=== PATIENT | female | born 1950 | race Caucasian/White ===

== ENCOUNTER 2023-10-24 14:40 | Emergency (ER) | payer MEDICARE, OTHER, SELFPAY ==
[2023-10-24] VITALS (22 sets, daily range): BP systolic 91–115; BP diastolic 32–85; PULSE 91–102; BMI 23.8
--- NOTE | 2023-10-24 15:11 | ED.GENMED ---
History of Present Illness
General
Chief Complaint: Fainting Sensation
Source: patient and ambulance crew
Time Seen by Provider: 10/24/23 15:06
History of Present Illness
History of Present Illness:
73-year-old female with past medical history of chronic kidney disease (dialysis normally on Friday but while at [facility] she is getting this Friday and Friday), hypertension, hyperlipidemia presenting to the
emergency department from dialysis where patient reports over the last 30 minutes of her dialysis session she started to feel lightheaded, generalized weakness and as if she were going to pass out. It was reported by EMS that the facility was
having a hard time getting a blood pressure on the patient and when they took patient's blood pressure it was 88/50. Patient was administered 200 mL of normal saline and 0.625 mg of droperidol. She reports feeling significantly better at time of
my examination and otherwise asymptomatic. It was noted that patient was diagnosed with COVID at the beginning of October and ultimately ended up being hospitalized at [facility] for an extended hospitalization and was then transferred to [facility] for rehab where she is currently residing. Patient is otherwise denying any chest pain, shortness of breath, palpitations, new fevers or infectious symptoms, abdominal pain, nausea, vomiting or any other concerns. Patient also notes that she
did not have any breakfast or anything to eat prior to her dialysis which is very 8 for her as well and she believes this is also been a reason why she felt lightheaded during dialysis.
Past History
Past History
ED Past Medical History: HTN, Hypercholesterolemia and Renal failure
ED Past Surgical History: Cholecystectomy and Gynecological
Social History
Tobacco: Former smoker
Alcohol: None
Drug: None
Personal: Single
Living: alone
Employment: Employed
Review of Systems
Review of Systems
All Other Systems: ROS reviewed and negative except as documented in HPI and ROS
Phy Exam
Physical Exam
Physical Exam:
GENERAL: Alert , in no apparent distress
EYE: Clear conjunctiva
NECK: Supple
ENT: o/p clr, mmm.
CARDIAC: Regular rate and rhythm, systolic murmur right second intercostal space.
LUNGS: Clear breath sounds bilaterally, no acute respiratory distress, no wheezes/rales/rhonchi, dialysis port right anterior chest wall
ABDOMEN: Soft, without focal tenderness, no r/g, no cvat
NEUROLOGICAL: Alert and oriented x 3, no focal neuro deficits, moves all extremities
SKIN: Warm and dry, skin intact.
MUSCULOSKELETAL: No edema, well perfused.
PSYCH: Normal and appropriate interaction.
Scores
Heart Failure Risk
Heart Failure Risk Score: Not Applicable
Heart Score for Chest Pain Patients
STEMI patient?: Not applicable
Withdrawal Assessment of Alcohol
Withdrawal Assessment Completed?: Not applicable
Course
Orders/Labs/Results
Orders:
Orders
10/24/23 15:00
Electrocardiogram (*1) Urgent
Reason for Study: Vertigo / Dizzy
10/24/23 15:01
EKG- Treatment ONCE
10/24/23 15:05
Complete Blood Count/With Diff Urgent
Comprehensive Metabolic Panel Urgent
10/24/23 15:11
Orthostatic VS- Treatment ONCE
Abnormal Lab Results
10/24/23
15:05
RBC 2.47 L 10^6/uL
(4.20-5.40)
Hgb 8.2 L g/dL
(12.0-16.0)
Hct 23.7 L %
(37.0-47.0)
MCH 33.2 H pg
(27.0-31.0)
RDW 16.7 H %
(11.5-14.5)
MPV 11.1 H fL
(7.4-10.4)
Absolute Neuts (auto) 8.6 H 10^3/uL
(1.4-6.5)
Absolute Lymphs (auto) 0.6 L 10^3/uL
(1.2-3.4)
Neutrophils % 86.5 H %
(42.2-75.2)
Lymphocytes % 6.2 L %
(20.5-51.1)
Sodium 133 L mmol/L
(135-145)
Carbon Dioxide 21 L mmol/L
(22-30)
Creatinine 1.6 H mg/dL
(0.6-1.0)
Glucose 206 H mg/dl
(70-99)
Total Protein 5.4 L g/dl
(6.3-8.2)
Albumin 3.1 L g/dl
(3.5-5.0)
10/24/23 15:05
10/24/23 15:05
Vital Signs
Initial and Last Documented VS:
Initial Vital Signs
Temp Pulse Resp BP Pulse Ox
98.7 F 99 18 115/85 92
10/24/23 14:48 10/24/23 14:48 10/24/23 14:48 10/24/23 14:48 10/24/23 14:48
Last Documented Vital Signs
Temp Pulse Resp BP Pulse Ox
98.7 F 95 17 95/60 92
10/24/23 14:48 10/24/23 21:00 10/24/23 21:00 10/24/23 21:00 10/24/23 14:48
MDM/Problems Addressed
Differential Diagnosis Includes:
Orthostasis, hypotension, electrolyte abnormality, less concern for acute infectious etiology
MDM/Problems Addressed:
73-year-old female presenting to the emergency department for evaluation of generalized weakness, lightheadedness and near syncope. Symptoms started with 30 minutes remaining in her dialysis session. Notes that while she had COVID she was still
getting regular dialysis. I do suspect a degree of orthostasis/hypotension likely from being dialyzed as well as not having anything to eat or drink this morning. Patient reports full symptomatic improvement and without any specific concerns while
in the ER. Will obtain labs, fluids by mouth as tolerated and will check orthostatic vital signs. I do anticipate discharge back to [facility] for continued rehab.
Chronic conditions affecting care: Kidney disease
*Pulse Oximetry
Patient hypoxic: no
*Sales Service Assistant Interpretation
Rate: normal
Rhythm: sinus and PVC's
*Critical Care Note
Total Time (30-74mins, 75-104mins- exclusive of procedures): Not Applicable
Patient Management
Escalation/DeEscalation of care consider admission/obs:
Patient continues to feel well and in no acute distress. No lab comparison however I suspect patient's anemia is likely from chronic kidney disease. No significant electrolyte derangement. Asymptomatic while checking orthostatics. Patient feels
comfortable being discharged back to her rehab facility. Stable for discharge and will arrange for transport.
ED Attending Note
-
Portions of this chart may have been created with voice recognition software.� Occasional wrong word or��sound alike� substitutions may have occurred due to the inherent limitations of voice recognition software.
Discharge Plan
Departure
Patient Disposition: Longterm/SNF
Date of Disposition: 10/24/23
Time of Disposition: 17:21
Patient with high blood pressure during this ER visit?: No
Discharge Problem:
Orthostasis, CKD (chronic kidney disease)
Prescriptions:
No Action
furosemide 40 mg Tablet
40 mg PO .BID ON MOWEFR
acetaminophen 325 mg Tablet
650 mg PO Q6HPRN PRN (Reason: mild pain)
Guaifenesin DM 10-200 mg/5 mL Liquid
10 ml PO Q6HPRN PRN (Reason: cough)
clopidogrel 75 mg Tablet
75 mg PO DAILY
insulin aspart U-100 100 unit/mL Solution
1 sliding scale dose SC AC
Patient Comments:
10/24/23: 150-200=1u,201-250=2u,251-300=3u,301-350=4u,351-400=5u,>400=6u
docusate sodium [Colace] 100 mg Capsule
100 mg PO DAILY
aspirin 81 mg Tablet,Chewable
81 mg PO DAILY
midodrine 2.5 mg Tablet
2.5 mg PO DAILYPRN PRN (Reason: <90 SBP)
metoprolol succinate [Toprol XL] 25 mg Tablet Extended Release 24 Hr
25 mg PO DAILY
rosuvastatin 40 mg Tablet
40 mg PO QPM
cholecalciferol (vitamin D3) [Vitamin D3] 25 mcg (1,000 unit) Tablet
25 mcg PO DAILY
ferrous gluconate 325 mg (36 mg iron) Tablet
324 mg PO DAILY
krill oil 500 mg Capsule
500 mg PO DAILY
sacubitril-valsartan 24-26 mg Tablet
1 tab PO BID
Referrals:
José Antonio Gage I., DO [Family Provider] -
Interventions
Interventions:
*Risk Screen - Suicide Last Done: 10/24/23 14:58
*General Assessment Last Done: 10/24/23 14:48
*Neglect/Abuse Screening Last Done: 10/24/23 14:48
*ED COVID-19 Vaccine History Last Done: 10/24/23 14:59
ED- Cardiac Assessment Last Done: 10/24/23 20:53
ED- Neurological Assessment Last Done: 10/24/23 15:00
Discharge Date and Time
Print Language: CYPRIOT
[2023-10-24 15:20] LABS: % Basophils 0.4 % (0-2); % Eosinophils 0.9 % (0-6); % Immature Granulocytes 0.3 % (0-0.5); % Lymphocytes 6.2 % (20.5-51.1); % Monocytes 5.7 % (1.7-9.3); % Neutrophils 86.5 % (42.2-75.2); Absolute Eosinophils 0.1 10^3/uL (0-0.7); Absolute Lymphocytes 0.6 10^3/uL (1.2-3.4); Absolute Monocytes 0.6 10^3/uL (0.1-0.6); Absolute Neutrophils 8.6 10^3/uL (1.4-6.5); Hematocrit 23.7 % (37.0-47.0); Hemoglobin 8.2 g/dL (12.0-16.0); Mean Corp Hgb Conc. 34.6 g/dL (33.0-37.0); Mean Corpuscular Hgb 33.2 pg (27.0-31.0); Mean Platelet Volume 11.1 fL (7.4-10.4); Nucleated Red Blood Cells % 0 %; Platelet Count 176 10^3/uL (130-400); Red Blood Cell Count 2.47 10^6/uL (4.20-5.40); Red Cell Dist. Width 16.7 % (11.5-14.5)
[2023-10-24 15:30] LABS: ALT (SGPT) 23 U/L (0-35); AST (SGOT) 19 U/L (14-36); Albumin 3.1 g/dl (3.5-5.0); Alkaline Phosphatase 85 U/L (38-126); Blood Urea Nitrogen 14 mg/dl (7-17); Calcium 8.6 mg/dl (8.4-10.2); Carbon Dioxide 21 mmol/L (22-30); Chloride 100 mmol/L (98-107); Estimated Creatinine Clearance 24 ml/min; Glucose 206 mg/dl (70-99); Potassium 3.7 mmol/L (3.5-5.1); Sodium 133 mmol/L (135-145); Total Bilirubin 0.5 mg/dl (0.2-1.3); Total Protein 5.4 g/dl (6.3-8.2); eGFR 33.42
== END 2023-10-24 21:49 ==
LOC: EMR 14:40
PROVIDERS: EMERGENCY PHYSICIAN Emergency Medicine; FAMILY PHYSICIAN Internal Medicine
DX: R55 Syncope and collapse (principal); I12.0 Hypertensive chronic kidney disease with stage 5 chronic kidney disease or end stage renal disease; N18.6 End stage renal disease; Z99.2 Dependence on renal dialysis; E78.00 Pure hypercholesterolemia, unspecified; Z79.82 Long term (current) use of aspirin; Z86.16 Personal history of COVID-19; Z87.891 Personal history of nicotine dependence; Z90.49 Acquired absence of other specified parts of digestive tract
CPT/HCPCS: 99284; 80053; 85025; 93005

== ENCOUNTER 2023-12-30 07:41 | Inpatient (IN) | payer MEDICARE, OTHER, SELFPAY ==
[2023-12-27 17:42] VITALS: BP 134/51
[2023-12-27 18:12] LABS: % Basophils 1.6 % (0-2); % Eosinophils 4.1 % (0-6); % Immature Granulocytes 0.2 % (0-0.5); % Lymphocytes 15.1 % (20.5-51.1); % Monocytes 10.6 % (1.7-9.3); % Neutrophils 68.4 % (42.2-75.2); Absolute Basophils 0.1 10^3/uL (0-0.2); Absolute Eosinophils 0.3 10^3/uL (0-0.7); Absolute Monocytes 0.7 10^3/uL (0.1-0.6); Absolute Neutrophils 4.4 10^3/uL (1.4-6.5); Hematocrit 39.4 % (37.0-47.0); Mean Corpuscular Hgb 32.3 pg (27.0-31.0); Mean Platelet Volume 10.2 fL (7.4-10.4); Nucleated Red Blood Cells % 0 %; Platelet Count 223 10^3/uL (130-400); Red Blood Cell Count 4.02 10^6/uL (4.20-5.40); Red Cell Dist. Width 15.1 % (11.5-14.5); White Blood Cell Count 6.4 10^3/uL (4.8-10.8)
[2023-12-27 18:16] LABS: Erythrocyte Sed Rate 28 mm/hour (0-20)
[2023-12-27 18:23] LABS: Lactic Acid 1.2 mmol/L (0.7-2.0)
[2023-12-27 18:27] LABS: ALT (SGPT) 13 U/L (0-35); AST (SGOT) 18 U/L (14-36); Albumin 4.1 g/dl (3.5-5.0); Alkaline Phosphatase 68 U/L (38-126); Blood Urea Nitrogen 39 mg/dl (7-17); Calcium 9.4 mg/dl (8.4-10.2); Carbon Dioxide 19 mmol/L (22-30); Chloride 98 mmol/L (98-107); Glucose 173 mg/dl (70-99); Potassium 3.9 mmol/L (3.5-5.1); Sodium 134 mmol/L (135-145); Total Bilirubin 0.3 mg/dl (0.2-1.3); Total Protein 6.4 g/dl (6.3-8.2); eGFR 15.11
[2023-12-27 19:42] VITALS: BMI 21.9
[2023-12-27 19:43] VITALS: BP 142/54
--- NOTE | 2023-12-27 19:53 | ED.MUSCINJ ---
HPI-Injury
General
Chief Complaint: Musculo-Skeletal Complaint
Source: patient and long-term
Exam Limitations: none
Time Seen by Provider: 12/27/23 18:37
Nursing documentation reviewed up to this point in time: agreed with
History of Present Illness-Injury
Is this injury a work related problem?: No
Is pt an associate of [facility]/[place]?: No
Initial Injury comments:
Patient to ED from [facility] for BLE arterial stenosis, nonhealing wound right 5th toe, bilateral foot pain. Patient states she has had pain and tingling in her feet for the past 2 weeks. SHe had an outpatient arterial doppler completed
today. Results reveal severe BLE arterial stenosis. PCP advised her to come to ED for admission. She is a dialysis pateint. Receives dialysis Fri. She reports completing dialysis yesterday. Brought to ED via EMS for eval.
Past History
Past History
ED Past Medical History: CAD, CHF, HTN, Hypercholesterolemia, NIDDM, [place] and Renal failure
ED Past Surgical History: Cholecystectomy and Gynecological
Social History
Tobacco: Former smoker
Alcohol: None
Drug: None
Personal: Single
Living: alone
Employment: Employed
Review of Systems
Review of Systems
Allergies reviewed?: Yes
All Other Systems: ROS reviewed and negative except as documented in HPI and ROS
Constitutional: Reports no symptoms
EENT: Reports no symptoms
Respiratory: Reports no symptoms
Cardiac: Reports no symptoms
ABD/GI: Reports no symptoms
: Reports no symptoms
Musculoskeletal: Reports joint pain (pain to bilateral feet)
Skin: Reports other (Nonhealing wound right 5th toe, necrotic tissue)
Neurological: Reports no symptoms
Psychiatric: Reports no symptoms
Phy Exam
General Physical Exam
General Presentation: mild distress
General age: appears stated age
General Skin: warm and dry
General Habitus: normal
General Mental: alert
Cardiovascular Exam
Cardiovascular Exam: regular rate/rhythm
Pulmonary Exam
Pulmonary Exam: lungs clear and no respiratory distress
Gastrointestinal Exam
Gastrointestinal Exam: normal bowel sounds and non tender
Musculoskeletal Exam
Musculoskeletal Exam: other (bilateral DP by doppler. Unable to obtain bilateral PT by doppler)
Skin Exam
Skin Exam: normal color, warm/dry, no rash and other (Nonhealing wound right 5th toe. surrounding cellulitis, necrotic tissue)
Psychiatric Exam
Psychiatric Exam: normal mood/affect
Injury Course
Orders/Labs/Results
Orders:
Orders
12/27/23 18:02
C-Reactive Protein Urgent
Complete Blood Count/With Diff Urgent
Comprehensive Metabolic Panel Urgent
Erythrocyte Sed Rate Urgent
Lactate Level [Lactic Acid] Urgent
12/27/23 19:38
CT Abd Aorta Angio W/ Run Off Urgent
Comment:
Reason For Exam: Severe BLE stenosis.
12/27/23 21:47
Vancomycin 1 Gram/200 ml [Vancocin] 1 gram in 200 ml IV NOW
12/27/23 23:14
Vascular Surgery Consult Urgent
Consulting Provider: Mirna Faustin
Was physician already notified: Yes
12/27/23 23:15
PODIATRY CONSULT Urgent
Consulting Provider: Salvador Lopez
Was physician already notified: Yes
Abnormal Lab Results
12/27/23
18:02
RBC 4.02 L 10^6/uL
(4.20-5.40)
MCH 32.3 H pg
(27.0-31.0)
RDW 15.1 H %
(11.5-14.5)
Absolute Lymphs (auto) 1.0 L 10^3/uL
(1.2-3.4)
Absolute Monos (auto) 0.7 H 10^3/uL
(0.1-0.6)
Lymphocytes % 15.1 L %
(20.5-51.1)
Monocytes % 10.6 H %
(1.7-9.3)
ESR 28 H mm/hour
(0-20)
Sodium 134 L mmol/L
(135-145)
Carbon Dioxide 19 L mmol/L
(22-30)
BUN 39 H mg/dl
(7-17)
Creatinine 3.1 H mg/dL
(0.6-1.0)
Glucose 173 H mg/dl
(70-99)
C-Reactive Protein 10.90 H mg/L
(0.0-10.00)
12/27/23 18:02
12/27/23 18:02
*Radiology
Radiology exam reviewed: radiology read reviewed
*Pulse Oximetry
Patient hypoxic: no
*Critical Care Note
Total Time (30-74mins, 75-104mins- exclusive of procedures): Not Applicable
Update Note
Update Note:
Dr. Faustin notified of patient status, outpatient US results. Copy of CT results sent to him via [employer] text. Will see patient in AM. Dr. Lopez also consulted and will follow upw tih patient in AM
ED Attending Note
-
Portions of this chart may have been created with voice recognition software.� Occasional wrong word or��sound alike� substitutions may have occurred due to the inherent limitations of voice recognition software.
Discharge Plan
Departure
Patient Disposition: Admit
Date of Disposition: 12/27/23
Time of Disposition: 21:49
Presentation/result/management discussed w/ accepting MD/DO: Hospitalist
Patient with high blood pressure during this ER visit?: No
Condition: Fair
Covid-19: Not Applicable
Discharge Problem:
Arterial stenosis, PAD (peripheral artery disease), Abscess or cellulitis of foot, Non-healing open wound of toe
Referrals:
Nati Don MD [Family Provider] -
Interventions
Interventions:
*Risk Screen - Suicide Last Done: 12/27/23 17:48
*General Assessment Last Done: 12/27/23 19:43
*Neglect/Abuse Screening Last Done: 12/27/23 17:48
ED- Fall Risk Assessment Last Done: 12/27/23 19:43
*ED COVID-19 Vaccine History Last Done: 12/27/23 17:46
ED-Musculoskeletal Assessment Last Done: 12/27/23 19:43
Discharge Date and Time
Print Language: UKRAINIAN
--- NOTE | 2023-12-27 22:16 | HPS.HSE ---
Addendum entered and electronically signed by Luis Navarrete DO 12/27/23 23:53:
Patient seen and examined independently. Agree with findings and plan as set forth by JAMES Carmichael.
Patient is a 73y F with PMH significant for ASCVD, ESRD on HD and DM-II who was sent to the ED this evening from local [facility] for evaluation of R foot discoloration. Patient states that she feels fairly well. She does not have significant discomfort
in the foot. She has ecchymosis / discoloration of the R 5th toe with some superficial skin peeling and surrounding bruising / petechiae. Patient cannot recall any specific injury, trauma, etc. Patient denies any complaints such as fevers,
chills, N/V/D, etc.
Patient was hospitalized about 2 months ago (has been at [facility] since). She believes this was at [facility] though she is not clear on the reason for her initial hospitalization.
Patient was started on oral cephalosporin at the [facility] with her first dose given after HD yesterday (12/25).
Ass:
R Foot Discoloration
ASCVD
ESRD on HD
Chronic HF - Unknown Type
Hypotension
DM-II
Anemia of CKD
Secondary Hyperparathyroidism
Ambulatory Dysfunction
RUE Weakness / Nerve Injury (associated with AVF placement / removal)
Plan:
Observe overnight for further evaluation and treatment.
CT angio was done in the ED this evening (scanned report) which shows significant and widespread vascular disease.
Vascular Surgery and Podiatry consulted for further evaluation.
Continue current ASCVD med regimen including DAPT, statin, etc.
Observe off of further abx for now.
Follow for any clinical changes.
Continue usual outpatient medications.
Follow glucose and cover with SSI as needed.
Nephrology evaluation for HD needs during acute stay.
Send to [facility] for records of most recent hospitalization.
Original Note:
Family Physician
-
Family Physician: Nati Don
Chief Complaint
-
Sent from [facility] rehab for outpatient arterial Doppler showing severe bilateral lower extremity arterial stenosis, right fifth toe reported wound not healing
History of Present Illness
73-year-old female from [facility] half-way with a nonhealing wound to the right fifth toe and bilateral foot pain. The patient states she is unsure how she got bruising to the dorsal part of her right foot with ecchymosis to right fifth toe
and a scab to her left heel. She was unsure if he hit it on anything. She does report a fixed income portfolio manager came to the half-way and fixed her ingrown toenail to her right foot approximately 2 weeks ago. She reports taking 1 dose of cefadroxil 500 mg
yesterday 12/26/2023 at dialysis. She had outpatient arterial Doppler today showing severe bilateral lower extremity arterial stenosis. The report is scanned into the computer. she was advised to come to the ER for admission by her PCP she has
end-stage renal disease and is on dialysis Friday. She states she has been at [facility] for the last 2 months initially had rehab delayed for several weeks due to having COVID in the beginning of October when she arrived
there. She reports she is currently walking with a cane and was able to walk up and down 8 steps over the last week. She believes her discharge is coming up shortly. She lives with her sister who is a chiropractor. They share a home to where the
patient lives on the second floor and has to go up approximately 12 steps. She reports to me she has poor memory recall. She denies headache, fever, chills, chest pain, palpitations, shortness breath, cough, abdominal pain, nausea, vomiting,
diarrhea, urinary symptoms. She states they replaced her dialysis catheter to her right upper chest wall on 3 days ago. She had prior attempt for a fistula placement in her right forearm and suffered nerve damage to her right hand.
Currently she is not able to fully open or fully close hand in a grasp.
Other past medical history ESRD dialysis Friday, COVID-30 October 2023, memory impairment per patient, chronic ambulatory dysfunction, PVD, carotid stenosis, anemia of chronic disease, CHF, HTN, HLD, DM2/diabetic retinopathy,
hyperparathyroidism, hearing impaired left from childhood, nonrheumatic aortic valve stenosis, vertigo, pleural effusion,? Skin CA removal to nose
Medical History
Past Medical History
Past Medical History: Reports Other
Additional Past Medical History:
ESRD dialysis Friday
anemia of chronic disease
Memory impairment per patient reported
COVID-30 October 2023
Chronic ambulatory dysfunction
PVD
Carotid stenosis
CHF unknown type
HTN
HLD
DM2/diabetic retinopathy,
Hyperparathyroidism
Hearing impaired left from childhood
Nnonrheumatic aortic valve stenosis
Vertigo
pleural effusion Per half-way chart
? Skin CA removal to nose
Past Surgical History: Reports Other
Additional Past Surgical History:
Left ear surgery
Social History
Tobacco: Non-smoker
Alcohol: None
Drug: None
Personal: Single
Living: With Family (Lives upstairs above her sister Mona)
Employment: Retired
Family History
Family History: Unable to Obtain
Allergies / Home Medications
Allergies reflects when Allergies were last updated in [email or web address].
Home Medications with original date entered in [email or web address]
Allergy/Medication List:
Allergies
Allergy/AdvReac Type Severity Reaction Status Date / Time
No Known Allergies Allergy Unverified 10/24/23 14:48
Home Medications
acetaminophen 325 mg tablet 650 mg PO Q6H PRN mild pain 12/27/23
aspirin 81 mg chewable tablet 81 mg PO DAILY 12/27/23
cefadroxil 500 mg capsule 500 mg PO MOWEFR 12/27/23
cholecalciferol (vitamin D3) 25 mcg (1,000 unit) tablet 25 mcg PO DAILY 12/27/23
clopidogrel 75 mg tablet 75 mg PO DAILY 12/27/23
docusate sodium 100 mg capsule (Colace) 100 mg PO DAILY 12/27/23
ferrous gluconate 325 mg (36 mg iron) tablet 325 mg PO DAILY 12/27/23
furosemide 40 mg tablet 80 mg PO BID 12/27/23
guaifenesin 100 mg/5 mL oral liquid 200 mg PO Q8H PRN cough 12/27/23
metoprolol succinate 25 mg tablet,extended release 24 hr 25 mg PO DAILY 12/27/23
midodrine 5 mg tablet 5 mg PO BID 12/27/23
omega 8-[id number]-[id number]-fish oil 1,000 mg (120 mg-180 mg) capsule (Fish Oil) 1 cap PO DAILY 12/27/23
ondansetron HCl 4 mg tablet 4 mg PO Q6H PRN nausea 12/27/23
rosuvastatin 40 mg tablet 40 mg PO DAILY 12/27/23
sacubitril 24 mg-valsartan 26 mg tablet 1 tab PO BID 12/27/23
trazodone 50 mg tablet 25 mg PO HS 12/27/23
white petrolatum 41 % topical ointment (Aquaphor Original) 1 applic topical DAILY PRN itching 12/27/23
Review of Systems
-
History Source: Patient
A 12 point ROS was completed and negative except as noted: Yes
Constitutional: Denies Fever or Fatigue
EENT: Denies Sore Throat or Runny Nose
Respiratory: Denies Cough or Trouble Breathing
Cardiac: Denies Chest Pain, Diaphoresis or Palpitations
Abdomen/GI: Denies Abdominal Pain, Nausea, Vomiting, Diarrhea, Constipated, Bloody Stools or Black Stools
: Denies Dysuria, Frequency, Flank Pain, Incontinence, Difficulty Voiding or Urgency
Musculoskeletal: Denies Joint Pain or Edema
Skin: Reports Other (Contusion right fifth toe, right dorsal foot under third fourth fifth metatarsal with a petechial rash, scab to right heel, right great toenail partial missing due to removal of ingrown toenail); Denies Itching or Rash
Neurological: Reports Other (Chronic right hand weakness inability to fully grasp or open right hand secondary to nerve damage from AV fistula attempt in the right forearm); Denies Dizzy, Headache or Numbness
Endocrine: Reports No Symptoms
Hematologic/Lymphatic: Reports No Symptoms
Psych: Reports Calm
Physical Exam
Vital Signs
Vital Signs
Temp Pulse Resp BP Pulse Ox
98.6 F 79 20 142/54 94
12/27/23 19:43 12/27/23 19:43 12/27/23 19:43 12/27/23 19:43 12/27/23 19:43
Physical Exam
General: Comfortable and Conversant; No Pain, Fever or Chills
HEENT: NormoCephalic, Anicteric, Moist mucous membranes, PERRLA, [place] Conjunctivae and No Ptosis
Respiratory: Clear; No Wheezes, Rales or Rhonchi
Cardiac: S1/S2; No Murmur, Rub, Gallop or Peripheral Edema
Breast: Deferred by me
GI: Soft, Non Tender, Non Distended, Normal Bowel Sounds and No Hepatosplenomegaly
Rectal: Deferred by Provider
Genito-urinary: Deferred by me
Musculoskeletal: No Clubbing, No Cyanosis and No Edema
Skin: Warm, Dry, IV/Catheter Site (Dialysis catheter right upper chest) and Other (Contusion right fifth toe, right dorsal foot under third fourth fifth metatarsal with a petechial rash, scab to right heel, right great toenail partial missing due to
removal of ingrown toenail); No Rash
Neuro: AO x 3 (But with poor memory recall) and Other (Slight impaired hearing left ear,Chronic right hand weakness inability to fully grasp or open right hand secondary to nerve damage from AV fistula attempt in the right forearm); No Slurred
Speech, Facial Droop, Tremors or Sedated
Laboratory Results
-
12/27/23 18:02
12/27/23 18:02
Laboratory Results
Lactic Acid 1.2 mmol/L (0.7-2.0) 12/27/23 18:02
Total Bilirubin 0.3 mg/dl (0.2-1.3) 12/27/23 18:02
AST 18 U/L (14-36) 12/27/23 18:02
ALT 13 U/L (0-35) 12/27/23 18:02
Alkaline Phosphatase 68 U/L (38-126) 12/27/23 18:02
Impression/Plan
-
Impression/plan:
Observation MedSurg
#Nonhealing right fifth toe contusion secondary to arterial stenosis/PVD
#Right heel scab
Outpatient arterial Doppler today 12/27/2023 showing arterial stenosis per [facility] report scanned into computer
-Patient received 1 dose of cefadroxil 500 mg yesterday 12/26/2023 will hold further
-Consult wound care
-ER consulted Podiatry Dr. Lopez
-ER consulted Vascular surgery
-PT/OT/correctional case records supervisor consult
CT angiogram bilateral lower extremities
Right lower extremity: Moderate diffuse atheromatous disease.
Multifocal segments of occlusion throughout superficial femoral artery with reconstitution of flow distally although severely narrowed popliteal artery.
Single anterior tibial artery runoff in the calf crossing the ankle continuing on as patent dorsalis pedis artery in the foot
Left lower extremity: Moderate diffuse atheromatous disease. Multifocal segments of occlusion throughout the superficial femoral artery with reconstitution of flow in diminutive caliber popliteal artery.
Occlusion of the proximal anterior tibial artery however two-vessel anterior tibial and peroneal arterial runoff in the proximal mid calf with only anterior tibial artery crossing the ankle
continuing on as patent dorsalis pedis artery in the foot
CT angiogram abdomen:
Coronary artery calcifications.
Moderate diffuse atheromatous disease.
Moderate calcification and severe narrowing at the origins of all major visceral arteries, with all vessels remain patent.
Small hiatal hernia. Stool-filled colon and rectum.
Fatty liver.
Nonobstructing staghorn calculus filling the left renal collecting system with chronic left renal atrophy. Right renal cortical scarring.
Indeterminate 5 mm pulmonary nodule right middle lobe
#Indeterminate 5 mm Pulmonary nodule right middle lobe incidental found on CT angiogram of chest and abdomen
-Follow-up outpatient with pulmonary for monitoring
#ESRD dialysis Friday
#Right upper chest wall dialysis catheter new 1 placed 3 days ago per patient on 12/25/2023
#Attempt to put AV fistula right forearm causing nerve damage to left hand with limited opening and grasp
-Patient completed dialysis yesterday 12/26/2023
-Follow BMP
-Renal diet
#Anemia of chronic disease
Hgb 13
#CAD/NSTEMI per any chart
-Continue aspirin, statin 40 mg daily, Plavix, metoprolol succinate 25 mg daily
#DM2/diabetic retinopathy
BS 173
Accu-Cheks with SSI, check HgbA1c
# HTN
BP 106/70
-Continue midodrine 5 mg twice daily
#HLD
Check lipid profile
No reported meds
#Chronic CHF unknown type
I/O, daily weights
-Continue Lasix 80 mg Friday
-Continue Entresto twice daily
#Carotid stenosis
-Continue aspirin, Plavix, statin
#Nonrheumatic aortic valve stenosis
#Hyperparathyroidism
#Chronic ambulatory dysfunction
PT/OT/correctional case records supervisor consult
#Insomnia
-Continue trazodone 25 mg at bedtime
Other PMH:
COVID-19 infection October 2023
Vertigo
hearing impaired left
DVT prophylaxis
DNR per patient and half-way chart
[2023-12-27 22:57] VITALS: BP 106/70
[2023-12-27] MEDS: VANCOCIN 200 IV (22:59)
[2023-12-28] VITALS (7 sets, daily range): BP systolic 106–137; BP diastolic 46–61; PULSE 60–86; O2SAT 96; BMI 19.1
[2023-12-28] MEDS: TYLENOL 650 MG PO ×2 (03:01→22:08)
--- NOTE | 2023-12-28 03:06 | PTCARENOTE ---
Patient arrived to unit via stretcher with dx of right foot 5th toe contusion, foot contusion, heel scab, bilat arterial stenosis. Patient pleasant and cooperative with care. Oriented to unit. Call huerta within reach. No signs of distress noted.
[2023-12-28 06:04] LABS: % Basophils 1.3 % (0-2); % Eosinophils 3.6 % (0-6); % Immature Granulocytes 0.4 % (0-0.5); % Lymphocytes 12.9 % (20.5-51.1); % Monocytes 13.2 % (1.7-9.3); % Neutrophils 68.6 % (42.2-75.2); Absolute Basophils 0.1 10^3/uL (0-0.2); Absolute Eosinophils 0.2 10^3/uL (0-0.7); Absolute Lymphocytes 0.9 10^3/uL (1.2-3.4); Absolute Monocytes 0.9 10^3/uL (0.1-0.6); Absolute Neutrophils 4.6 10^3/uL (1.4-6.5); Hemoglobin 11.9 g/dL (12.0-16.0); Mean Corp Hgb Conc. 33.1 g/dL (33.0-37.0); Mean Corpuscular Hgb 32.2 pg (27.0-31.0); Mean Corpuscular Volume 97.3 fL (81.0-99.0); Mean Platelet Volume 10.6 fL (7.4-10.4); Nucleated Red Blood Cells % 0 %; Platelet Count 198 10^3/uL (130-400); White Blood Cell Count 6.7 10^3/uL (4.8-10.8)
[2023-12-28 06:34] LABS: ALT (SGPT) 11 U/L (0-35); AST (SGOT) 19 U/L (14-36); Albumin 3.5 g/dl (3.5-5.0); Alkaline Phosphatase 63 U/L (38-126); Blood Urea Nitrogen 38 mg/dl (7-17); Calcium 8.9 mg/dl (8.4-10.2); Carbon Dioxide 18 mmol/L (22-30); Chloride 98 mmol/L (98-107); Estimated Creatinine Clearance 11 ml/min; Glucose 117 mg/dl (70-99); HDL Cholesterol 57 mg/dl; LDL Cholesterol, Calculated 109 mg/dl; Potassium 3.9 mmol/L (3.5-5.1); Sodium 131 mmol/L (135-145); Total Bilirubin 0.2 mg/dl (0.2-1.3); Total Cholesterol 186 mg/dl (50-199); Total Protein 5.7 g/dl (6.3-8.2); Triglyceride 104 mg/dl (10-149); Very Low Density Lipoprotein 20 mg/dl (0-30); eGFR 14.55
--- NOTE | 2023-12-28 07:55 | CON.VAS ---
Consultation
Consultation Request
Reason for Consultation: Bilateral Leg Pain and Wounds
Medical History
-
Chief Complaint: Bilateral Leg Pain and Wounds
History of Present Illness:
This is a 73F with HTN, CAD, HLD, DM, ESRD on HD who presents with two weeks of worsening bilateral lower extremity pain. Pain is at the heels which has been preventing her from ambulating. She states she only walks a few feet at a time. No previous
vascular interventions per patient. Has Right 5th and 1st toe dry gangrene with eschar on heel. Left heel with dry eschar
Past Medical History
Past Medical History: CAD, HTN and Hypercholesterolemia
Social History
Tobacco: Non-Smoker
Family History
Family History: Reviewed & Not Pertinent
Allergies / Home Medications
Allergy/AdvReac Type Severity Reaction Status Date / Time
No Known Allergies Allergy Unverified 10/24/23 14:48
�Medication �Instructions �Recorded �Confirmed �Type
Aquaphor 1 applic topical HS 12/27/23 12/27/23 History
Colace 100 mg PO DAILY 12/27/23 12/27/23 History
Toprol XL 25 mg PO DAILY 12/27/23 12/27/23 History
Vitamin D3 25 mg PO DAILY 12/27/23 12/27/23 History
Zofran 4 mg PO Q6H PRN nausea 12/27/23 12/27/23 History
acetaminophen 650 mg PO Q6H PRN pain 12/27/23 12/27/23 History
acetaminophen 325 mg tablet 650 mg PO Q6H PRN mild pain 12/27/23 12/27/23 History
aspirin 81 mg PO DAILY 12/27/23 12/27/23 History
aspirin 81 mg chewable tablet 81 mg PO DAILY 12/27/23 12/27/23 History
cefadroxil See Rx Instructions .Route .COMPLEX 12/27/23 12/27/23 History
cefadroxil 500 mg capsule 500 mg PO MOWEFR 12/27/23 12/27/23 History
cholecalciferol (vitamin D3) 25 25 mcg PO DAILY 12/27/23 12/27/23 History
mcg (1,000 unit) tablet
clopidogrel 75 mg tablet 75 mg PO DAILY 12/27/23 12/27/23 History
clopidogrel 75 mg tablet 75 mg PO DAILY 12/27/23 12/27/23 History
docusate sodium 100 mg capsule 100 mg PO DAILY 12/27/23 12/27/23 History
(Colace)
ferrous gluconate 325 mg PO DAILY 12/27/23 12/27/23 History
ferrous gluconate 325 mg (36 mg 325 mg PO DAILY 12/27/23 12/27/23 History
iron) tablet
furosemide 80 mg PO BID 12/27/23 12/27/23 History
furosemide 40 mg tablet 80 mg PO BID 12/27/23 12/27/23 History
glucagon 1 mg IM DIRECTED PRN 12/27/23 12/27/23 History
hypoglycemia
guaifenesin 10 ml PO Q8H PRN cough 12/27/23 12/27/23 History
guaifenesin 100 mg/5 mL oral liquid 200 mg PO Q8H PRN cough 12/27/23 12/27/23 History
insulin aspart U-100 1 dose SC ACHS 12/27/23 12/27/23 History
metoprolol succinate 25 mg 25 mg PO DAILY 12/27/23 12/27/23 History
tablet,extended release 24 hr
midodrine 5 mg PO BID 12/27/23 12/27/23 History
midodrine 5 mg tablet 5 mg PO BID 12/27/23 12/27/23 History
omega 9-qoq-llu-fish oil 1,000 mg 1 cap PO DAILY 12/27/23 12/27/23 History
(120 mg-180 mg) capsule (Fish Oil)
omega-3 fatty acids-vitamin E 1,000 cap PO DAILY 12/27/23 12/27/23 History
1,000 mg capsule
ondansetron HCl 4 mg tablet 4 mg PO Q6H PRN nausea 12/27/23 12/27/23 History
rosuvastatin 40 mg tablet 40 mg PO DAILY 12/27/23 12/27/23 History
rosuvastatin 40 mg tablet 40 mg PO HS 12/27/23 12/27/23 History
sacubitril 24 mg-valsartan 26 mg 1 tab PO BID 12/27/23 12/27/23 History
tablet
sacubitril 24 mg-valsartan 26 mg 1 tab PO DAILY 12/27/23 12/27/23 History
tablet
trazodone 25 mg PO HS 12/27/23 12/27/23 History
trazodone 50 mg tablet 25 mg PO HS 12/27/23 12/27/23 History
white petrolatum 41 % topical 1 applic topical DAILY PRN itching 12/27/23 12/27/23 History
ointment (Aquaphor Original)
Physical Exam
Vital Signs
Temp Pulse Resp BP Pulse Ox
98.2 F 85 16 122/61 97
12/28/23 07:27 12/28/23 07:27 12/28/23 07:27 12/28/23 07:27 12/28/23 07:27
Lab Results
12/28/23 05:37
12/28/23 05:37
Physical Exam
General: Well Developed and Well Nourished
HEENT: Normocephalic
Respiratory: Clear
Cardiac: S1/S2 and Regular Rhythm
GI: Soft, Non Tender and Non Distended
Musculoskeletal: Other (Right 5th toe dry gangrene, 1st toe gangrene and left first toe dry wound with bilateral heel dry eschars )
Skin: Warm
Neuro: Awake
Psych: Calm
Pulses: Bilateral Femoral: +2
Assessment / Plan
-
73F with bilateral tissue loss. CTA reviewed demonstrating bilateral SFA occlusions.
-recommend podiatry consultation for wound care
-keep NPO aftermidnight for possible Angio tomorrow
-heel protector boots while in bed
-order PVR
Data Reviewed
-
CT Scan: Image Personally Visualized and interpreted
--- NOTE | 2023-12-28 08:39 | W.PN.POD ---
Today's Communication
Today's Communication
see above, no surgical treatment needed at this time
rec wound care consult, vasc, heel decub precautions, offloading
will sign off, call if needed
Assessment / Plan
-
a/p dry eschar Bl heels/hallux/right 5th toe---stable
no soi
rec wound care consult, dry bandages changes, heel decub precautions
Subjective
Chief Complaint
pt seen for Bl pedal wounds
Pain in heels Bl
full consult dictated
Subjective
vasc pedal pulses non palp, vasc has seen pt and set up for agram
derm dry superficial eschar Bl heel and right 5th toe, Bl hallux
no soi
intact dry eschar
Objective
Temp Pulse Resp BP Pulse Ox
98.2 F 85 16 122/61 97
12/28/23 07:27 12/28/23 07:27 12/28/23 07:27 12/28/23 07:27 12/28/23 07:27
12/28/23 05:37
12/28/23 05:37
Vital Signs and Lab results were reviewed.
[2023-12-28 08:50] LABS: Glucose - Point of Care 149 mg/dl (70-99)
[2023-12-28] MEDS: NOVOLOG FLEXPEN-LOW RESISTANCE SC ×2 (08:50→13:08)
[2023-12-28] MEDS: ENTRESTO 24 MG/26 MG 1 TAB PO ×2 (08:51→19:43)
[2023-12-28] MEDS: TOPROL XL 25 MG PO (08:51)
[2023-12-28] MEDS: VITAMIN D3 (cholecalciferol) 25 MCG PO (08:51)
[2023-12-28] MEDS: COLACE 100 MG PO (08:51)
[2023-12-28] MEDS: PLAVIX 75 MG PO (08:51)
[2023-12-28] MEDS: FEOSOL 325 MG PO (08:51)
[2023-12-28] MEDS: LOW STRENGTH ASPIRIN 81 MG PO (08:51)
[2023-12-28] MEDS: HEPARIN 5000 UNITS SC ×2 (08:52→19:44)
[2023-12-28] MEDS: ProAmatine 5 MG PO ×2 (08:57→17:38)
--- NOTE | 2023-12-28 11:06 | W.CON.NEPH ---
Consultation
-
Date/Time Consultation Requested: 12/28/23 0700
Date/Time Consultation Performed: 12/28/23 1100
Requesting Provider: Dr Navarrete
Performing Provider: Dr Tucker
Reason for Consultation: ESRD
Medical History
-
Chief Complaint: Right foot wound
History of Present Illness:
This is a 73-year-old female who has significant history of hypertension. She apparently had bilateral renal artery stenting done in the past likely for the hypertension though she does not recall the details. She also does not recall when these
were done. She remains on a multidrug regimen for hypertension but also requires midodrine twice daily for hypotension. She has diabetes which has been controlled with insulin therapy. She does have a history of heart failure likely with reduced
ejection fraction given medications that she is on such as Entresto. She says that she has never had nephrology evaluation in the past by her recollection. Last year in the fall she was admitted to [facility] for initial that she does not
recall. At that time however she developed worsening renal function and had to start dialysis. She has then been dialyzing outpatient at the [facility] though does not recall who her ultrasound specialist is. A few months ago she was readmitted to
[place] for another issue that she does not recall but then was ultimately placed at [facility] for rehabilitation. She has been there since. She was sent to the emergency room overnight for worsening right foot wounds. We are asked to
assist in management of her ESRD and dialysis.
Past Medical History
ESRD, failed right upper extremity AV fistula, hypertension, bilateral renal artery stenosis, heart failure reduced ejection fraction, diabetes mellitus type II, coronary artery disease, Mohs surgery for the nose for basal cell carcinoma,
nephrolithiasis
Social History
Tobacco: Non-Smoker
Alcohol: None
Family History
CKD and a sister
Allergies / Home Medications
Allergy/AdvReac Type Severity Reaction Status Date / Time
No Known Allergies Allergy Unverified 10/24/23 14:48
�Medication �Instructions �Recorded �Confirmed �Type
Aquaphor 1 applic topical HS 12/27/23 12/27/23 History
Colace 100 mg PO DAILY 12/27/23 12/27/23 History
Toprol XL 25 mg PO DAILY 12/27/23 12/27/23 History
Vitamin D3 25 mg PO DAILY 12/27/23 12/27/23 History
Zofran 4 mg PO Q6H PRN nausea 12/27/23 12/27/23 History
acetaminophen 650 mg PO Q6H PRN pain 12/27/23 12/27/23 History
acetaminophen 325 mg tablet 650 mg PO Q6H PRN mild pain 12/27/23 12/27/23 History
aspirin 81 mg PO DAILY 12/27/23 12/27/23 History
aspirin 81 mg chewable tablet 81 mg PO DAILY 12/27/23 12/27/23 History
cefadroxil See Rx Instructions .Route .COMPLEX 12/27/23 12/27/23 History
cefadroxil 500 mg capsule 500 mg PO MOWEFR 12/27/23 12/27/23 History
cholecalciferol (vitamin D3) 25 25 mcg PO DAILY 12/27/23 12/27/23 History
mcg (1,000 unit) tablet
clopidogrel 75 mg tablet 75 mg PO DAILY 12/27/23 12/27/23 History
clopidogrel 75 mg tablet 75 mg PO DAILY 12/27/23 12/27/23 History
docusate sodium 100 mg capsule 100 mg PO DAILY 12/27/23 12/27/23 History
(Colace)
ferrous gluconate 325 mg PO DAILY 12/27/23 12/27/23 History
ferrous gluconate 325 mg (36 mg 325 mg PO DAILY 12/27/23 12/27/23 History
iron) tablet
furosemide 80 mg PO BID 12/27/23 12/27/23 History
furosemide 40 mg tablet 80 mg PO BID 12/27/23 12/27/23 History
glucagon 1 mg IM DIRECTED PRN 12/27/23 12/27/23 History
hypoglycemia
guaifenesin 10 ml PO Q8H PRN cough 12/27/23 12/27/23 History
guaifenesin 100 mg/5 mL oral liquid 200 mg PO Q8H PRN cough 12/27/23 12/27/23 History
insulin aspart U-100 1 dose SC ACHS 12/27/23 12/27/23 History
metoprolol succinate 25 mg 25 mg PO DAILY 12/27/23 12/27/23 History
tablet,extended release 24 hr
midodrine 5 mg PO BID 12/27/23 12/27/23 History
midodrine 5 mg tablet 5 mg PO BID 12/27/23 12/27/23 History
omega 4-vrb-caa-fish oil 1,000 mg 1 cap PO DAILY 12/27/23 12/27/23 History
(120 mg-180 mg) capsule (Fish Oil)
omega-3 fatty acids-vitamin E 1,000 cap PO DAILY 12/27/23 12/27/23 History
1,000 mg capsule
ondansetron HCl 4 mg tablet 4 mg PO Q6H PRN nausea 12/27/23 12/27/23 History
rosuvastatin 40 mg tablet 40 mg PO DAILY 12/27/23 12/27/23 History
rosuvastatin 40 mg tablet 40 mg PO HS 12/27/23 12/27/23 History
sacubitril 24 mg-valsartan 26 mg 1 tab PO BID 12/27/23 12/27/23 History
tablet
sacubitril 24 mg-valsartan 26 mg 1 tab PO DAILY 12/27/23 12/27/23 History
tablet
trazodone 25 mg PO HS 12/27/23 12/27/23 History
trazodone 50 mg tablet 25 mg PO HS 12/27/23 12/27/23 History
white petrolatum 41 % topical 1 applic topical DAILY PRN itching 12/27/23 12/27/23 History
ointment (Aquaphor Original)
Review of Systems
-
No chest pain or shortness of breath. No pain in the foot.
All other systems: Negative unless noted
Physical Exam
Vital Signs
Vital Signs
Temp Pulse Resp BP Pulse Ox
98.2 F 85 16 122/61 97
12/28/23 07:27 12/28/23 07:27 12/28/23 07:27 12/28/23 07:27 12/28/23 07:27
Lab Results
WBC 6.7 10^3/uL (4.8-10.8) 12/28/23 05:37
RBC 3.70 10^6/uL (4.20-5.40) L 12/28/23 05:37
Hgb 11.9 g/dL (12.0-16.0) L 12/28/23 05:37
Hct 36.0 % (37.0-47.0) L 12/28/23 05:37
Plt Count 198 10^3/uL (130-400) 12/28/23 05:37
Sodium 131 mmol/L (135-145) L 12/28/23 05:37
Potassium 3.9 mmol/L (3.5-5.1) 12/28/23 05:37
Chloride 98 mmol/L (98-107) 12/28/23 05:37
Carbon Dioxide 18 mmol/L (22-30) L 12/28/23 05:37
BUN 38 mg/dl (7-17) H 12/28/23 05:37
Creatinine 3.2 mg/dL (0.6-1.0) H 12/28/23 05:37
eGFR 14.55 12/28/23 05:37
Glucose 117 mg/dl (70-99) H 12/28/23 05:37
Calcium 8.9 mg/dl (8.4-10.2) 12/28/23 05:37
Albumin 3.5 g/dl (3.5-5.0) 12/28/23 05:37
Laboratory Tests
10/24/23
15:05
[address] abdomen on 12/27/2023
IMPRESSION:
1. There is mixed density atherosclerotic plaque throughout the abdominal and lower extremity arterial system. There is resultant multifocal occlusion of the bilateral superficial femoral arteries with reconstitution of the distal right SFA and
reconstitution of the left popliteal artery. There is single vessel runoff at the level of the ankle bilaterally via the anterior tibial arteries.
2. Severe narrowing at the origin of the superior mesenteric artery. There are stents within the proximal bilateral renal arteries which appear patent.
3. Moderate edema within the distal bilateral lower extremities.
4. Large staghorn calculus within the left kidney with left greater than right bilateral renal atrophy.
5. 5 mm nodule within the right middle lobe. Consider follow-up CT chest to ensure resolution.
Physical Exam
Patient is awake alert oriented and in no distress. Mood and affect were pleasant, insight and judgment were good. Pupils are equal round and reactive to light, extraocular movements are intact, sclera were anicteric. Hearing was normal, ears and
nose are intact. Oropharynx was clear. Neck was supple with trachea midline and no thyromegaly. Heart was regular rate and rhythm without rubs. Lower extremities without edema. Lungs were clear to auscultation bilaterally and with normal
excursion. Abdomen was soft, nontender, with normal active bowel sounds, and no hepatosplenomegaly. Skin was without rash and with normal turgor.
Data Reviewed
-
CT Scan: Report Reviewed by me
Medical Tests (Nuc Med, Echo etc): Image Personally Visualized and interpreted (EKG on 10/24/2023 by my reading shows sinus rhythm PVCs, LVH)
Labs: Labs Reviewed by me
Old Records: Reviewed
Assessment/Plan
-
Assessment
ESRD
Hypotension
Heart failure reduced ejection fraction
Diabetes mellitus type 2
Nephrolithiasis, staghorn calculus
Severe atherosclerotic vascular disease
Coronary artery disease
Nonhealing right foot wound
Metabolic acidosis
Anemia
Plan
Dialysis tomorrow
PHYLICIA on dialysis
Check iron studies
Angiogram tomorrow, would like to plan dialysis afterwards
Continue midodrine
--- NOTE | 2023-12-28 11:34 | W.PN.HOSP.TC ---
Today's Communication/Plan
-
NPO after MN for angiogram
Assessment / Plan
Assessment / Plan
Patient is a 73y F with PMH significant for ASCVD, ESRD on HD and DM-II who was sent to the ED from local [place] for evaluation of R foot discoloration.
CT angiogram bilateral lower extremities
Right lower extremity: Moderate diffuse atheromatous disease.
Multifocal segments of occlusion throughout superficial femoral artery with reconstitution of flow distally although severely narrowed popliteal artery.
Single anterior tibial artery runoff in the calf crossing the ankle continuing on as patent dorsalis pedis artery in the foot
Left lower extremity: Moderate diffuse atheromatous disease. Multifocal segments of occlusion throughout the superficial femoral artery with reconstitution of flow in diminutive caliber popliteal artery.
Occlusion of the proximal anterior tibial artery however two-vessel anterior tibial and peroneal arterial runoff in the proximal mid calf with only anterior tibial artery crossing the ankle
continuing on as patent dorsalis pedis artery in the foot
CT angiogram abdomen:
Coronary artery calcifications.
Moderate diffuse atheromatous disease.
Moderate calcification and severe narrowing at the origins of all major visceral arteries, with all vessels remain patent.
Small hiatal hernia. Stool-filled colon and rectum.
Fatty liver.
Nonobstructing staghorn calculus filling the left renal collecting system with chronic left renal atrophy. Right renal cortical scarring.
Indeterminate 5 mm pulmonary nodule right middle lobe
#Nonhealing right fifth toe contusion secondary to arterial stenosis/PVD
#Right heel scab
-Outpatient arterial Doppler 12/27/2023 showing arterial stenosis per [place] report scanned into computer
-Patient received 1 dose of cefadroxil 500 mg yesterday 12/26/2023 will hold further
-Consult wound care
-appreciate vascular surgery consult - NPO after MN for possible angiogram
-no surgical treatment recommended by Podiatry
-heel protector boots while in bed
#Indeterminate 5 mm Pulmonary nodule right middle lobe incidental found on CT angiogram of chest and abdomen
-Follow-up outpatient with pulmonary for monitoring
#ESRD dialysis Friday
#Right upper chest wall dialysis catheter new 1 placed 3 days ago per patient on 12/25/2023
#Attempt to put AV fistula right forearm causing nerve damage to left hand with limited opening and grasp
-appreciate Nephrology
-HD tomorrow post angiogram
#Anemia of chronic disease
Hgb 13
#CAD/NSTEMI per any chart
-Continue aspirin, statin 40 mg daily, Plavix, metoprolol succinate 25 mg daily
#DM2/diabetic retinopathy
BS 173
Accu-Cheks with SSI, check HgbA1c
# HTN
BP 106/70
-Continue midodrine 5 mg twice daily
#HLD
Check lipid profile
No reported meds
#Chronic CHF unknown type
I/O, daily weights
-Continue Lasix 80 mg Friday
-Continue Entresto twice daily
#Carotid stenosis
-Continue aspirin, Plavix, statin
#Nonrheumatic aortic valve stenosis
#Hyperparathyroidism
#Chronic ambulatory dysfunction
PT/OT/welfare case worker consult
#Insomnia
-Continue trazodone 25 mg at bedtime
Other PMH:
COVID-19 infection October 2023
Vertigo
hearing impaired left
DVT prophylaxis
DNR per patient and residential chart
Anticipated Discharge: 24 - 48 hours
Subjective/Interval History
-
Date of Service: December 28, 2023
feeling well
foot center
Objective Data
-
Labs:
Laboratory Results
12/28/23
05:37
WBC 6.7
Hgb 11.9 L
Hct 36.0 L
Plt Count 198
Sodium 131 L
Potassium 3.9
Chloride 98
Carbon Dioxide 18 L
BUN 38 H
Creatinine 3.2 H
Glucose 117 H
Calcium 8.9
Total Bilirubin 0.2
AST 19
ALT 11
Alkaline Phosphatase 63
Vital Signs:
Vital Signs
Temp Pulse Resp BP Pulse Ox
98.2 F 85 16 122/61 97
12/28/23 07:27 12/28/23 07:27 12/28/23 07:27 12/28/23 07:27 12/28/23 07:27
Review of Systems
-
History Source: Patient
All other systems: Reviewed and negative
Physical Exam
-
General: No Apparent Distress
HEENT: PERRLA
Respiratory: Clear to Auscultation; Negative Wheezes
Cardiac: Regular Rhythm and S1/S2
GI: Soft and Nontender
Musculoskeletal: No Edema and Other (right foot with necrotic appearing 5th digit with scab; bilateral heel wounds)
Skin: Warm and Dry; Negative Rash
Neuro: AO x 3
Psych: Calm
Data Reviewed
-
Diagnostic Radiology: Report Reviewed by me
Labs: Labs Reviewed by me
[2023-12-28] MEDS: CRESTOR 10 MG PO (12:19)
[2023-12-28 12:56] LABS: Glucose - Point of Care 131 mg/dl (70-99)
--- NOTE | 2023-12-28 15:53 | CM ---
Patient was admitted from [facility], patient states she was living with her sister but has been unable to bear weight on her heels therefore she is having difficulty walking, patient also is ESRD on HD, patient resides at [facility] and patient's plan is to return to [facility] when stable.
[facility]
Report [phone]

PCP: Nati Don
Plan; Patient to return to [facility] when stable.
[2023-12-28 17:17] LABS: Glucose - Point of Care 251 mg/dl (70-99)
[2023-12-28] MEDS: NOVOLOG FLEXPEN-LOW RESISTANCE 3 UNITS SC (17:37)
[2023-12-28 21:26] LABS: Glucose - Point of Care 124 mg/dl (70-99)
[2023-12-28] MEDS: DESYREL 25 MG PO (22:04)
[2023-12-29 05:23] LABS: Glucose - Point of Care 98 mg/dl (70-99)
[2023-12-29 05:47] VITALS: BMI 18.7
[2023-12-29 07:05] LABS: Glucose - Point of Care 107 mg/dl (70-99)
[2023-12-29] MEDS: FEOSOL 325 MG PO (07:53)
[2023-12-29] MEDS: LOW STRENGTH ASPIRIN 81 MG PO (07:53)
[2023-12-29] MEDS: ENTRESTO 24 MG/26 MG 1 TAB PO ×2 (07:53→20:16)
[2023-12-29] MEDS: ProAmatine 5 MG PO ×2 (07:53→17:55)
[2023-12-29] MEDS: PLAVIX 75 MG PO (07:53)
[2023-12-29] MEDS: HEPARIN 5000 UNITS SC ×2 (07:53→20:21)
[2023-12-29] MEDS: VITAMIN D3 (cholecalciferol) 25 MCG PO (07:53)
[2023-12-29] MEDS: COLACE 100 MG PO (07:53)
[2023-12-29] MEDS: TOPROL XL 25 MG PO (07:53)
[2023-12-29] MEDS: CRESTOR 10 MG PO (07:53)
[2023-12-29 08:01] VITALS: BP 106/58
[2023-12-29 08:44] LABS: Hemoglobin 12.8 g/dL (12.0-16.0); Mean Corp Hgb Conc. 31.2 g/dL (33.0-37.0); Mean Corpuscular Hgb 31.4 pg (27.0-31.0); Mean Corpuscular Volume 100.7 fL (81.0-99.0); Mean Platelet Volume 10.1 fL (7.4-10.4); Platelet Count 227 10^3/uL (130-400); Red Blood Cell Count 4.07 10^6/uL (4.20-5.40); Red Cell Dist. Width 15.2 % (11.5-14.5); White Blood Cell Count 5.9 10^3/uL (4.8-10.8)
[2023-12-29 09:03] LABS: Carbon Dioxide 20 mmol/L (22-30); Chloride 96 mmol/L (98-107); Iron 121 ug/dl (37-170); Potassium 4.5 mmol/L (3.5-5.1); Sodium 136 mmol/L (135-145)
[2023-12-29 09:44] LABS: Percent Saturation 113 % (20-50); Total Iron Binding Capacity 107 ug/dl (265-497)
[2023-12-29 12:24] LABS: Hepatitis B Surface Antigen Negative (Negative)
[2023-12-29] MEDS: HEPARIN 500 UNITS IV ×2 (12:35→13:35)
[2023-12-29 12:42] LABS: Hepatitis B Surface Antibody Negative
[2023-12-29 12:42] LABS: Glucose - Point of Care 193 mg/dl (70-99)
--- NOTE | 2023-12-29 12:43 | W.PN.HOSP.TC ---
Today's Communication/Plan
-
OR tomm
npo pmn
HD today
Assessment / Plan
Assessment / Plan
Patient is a 73y F with PMH significant for ASCVD, ESRD on HD and DM-II who was sent to the ED from local [place] for evaluation of R foot discoloration.
#Nonhealing right fifth toe gangrene secondary to arterial stenosis/PVD
#Right heel scab
-Outpatient arterial Doppler 12/27/2023 showing arterial stenosis per [place] report scanned into computer
-Patient received 1 dose of cefadroxil 500 mg 12/26/2023 will hold further
-Consult wound care
-appreciate vascular surgery consult - NPO after MN for angiogram on 12/29
-no surgical treatment recommended by Podiatry
-heel protector boots while in bed
#Indeterminate 5 mm Pulmonary nodule right middle lobe incidental found on CT angiogram of chest and abdomen
-Follow-up outpatient with pulmonary for monitoring
#ESRD dialysis Friday
#Right upper chest wall dialysis catheter new 1 placed 3 days ago per patient on 12/25/2023
#Attempt to put AV fistula right forearm causing nerve damage to left hand with limited opening and grasp
-appreciate Nephrology
-HD today
d/ with nephro
#Anemia of chronic disease
trend hgb.
#CAD/NSTEMI per any chart
-Continue aspirin, statin 40 mg daily, Plavix, metoprolol succinate 25 mg daily
#DM2/diabetic retinopathy
Accu-Cheks with SSI, check HgbA1c
# HTN
BP 106/70
-Continue midodrine 5 mg twice daily
#HLD
Check lipid profile
No reported meds
#Chronic CHF unknown type
I/O, daily weights
-Continue Lasix 80 mg Friday
-Continue Entresto twice daily
#Carotid stenosis
-Continue aspirin, Plavix, statin
#Nonrheumatic aortic valve stenosis
#Hyperparathyroidism
#Chronic ambulatory dysfunction
PT/OT/telehealth case manager consult
#Insomnia
-Continue trazodone 25 mg at bedtime
Vertigo
hearing impaired left
DVT prophylaxis
DNR per patient and [facility] chart
d/w with vascular and nephro
Anticipated Discharge: > 48 hours
Subjective/Interval History
-
Date of Service: December 29, 2023
denies leg pain
complete breakfast
Objective Data
-
Labs:
Laboratory Results
12/29/23
08:21
WBC 5.9
Hgb 12.8
Hct 41.0
Plt Count 227
Sodium 136
Potassium 4.5
Chloride 96 L
Carbon Dioxide 20 L
Vital Signs:
Vital Signs
Temp Pulse Resp BP Pulse Ox
98.6 F 81 17 106/58 98
12/29/23 08:01 12/29/23 08:01 12/29/23 08:01 12/29/23 08:01 12/29/23 08:01
I&O
12/28/23 12/29/23 12/30/23
06:59 06:59 06:59
Intake Total 420 / 420
Balance 420 / 420
Physical Exam
-
General: No Apparent Distress, Comfortable and Conversant
HEENT: Other (R chest wall HD catheter noted )
Respiratory: Clear to Auscultation; Negative Wheezes
Cardiac: Regular Rhythm and S1/S2
GI: Soft, Nontender, Nondistended and Normal Bowel Sounds
Musculoskeletal: No Edema and Other (right foot with necrotic appearing 5th digit with scab; bilateral heel wounds)
Skin: Warm and Dry; Negative Rash
Neuro: Awake and AO x 3
Psych: Calm
Data Reviewed
-
Total Time Spent with Patient (in minutes): 55
[2023-12-29] MEDS: NOVOLOG FLEXPEN-LOW RESISTANCE 1 UNITS SC (13:45)
--- NOTE | 2023-12-29 14:46 | W.PN.NEPH.HD ---
Assessment
-
pt seen during HD
vitals stable
for Angio tomorrow
CVC functions well
non functioning AVF US done, no thrill noted -vasc follows
Progress Note - Hemodialysis
-
Date of Service: December 29, 2023
Duration: 30 minutes and 3 hours
Potassium Bath: 3
Calcium Bath: 2.5
Opti-Dialyzer: 160
Ultrafiltration: Other (2kg)
Blood Flow: 400
Dialysate Flow: 600
Heparin: yesx2
EPO: no
[2023-12-29 15:04] VITALS: BMI 18.7
[2023-12-29 15:09] VITALS: BP 146/69
[2023-12-29] MEDS: HEPARIN 3600 UNITS INTRACATH (15:57)
--- NOTE | 2023-12-29 16:29 | WOUNDNOTE ---
R ARM OLD FISTULA SITE
--- NOTE | 2023-12-29 16:31 | WOUNDNOTE ---
R 5TH TOE AND GREAT TOE
--- NOTE | 2023-12-29 16:34 | WOUNDNOTE ---
[facility] RN note: Patient admitted with arterial stenosis, PAD to feet.
See H&P for complete history.
PMH: NIDDM, PAD,HTN,Anxiety, RF-dialysis.
Wound Location and type/assessment: Patient admitted with: Dry intact eschar to R great toe tip and dorsal 5th toe. L great toe tip with small area of eschar, both heels with cracked fissures and intact eschar. All wounds related to PAD and DM.
Patient reports wounds painful to touch. Non palpable pedal pulses, skin warm and dry, arterial study pending. For angiogram tomorrow, vascular following. Dr. Lopez on consult, per note- stable eschar no surgical debridement necessary, signed off. R
arm old fistula site with small shallow opening, no undermining or tunneling. Raised pink wound proximally, easily bleeds upon cleaning. L arm with healing skin tear. Patient currently getting dialysis, nurse confirms that sacrum is intact.
Appetite: NPO
Pressure redistribution devices in place: On Accumax able to turn self. Pillow under calves, offloading heel. Patient reports offloading heel boots too uncomfortable. Has air chair cushion, can put on pillow under calves.
Plan: Arm dressings changed, adaptic and silicone foam. Painted eschar on toes with Betadine, piece of alginate btw 4-5th toe web. Foam adhesives changed on heels. Will confirm orders with hospitalist and updated nurse.
Updated care plan and will follow as needed.
Note to case management of equipment requested for discharge:
Recommend follow up at wound care center upon discharge.
[2023-12-29 16:48] LABS: Glucose - Point of Care 88 mg/dl (70-99)
[2023-12-29] MEDS: NOVOLOG FLEXPEN-LOW RESISTANCE SC (17:02)
[2023-12-29 21:19] LABS: Glucose - Point of Care 227 mg/dl (70-99)
[2023-12-29] MEDS: DESYREL 25 MG PO (21:48)
[2023-12-29 23:05] VITALS: BP 117/62
[2023-12-30] VITALS (13 sets, daily range): BP systolic 108–144; BP diastolic 45–73; BMI 17.6
--- NOTE | 2023-12-30 07:33 | W.SUR.PREOP ---
Pre-Operative Surgical Note
-
I have examined this patient prior to the performance of the scheduled procedure.
The patient's condition is unchanged from the time of the current History and
Physical and the patient is able to undergo the scheduled procedure.
[2023-12-30 07:53] LABS: Glucose - Point of Care 125 mg/dl (70-99)
[2023-12-30] MEDS: PLAVIX PO (08:00)
[2023-12-30] MEDS: LOW STRENGTH ASPIRIN PO (08:00)
[2023-12-30] MEDS: ENTRESTO 24 MG/26 MG PO (08:00)
[2023-12-30] MEDS: COLACE PO (08:00)
[2023-12-30] MEDS: FEOSOL PO (08:00)
[2023-12-30] MEDS: VITAMIN D3 (cholecalciferol) PO (08:00)
[2023-12-30] MEDS: TOPROL XL PO (08:00)
[2023-12-30] MEDS: CRESTOR PO (08:00)
[2023-12-30] MEDS: HEPARIN SC (08:00)
[2023-12-30 08:57] LABS: Hemoglobin 11.4 g/dL (12.0-16.0); Mean Corp Hgb Conc. 32.6 g/dL (33.0-37.0); Mean Corpuscular Hgb 31.7 pg (27.0-31.0); Mean Corpuscular Volume 97.2 fL (81.0-99.0); Mean Platelet Volume 10.9 fL (7.4-10.4); Platelet Count 189 10^3/uL (130-400); Red Cell Dist. Width 14.9 % (11.5-14.5); White Blood Cell Count 5.3 10^3/uL (4.8-10.8)
[2023-12-30 09:27] LABS: Blood Urea Nitrogen 26 mg/dl (7-17); Calcium 7.9 mg/dl (8.4-10.2); Carbon Dioxide 23 mmol/L (22-30); Chloride 102 mmol/L (98-107); Estimated Creatinine Clearance 12 ml/min; Glucose 131 mg/dl (70-99); Potassium 3.5 mmol/L (3.5-5.1); Sodium 139 mmol/L (135-145); eGFR 17.08
--- NOTE | 2023-12-30 10:39 | W.IMMPOSTOP ---
Surgical Immed Post Op Note
-
Primary Surgeon: Dr. Magdi Barone III, MD
Assisting Surgeon: Alessio Birmingham MD, PhD (PGY-2)
Pre-op Diagnosis: RLE peripheral arterial occlusive disease with critical limb threatening ischemia
Post-op Diagnosis: RLE peripheral arterial occlusive disease with critical limb threatening ischemia
Procedure Performed: Diagnostic arteriogram, drug coated balloon angioplasty, balloon angioplasty with intravascular lithotripsy of the right AT artery, javelin intravascular lithotripsy of the SFA and popliteal arteries, stent placement in right
SFA and popliteal artery
Anesthesia Type: Sedation
Specimen / Cultures: None
Estimated Blood Loss: Minimal
Complications: None
Operative Findings: The patinet was brought to the OR and placed in the supine position. The patient was prepped in usual sterile fashion. Fluoroscopy was used to identify the inferior and superior margins of the femoral head, this was marked at
the skin level. Ultrasound guidance was used to identify the L [employer]. Local anesthesia was applied to the puncture site. Micropuncture kit was used to access the L [employer]. This was upsized to a 5Fr sheath over a bentson wire. A luis's hook catheter
was advanced over a guidewire into the abdominal aorta. Diagnostic arteriogram showed tortuous iliac vessels and relatively patent iliofemoral system bilaterally. The glidewire was used to select the contralateral femoral system and a quickcross
catheter was used to cross to the R femoral artery. Arteriogram showed disease of the profunda and SFA, and popliteal artery. Distally, there was single vessel run off of the AT artery, with proximal disease. A wire was used to access the SFA and
popliteal artery segments. Javelin IVL was performed to open up the SFA-popliteal artery segments. We then placed bare metal stents from the SFA to popliteal artery. Post stent delivery, balloon angioplasty was performed to profile the stents. We
then gained access to the right AT artery. Balloon angioplasty was performed of the right AT artery with intravascular lithotripsy. At the completion of the case, completion arteriogram showed continued profunda disease, improved inflow to SFA. The
stents in the SFA and popliteal artery were patent with improved flow through these segments as well as the AT artery. The wires and sheaths were removed. The patient had a palpable dorsalis pedis on the right foot, no palpable or doppler detected
pulse at the right PT. On the left side, there was a dopplerable left DP/distal AT with no PT signal noted. Mechanical compression was performed for hemostasis, with some oozing noted from the puncture site. This was extended for additional time.
The patient was transferred to the PACU in stable condition.
[2023-12-30 11:13] LABS: Glucose - Point of Care 125 mg/dl (70-99)
--- NOTE | 2023-12-30 11:34 | OR.RPT ---
Operative Report
Operative Report
Date of Operation: 12/30/2023
Pre Op Diagnosis: Chronic limb threatening ischemia of the bilateral lower extremities
Post Op Diagnosis: Chronic limb threatening ischemia of the bilateral lower extremities
Procedure:
1.) Intravascular lithotripsy to right superficial femoral artery/popliteal artery using Shockwave Javelin catheter
2.) Drug-coated balloon angioplasty of right superficial femoral artery and popliteal artery (5 mm x 300 mm Lutonix)
3.) Balloon angioplasty and stenting of right superficial femoral artery and popliteal artery using overlapping LifeStents: 6 mm x 60 mm distal; 6 mm x 80 mm; 6 mm x 150 mm; 6 mm x 40 mm proximal)
4.) Intravascular lithotripsy to right anterior tibial artery stenosis (3 mm x 80 mm E8 shockwave balloon)
5.) Diagnostic aortobiiliac arteriogram
6.) Diagnostic BILATERAL lower extremity arteriogram
7.) Ultrasound-guided percutaneous access to the left common femoral artery
Surgeon: Magdi Barone III, MD
Jewelry Inspector: Alessio Birmingham MD PhD, PGY2
Anesthesia: Sedation with local
Fluoroscopy:
48.3 min
118 mGy
22.13 Gy.cm2
Complications: None
Estimated Blood Loss: Less than 20 cc
History and Indications for Procedure: 73-year-old female with end-stage renal disease requiring hemodialysis and chronic limb threatening ischemia of the bilateral lower extremities manifested by rest pain and tissue loss
Procedure in Detail: Chelo Lemos was correctly identified and placed supine on the operating table. After adequate induction of anesthesia the bilateral groins were prepped and draped in the usual sterile fashion. A timeout was performed with the
nursing and anesthesia staff confirming the patient's identity as well as the nature and laterality of the procedure.
The left common femoral artery was identified under ultrasound guidance. The artery was patent. The superior and inferior aspects of the femoral head were identified with radiographic guidance and marked at the skin level. The proposed puncture site
was infiltrated with local anesthesia. Under ultrasound guidance we accessed the left common femoral artery with a micropuncture needle and upsized to a 5 Fr sheath over a [employer] wire. The wire and a Shepherds hook flush catheter were advanced into
the distal abdominal aorta and a diagnostic aorto-biiliac arteriogram was performed:
AORTO-ILIAC ARTERIOGRAM:
Aorta: Patent with no significant stenosis identified
Right common iliac artery: Patent. Lateral wall irregularity identified but no significant stenosis identified
Right external iliac artery: Patent with no significant stenosis identified
Left common iliac artery: Patent with no significant stenosis identified
Left external iliac artery: Patent with no significant stenosis identified
Under roadmap guidance using a Glidewire and the Shepherds hook catheter we selected the right common iliac artery and then the external iliac artery. A catheter was tracked up and over the aortic bifurcation and placed in the distal external iliac
artery. A diagnostic right lower extremity arteriogram was then performed which demonstrated the following:
RIGHT LOWER EXTREMITY:
Common femoral artery: Patent with no significant stenosis identified
Profunda femoral artery: Patent but severely diseased with areas of high-grade stenosis and focal segmental occlusion identified in the main profunda branches
Superficial femoral artery: Patent stump proximally but occluded thereafter
Popliteal artery: Reconstitutes above the knee. Patent with areas of high-grade stenosis behind the knee. Small diameter below the knee but patent
Anterior tibial artery: Patent. Proximal artery diffusely diseased with areas of high-grade stenosis. Mid to distal artery patent and continues across the ankle to form the dorsalis pedis artery.
Tibioperoneal trunk: Patent stump but occludes after that
Peroneal artery: Occluded
Posterior tibial artery: Occluded with no distal reconstitution identified
ENDOVASCULAR INTERVENTION: Systemic heparin was administered. Exchanged out for a 6 Fr 45 cm sheath over a Storq wire. Selected the superficial femoral artery under roadmap guidance with Quickcross catheter and glidewire. Attempted to cross the
occluded segment but could not advance the quick cross catheter beyond the mid SFA. Exchanged out for a [place] ST 0.014 wire. Due to the calcified nature of the plaque and inability to cross the lesion I elected to use the Shockwave Javelin
lithotripsy catheter in an effort to cross. Over the 0.014 wire I advanced the Javelin catheter to the point of occlusion. While gently advancing forward over the 0.014 wire lithotripsy pulses were delivered. Using this approach I was able to
successfully cross the SFA occlusion. I also used the Javelin catheter to deliver lithotripsy pulses to the high-grade stenosis in the popliteal artery behind the knee. All 120 pulses were delivered across the SFA/pop disease. Subsequent
arteriogram demonstrated an improved result with a clear flow lumen identified through the superficial femoral artery and popliteal artery. I then used a 4 mm angioplasty balloon to treat the entire segment of superficial femoral artery/popliteal
artery disease. Following this I brought into position a long 5 mm x 30 cm Lutonix drug-coated angioplasty balloon. This was placed across the SFA/popliteal artery disease under roadmap guidance. The balloon was inflated to nominal pressure, held
in place for 3 minutes and then slowly deflated and removed over the wire. Subsequent arteriogram demonstrated a significantly improved result but suboptimal with scattered areas of dissection and residual stenosis identified. I therefore treated
the popliteal artery and superficial femoral artery disease with several overlapping 6 mm LifeStents as detailed above. Each of the stents was positioned in the desired location and deployed under roadmap guidance. Following deployment of the
stents I profiled the entire length with a 5 mm angioplasty balloon. Subsequent arteriogram demonstrated an excellent technical result with widely patent superficial femoral artery and popliteal artery stents and no significant residual stenosis
identified.
I then focused my attention on the anterior tibial artery disease. The anterior tibial artery was selected with a Glidewire and Quickcross catheter. The wire and catheter were advanced to the mid anterior tibial artery and subtraction angio
confirmed proper position in the true lumen. Exchanged out for a [place] ST 0.014 wire. Due to the heavily calcified nature of the arterial disease and in an effort to modify the calcium to achieve maximum luminal gain with endovascular intervention
I elected to proceed with intravascular lithotripsy. A 3 mm x 80 mm E8 shockwave balloon was placed across the stenosis under roadmap guidance. Alternating rounds of lithotripsy pulse delivery at sub-nominal pressure and angioplasty at nominal
pressure was performed across the stenosis. In between rounds of pulse delivery and angioplasty the balloon was deflated and repositioned under roadmap guidance. All 400 pulses to the anterior tibial artery stenosis were delivered.
COMPLETION ARTERIOGRAM: Excellent technical result. Widely patent superficial femoral artery and popliteal artery stents with no significant residual stenosis identified. Robust and widely patent anterior tibial artery which continued across the
ankle and into the foot deform the dorsalis pedis artery with no residual stenosis identified. Flow to the forefoot and toes was demonstrated on completion imaging and was significantly improved compared to pretreatment however once again
identified was severe small vessel disease in the plantar distribution with little flow identified to the ER
Satisfied with this result we concluded the procedure. The sheath tip was pulled back into the left external iliac artery. A runoff arteriogram of the left lower extremity was performed.
LEFT LOWER EXTREMITY:
Common femoral artery: Patent with no significant stenosis identified
Profunda femoral artery: Patent. Scattered areas of high-grade stenosis identified
Superficial femoral artery: Patent proximally but occluded thereafter. No distal reconstitution.
Popliteal artery: Occluded above the knee. Reconstitutes below the knee, very diseased
Anterior tibial artery: Occluded proximally but reconstitutes. Lone tibial artery runoff distally.
Tibioperoneal trunk: Occluded
Peroneal artery: Occluded
Posterior tibial artery: Occluded
Protamine was administered. The sheath was pulled and direct manual pressure was held over the puncture site. Hemostasis was achieved. A sterile dressing was applied. The patient tolerated the procedure well and was taken to the recovery area in
stable condition.
Attestation: I was present and responsible for the entire procedure.
Signed:
Magdi Barone III, MD
[facility] Vascular Surgery
[phone] (lqiz)
--- NOTE | 2023-12-30 12:25 | W.PN.HOSP.TC ---
Today's Communication/Plan
-
HD tomm regular schedule
Vascular recs
post op bedrest
Assessment / Plan
Assessment / Plan
Patient is a 73y F with PMH significant for ASCVD, ESRD on HD and DM-II who was sent to the ED from local [place] for evaluation of R foot discoloration.
#Nonhealing right fifth toe gangrene secondary to arterial stenosis/PVD
#Right heel scab
-Outpatient arterial Doppler 12/27/2023 showing arterial stenosis per [place] report scanned into computer
-Patient received 1 dose of cefadroxil 500 mg 12/26/2023 will hold further
-Consult wound care
-s/p RLE angiogram -Diagnostic arteriogram, drug coated balloon angioplasty, balloon angioplasty with intravascular lithotripsy of the right AT artery, javelin intravascular lithotripsy of the SFA and popliteal arteries, stent placement in right SFA
and popliteal artery
-no surgical treatment recommended by Podiatry
-heel protector boots while in bed
-Per pt, she will need to undergo for LLE angiogram too. Awaiting to hear from vascular surgery.
#Indeterminate 5 mm Pulmonary nodule right middle lobe incidental found on CT angiogram of chest and abdomen
-Follow-up outpatient with pulmonary for monitoring
#ESRD dialysis Friday
#Right upper chest wall dialysis catheter new 1 placed 3 days ago per patient on 12/25/2023
#Attempt to put AV fistula right forearm causing nerve damage to left hand with limited opening and grasp
-appreciate Nephrology
-HD tomm
#Anemia of chronic disease
trend hgb.
#CAD/NSTEMI per any chart
-Continue aspirin, statin 40 mg daily, Plavix, metoprolol succinate 25 mg daily
#DM2/diabetic retinopathy
Accu-Cheks with SSI, check HgbA1c
# HTN
BP 120/64
-Continue metoprolol
#HLD
cont crestor 10mg as based on CrCl
#Chronic CHF unknown type
I/O, daily weights
-Continue Lasix 80 mg Friday
-Continue Entresto twice daily
#Carotid stenosis
-Continue aspirin, Plavix, statin
#Nonrheumatic aortic valve stenosis
#Hyperparathyroidism
#Chronic ambulatory dysfunction
PT/OT/case management social worker consult
#Insomnia
-Continue trazodone 25 mg at bedtime
Vertigo
hearing impaired left
DVT prophylaxis-hep sc
DNR per patient and [facility] chart
d/w with vascular and nephro
Anticipated Discharge: 24 - 48 hours
Subjective/Interval History
-
Date of Service: December 30, 2023
seen post procedure
resting in bed
no groin pain
Objective Data
-
Labs:
Laboratory Results
12/30/23
08:36
WBC 5.3
Hgb 11.4 L
Hct 35.0 L
Plt Count 189
Sodium 139
Potassium 3.5
Chloride 102
Carbon Dioxide 23
BUN 26 H
Creatinine 2.8 H
Glucose 131 H
Calcium 7.9 L
Vital Signs:
Vital Signs
Temp Pulse Resp BP Pulse Ox
97.2 F 71 13 108/58 96
12/30/23 11:02 12/30/23 11:30 12/30/23 11:30 12/30/23 11:30 12/30/23 11:47
I&O
12/29/23 12/30/23 12/31/23
06:59 06:59 06:59
Intake Total 420 / 420 780 / 780
Output Total 0 / 0
Balance 420 / 420 780 / 780
Physical Exam
-
General: No Apparent Distress, Comfortable and Conversant
HEENT: Other (R chest wall HD catheter noted )
Respiratory: Clear to Auscultation; Negative Wheezes
Cardiac: Regular Rhythm and S1/S2
GI: Soft, Nontender, Nondistended and Normal Bowel Sounds
Musculoskeletal: No Edema and Other (right foot with necrotic appearing 5th digit with scab; bilateral heel wounds)
Skin: Warm and Dry; Negative Rash
Neuro: Awake and AO x 3
Psych: Calm
--- NOTE | 2023-12-30 12:29 | PTCARENOTE ---
patient arrived to unit, post procedure. VSS. Patient AAOx4. dressing to L groin intact with scant drainage. call huerta in reach. safety maintained.
[2023-12-30] MEDS: LASIX PO (12:44)
[2023-12-30] MEDS: NOVOLOG FLEXPEN-LOW RESISTANCE SC ×3 (12:45→17:07)
[2023-12-30] MEDS: ProAmatine PO (13:38)
--- NOTE | 2023-12-30 15:00 | CM ---
CM reviewed chart, for OR today. Patient sleeping bedside, patient for HD tomorrow. Patient LTC resident at [facility]. CM will continue to follow for all discharge planning needs.
Plan; return to [facility] when stable
[facility]
Report [phone]
--- NOTE | 2023-12-30 15:56 | W.PN.NEPH.PH ---
Today's Communication / Plan
-
HD tomorrow
Assessment/Plan
-
Assessment
ESRD
Hypotension
Heart failure reduced ejection fraction
Diabetes mellitus type 2
Nephrolithiasis, staghorn calculus
Severe atherosclerotic vascular disease
Coronary artery disease
Nonhealing right foot wound
Metabolic acidosis
Anemia
Plan:
HD tomorrow
s/p Angioplasty of LEs today
PHYLICIA on dialysis
significantly elevated fe sat-need f/u out pt
Continue midodrine
right UE AVF ligated per US report
-
-
Date of Service: December 30, 2023
CC / HPI / ROS
-
Chief Complaint:
ESRD
History of Present Illness:
hb stable at 11.4
BP stable
no fever
Review of Systems:
no cp or sob at rest =supine on bed
no n/v
LE pain fair control
Labs
-
Labs:
WBC 5.3 10^3/uL (4.8-10.8) 12/30/23 08:36
RBC 3.60 10^6/uL (4.20-5.40) L 12/30/23 08:36
Hgb 11.4 g/dL (12.0-16.0) L 12/30/23 08:36
Hct 35.0 % (37.0-47.0) L 12/30/23 08:36
Plt Count 189 10^3/uL (130-400) 12/30/23 08:36
Sodium 139 mmol/L (135-145) 12/30/23 08:36
Potassium 3.5 mmol/L (3.5-5.1) 12/30/23 08:36
Chloride 102 mmol/L (98-107) 12/30/23 08:36
Carbon Dioxide 23 mmol/L (22-30) 12/30/23 08:36
BUN 26 mg/dl (7-17) H 12/30/23 08:36
Creatinine 2.8 mg/dL (0.6-1.0) H 12/30/23 08:36
eGFR 17.08 12/30/23 08:36
Glucose 131 mg/dl (70-99) H 12/30/23 08:36
Calcium 7.9 mg/dl (8.4-10.2) L 12/30/23 08:36
Albumin 3.5 g/dl (3.5-5.0) 12/28/23 05:37
Physical Exam
-
Vital Signs:
Vital Signs
Temp Pulse Resp BP Pulse Ox
97.4 F 76 17 132/70 96
12/30/23 15:24 12/30/23 15:24 12/30/23 15:24 12/30/23 15:24 12/30/23 15:24
Cardiovascular:: Regular rate and rhythm
Respiratory:: Bilateral: CTA
Lung Excursion:: Normal
Abdomen:: Nontender and Soft
Extremity Edema:: None: Bilateral:
Barone Catheter: No
[2023-12-30] MEDS: LASIX 80 MG PO (17:00)
[2023-12-30] MEDS: ProAmatine 5 MG PO (17:04)
[2023-12-30 17:08] LABS: Glucose - Point of Care 122 mg/dl (70-99)
[2023-12-30] MEDS: ENTRESTO 24 MG/26 MG 1 TAB PO (19:32)
[2023-12-30] MEDS: HEPARIN 5000 UNITS SC (19:38)
[2023-12-30 21:26] LABS: Glucose - Point of Care 235 mg/dl (70-99)
[2023-12-30] MEDS: DESYREL 25 MG PO (21:28)
[2023-12-31 06:00] VITALS: BMI 18.4
[2023-12-31 07:00] VITALS: BP 140/63
[2023-12-31 07:27] LABS: Glucose - Point of Care 117 mg/dl (70-99)
[2023-12-31] MEDS: ProAmatine 5 MG PO ×2 (07:50→17:03)
[2023-12-31] MEDS: NOVOLOG FLEXPEN-LOW RESISTANCE SC ×3 (07:52→17:06)
[2023-12-31] MEDS: HEPARIN 5000 UNITS SC ×2 (07:52→20:00)
[2023-12-31 07:56] LABS: Hematocrit 35.3 % (37.0-47.0); Hemoglobin 10.9 g/dL (12.0-16.0); Mean Corp Hgb Conc. 30.9 g/dL (33.0-37.0); Mean Corpuscular Hgb 31.2 pg (27.0-31.0); Mean Corpuscular Volume 101.1 fL (81.0-99.0); Platelet Count 160 10^3/uL (130-400); Red Blood Cell Count 3.49 10^6/uL (4.20-5.40); Red Cell Dist. Width 15.3 % (11.5-14.5); White Blood Cell Count 6.7 10^3/uL (4.8-10.8)
[2023-12-31] MEDS: HEPARIN 500 UNITS IV ×2 (08:10→09:10)
[2023-12-31] MEDS: MANNITOL 25% 12.5 GRAMS IV ×2 (08:30→09:40)
[2023-12-31] MEDS: FLEXBUMIN 25% FOR HEMODIALYSIS 12.5 GRAMS IV ×2 (08:40→09:40)
--- NOTE | 2023-12-31 09:28 | W.PN.VS ---
Today's Communication / Plan
-
See below.
Assessment/Plan
-
Assessment: 73-year-old female POD #1 Intravascular lithotripsy to right superficial femoral artery/popliteal artery using Shockwave Javelin catheter, drug-coated balloon angioplasty of right superficial femoral artery and popliteal artery (5 mm x
300 mm Lutonix), balloon angioplasty and stenting of right superficial femoral artery and popliteal artery using overlapping LifeStents: 6 mm x 60 mm distal; 6 mm x 80 mm; 6 mm x 150 mm; 6 mm x 40 mm proximal), intravascular lithotripsy to right
anterior tibial artery stenosis (3 mm x 80 mm E8 shockwave balloon), diagnostic aortobiiliac arteriogram, diagnostic BILATERAL lower extremity arteriogram, ultrasound-guided percutaneous access to the left common femoral artery
Plan:
Given small hematoma remains present overlying artery, will obtain ultrasound immediately after patient is done hemodialysis to rule out pseudoaneurysm
Continue DAPT therapy of aspirin 81 mg p.o. daily and Plavix 75 mg p.o. daily
Continue local wound care
Will schedule patient in the outpatient setting for left lower extremity angio, instructions left in discharge paperwork
We will follow-up with ultrasound once obtained
Subjective Data
-
Date of Service: December 31, 2023
Patient seen and examined at bedside, offers no complaints. Currently on HD circuit via port. Denies nausea, vomiting, fever, and chills. Does endorse slight tenderness at left groin puncture site.
Objective Data
-
Vital Signs
Temp Pulse Resp BP Pulse Ox
98.5 F 98 16 140/63 96
12/30/23 23:05 12/30/23 23:05 12/30/23 23:05 12/31/23 07:50 12/30/23 23:05
Intake and Output
12/30/23 12/31/23 01/01/24
06:59 06:59 06:59
Intake Total 780 / 780 530 / 530
Output Total 0 / 0 0 / 0
Balance 780 / 780 530 / 530
Intake:
Oral fluids 780 / 780 480 / 480
IV fluids (Total) 50 / 50
normal saline 50 / 50
Output:
Urine, Voided 0 / 0 0 / 0
Other:
Number of approximated MODERATE 1
amounts of urine
Lab Results
12/31/23 07:03
Calcium 7.9 mg/dl (8.4-10.2) L 12/30/23 08:36
Total Bilirubin 0.2 mg/dl (0.2-1.3) 12/28/23 05:37
AST 19 U/L (14-36) 12/28/23 05:37
ALT 11 U/L (0-35) 12/28/23 05:37
Alkaline Phosphatase 63 U/L (38-126) 12/28/23 05:37
Total Protein 5.7 g/dl (6.3-8.2) L 12/28/23 05:37
Albumin 3.5 g/dl (3.5-5.0) 12/28/23 05:37
Physical Exam
-
No apparent distress, resting in bed comfortably
No tachycardia
No dyspnea on room air
ABD flat, nontender, nondistended
Left groin puncture site CDI, small area of ecchymosis, scant hematoma palpable, all surrounding compartments soft
Bilateral DP by Doppler, right PT by Doppler, bilateral feet warm
[2023-12-31 10:11] LABS: Blood Urea Nitrogen 38 mg/dl (7-17); Calcium 8.8 mg/dl (8.4-10.2); Carbon Dioxide 22 mmol/L (22-30); Chloride 100 mmol/L (98-107); Estimated Creatinine Clearance 8 ml/min; Glucose 98 mg/dl (70-99); Potassium 4.2 mmol/L (3.5-5.1); Sodium 135 mmol/L (135-145)
--- NOTE | 2023-12-31 10:22 | W.PN.NEPH.HD ---
Assessment
-
Seen on HD. no complaints. VSS, access ok
no complaints referable to leg
Progress Note - Hemodialysis
-
Date of Service: December 31, 2023
Duration: 30 minutes and 3 hours
Potassium Bath: 3
Calcium Bath: 2.5
Opti-Dialyzer: 160
Ultrafiltration: Other (2kg)
Blood Flow: 400
Dialysate Flow: 600
Heparin: 500x2
EPO: 0
--- NOTE | 2023-12-31 10:46 | CM ---
Addendum entered by Britta Martin 12/31/23 15:04:
Belia/liaison for [facility] updated re d/c cancelled.
Addendum entered by Britta Martin 12/31/23 11:57:
IMM signed and added to chart.
Ambulance transport 12:30 pm, Belia from [facility] updated.
Original Note:
Patient seen bedside on HD.
HD via tunneled cath.
Plan: Back to [facility] when stable
[facility]
Report [phone]
--- NOTE | 2023-12-31 10:59 | W.PN.HOSP.TC ---
Addendum entered and electronically signed by Antione Winter MD 12/31/23 13:42:
Discussed with vascular surgery, patient with pseudoaneurysm and will need to be monitored overnight. Ultrasound guided bedside compression and if not successful patient will be going to the OR.
Original Note:
Today's Communication/Plan
-
DC pending US results
HD today
Assessment / Plan
Assessment / Plan
Patient is a 73y F with PMH significant for ASCVD, ESRD on HD and DM-II who was sent to the ED from local [place] for evaluation of R foot discoloration.
#Nonhealing right fifth toe gangrene secondary to arterial stenosis/PVD
#Right heel scab
-Outpatient arterial Doppler 12/27/2023 showing arterial stenosis per [place] report scanned into computer
-Patient received 1 dose of cefadroxil 500 mg 12/26/2023 will hold further
-Consult wound care
-s/p RLE angiogram -Diagnostic arteriogram, drug coated balloon angioplasty, balloon angioplasty with intravascular lithotripsy of the right AT artery, javelin intravascular lithotripsy of the SFA and popliteal arteries, stent placement in right SFA
and popliteal artery
-no surgical treatment recommended by Podiatry
-heel protector boots while in bed. Cont with DAPT.
-Plan for OP LLE angiogram. Pt to under LLE US to r/o pseudoaneurysm
#Indeterminate 5 mm Pulmonary nodule right middle lobe incidental found on CT angiogram of chest and abdomen
-Follow-up outpatient with pulmonary for monitoring
#ESRD dialysis Friday
#Right upper chest wall dialysis catheter new 1 placed 3 days ago per patient on 12/25/2023
#Attempt to put AV fistula right forearm causing nerve damage to left hand with limited opening and grasp
-appreciate Nephrology
-HD today
#Anemia of chronic disease
trend hgb.
#CAD/NSTEMI per any chart
-Continue aspirin, statin 40 mg daily, Plavix, metoprolol succinate 25 mg daily
#DM2/diabetic retinopathy
Accu-Cheks with SSI,
# HTN
-Continue metoprolol and volume removal via HD should help.
#HLD
cont crestor 10mg as based on CrCl
#Chronic CHF unknown type
I/O, daily weights
-Continue Lasix 80 mg Friday
-Continue Entresto twice daily
#Carotid stenosis
-Continue aspirin, Plavix, statin
#Nonrheumatic aortic valve stenosis
#Hyperparathyroidism
#Chronic ambulatory dysfunction
PT/OT/bilingual case manager consult
#Insomnia
-Continue trazodone 25 mg at bedtime
Vertigo
hearing impaired left
DVT prophylaxis-hep sc
DNR per patient and assisted chart
d/w with vascular
Dispo-tentative dc later today pending US results.
Anticipated Discharge: Today
Subjective/Interval History
-
Date of Service: December 31, 2023
undergoing HD
denies leg pain
Objective Data
-
Labs:
Laboratory Results
12/31/23
07:03
WBC 6.7
Hgb 10.9 L
Hct 35.3 L
Plt Count 160
Sodium 135
Potassium 4.2
Chloride 100
Carbon Dioxide 22
BUN 38 H
Creatinine 4.2 H*
Glucose 98
Calcium 8.8
Vital Signs:
Vital Signs
Temp Pulse Resp BP Pulse Ox
98.6 F 96 21 140/63 98
12/31/23 07:00 12/31/23 07:00 12/31/23 07:00 12/31/23 07:50 12/31/23 07:00
I&O
12/30/23 12/31/23 01/01/24
06:59 06:59 06:59
Intake Total 780 / 780 530 / 530
Output Total 0 / 0 0 / 0
Balance 780 / 780 530 / 530
Physical Exam
-
General: No Apparent Distress, Comfortable and Conversant
HEENT: Other (R chest wall HD catheter noted )
Respiratory: Clear to Auscultation; Negative Wheezes
Cardiac: Regular Rhythm and S1/S2
GI: Soft, Nontender, Nondistended and Normal Bowel Sounds
Musculoskeletal: No Edema and Other (right foot with necrotic appearing 5th digit with scab; bilateral heel wounds)
Skin: Warm and Dry; Negative Rash
Neuro: Awake and AO x 3
Psych: Calm
[2023-12-31] MEDS: HEPARIN 4200 UNITS INTRACATH (11:30)
[2023-12-31 11:44] LABS: Glucose - Point of Care 97 mg/dl (70-99)
[2023-12-31] MEDS: TOPROL XL 25 MG PO (12:06)
[2023-12-31] MEDS: CRESTOR 10 MG PO (12:06)
[2023-12-31] MEDS: ENTRESTO 24 MG/26 MG 1 TAB PO ×2 (12:06→22:12)
[2023-12-31] MEDS: PLAVIX 75 MG PO (12:08)
[2023-12-31] MEDS: VITAMIN D3 (cholecalciferol) 25 MCG PO (12:08)
[2023-12-31] MEDS: LOW STRENGTH ASPIRIN 81 MG PO (12:09)
[2023-12-31] MEDS: COLACE 100 MG PO (12:09)
[2023-12-31] MEDS: FEOSOL 325 MG PO (12:09)
--- NOTE | 2023-12-31 13:17 | W.PN.UPDATE ---
Update Note
Progress Note Update
Left ultrasound of groin demonstrates small pseudoaneurysm, spoke to on-call IR physician who states pseudoaneurysm is too small for injection. Will attempt manual compression via the guidance of ultrasound to rectify pseudoaneurysm, if not
successful will likely need to take patient to OR.
[2023-12-31 15:15] VITALS: BP 132/68
--- NOTE | 2023-12-31 16:13 | W.PN.UPDATE ---
Update Note
Progress Note Update
Unable to thrombosis small pseudoaneurysm via ultrasound guidance compression, will continue to observe patient overnight and reassess in morning. Reviewed HPI, physical exam, and ultrasound results with attending Dr. Magdi Barone who agrees with
plan. Updated hospitalist.
--- NOTE | 2023-12-31 16:18 | W.PN.UPDATE ---
Update Note
Progress Note Update
Patient has a small left femoral artery pseudoaneurysm. Failed US guided compression earlier today and has persistent pseudoaneurysm. Will reevaluate in the a.m. and potentially attempt US guided thrombin injection.
Magdi Barone III, MD
[facility] Vascular Surgery
[phone] (goxw)
[2023-12-31 16:57] LABS: Glucose - Point of Care 125 mg/dl (70-99)
[2023-12-31 21:35] LABS: Glucose - Point of Care 294 mg/dl (70-99)
[2023-12-31 22:15] VITALS: BP 110/67
[2023-12-31] MEDS: DESYREL 25 MG PO (22:16)
[2024-01-01] VITALS (7 sets, daily range): BP systolic 101–149; BP diastolic 66–73; BMI 18.9
[2024-01-01] MEDS: TYLENOL 650 MG PO (00:28)
[2024-01-01 08:34] LABS: Glucose - Point of Care 144 mg/dl (70-99)
--- NOTE | 2024-01-01 09:21 | W.SUR.POST ---
Surgical Immediate Post Op
Note
Pre Op Diagnosis: PSA left groin
Post Op Diagnosis: same
Procedure Performed: Injection of left groin PSA with thrombin
Primary Surgeon: Lizabeth
Anesthesia: None
Estimated Blood Loss: 1cc
Fluids: None
Drains/Shunts: None
Specimens/Cultures: None
Doppler/Duplex/Angio (Y/N): Y
Complications: None
Operative Findings: Successful injection
--- NOTE | 2024-01-01 09:39 | OR.RPT ---
Operative Report
Operative Report
Date of Operation: 01/01/2024
Pre Op Diagnosis: Left femoral artery pseudoaneurysm
Post Op Diagnosis: Left femoral artery pseudoaneurysm
Procedure: Ultrasound-guided percutaneous thrombin injection to left femoral artery pseudoaneurysm
Surgeon: Magdi Barone III, MD
Anesthesia: Local
Complications: None
Estimated Blood Loss: Less than 2 cc
History and Indications for Procedure: 73-year-old female who underwent a right lower extremity arteriogram and endovascular intervention via left common femoral artery access. She developed a pseudoaneurysm postprocedure.
Procedure in Detail: Chelo Lemos was correctly identified in the operating room. She was positioned supine on a hospital stretcher in the OR. A timeout procedure was performed with the nursing staff confirming the patient's identity as well as the
nature and laterality of the procedure. The left groin was prepped in the usual sterile fashion. Ultrasound was used to identify the pseudoaneurysm location and [place] common femoral artery. Local anesthesia was infiltrated into the skin and
subcutaneous tissue overlying the proposed puncture site. Under direct ultrasound visualization a micropuncture needle was inserted directly into the mid pseudoaneurysm cavity. The needle position was confirmed under ultrasound guidance.
Color-flow was then turned on. 10 cc of a 100 units/mL concentration of thrombin was injected into the pseudoaneurysm cavity. There was cessation of color-flow within the pseudoaneurysm cavity. The needle was removed. Manual pressure was applied
to the puncture site. A sterile dressing was applied.
The patient tolerated the procedure well was taken to her room in stable condition.
Signed:
Magdi Barone III, MD
[facility] Vascular Surgery
[phone] (cell)
[2024-01-01] MEDS: NOVOLOG FLEXPEN-LOW RESISTANCE SC ×2 (10:41→18:12)
[2024-01-01] MEDS: VITAMIN D3 (cholecalciferol) 25 MCG PO (10:55)
[2024-01-01] MEDS: PLAVIX 75 MG PO (10:59)
[2024-01-01] MEDS: ENTRESTO 24 MG/26 MG 1 TAB PO ×2 (10:59→19:30)
[2024-01-01] MEDS: CRESTOR 10 MG PO (10:59)
[2024-01-01] MEDS: FEOSOL 325 MG PO (11:00)
[2024-01-01] MEDS: COLACE 100 MG PO (11:00)
[2024-01-01] MEDS: TOPROL XL 25 MG PO (11:00)
[2024-01-01] MEDS: HEPARIN 5000 UNITS SC ×2 (11:01→19:30)
[2024-01-01] MEDS: LOW STRENGTH ASPIRIN 81 MG PO (11:06)
[2024-01-01] MEDS: ProAmatine 5 MG PO ×2 (11:09→18:17)
[2024-01-01] MEDS: LASIX 80 MG PO ×2 (11:09→18:17)
--- NOTE | 2024-01-01 11:09 | CM ---
CM received update from nurse yesterday evening regarding family requesting call for discharge planning. Patient seen bedside, reports she is comfortable returning to [facility]. CM placed call to patients daughter, Riya. Per daughter,
patient is not a LTC resident at [facility], prior to coming to hospital, patient was close to discharging home from rehab. Daughter reports patients plan after rehab is to continue outpatient dialysis at [facility], patient utilizes
Transport. Daughter reports they have been [facility], to try to get patient moved to [facility] as it is closer to patients home/family. Daughter reports [facility] has been unable to accept as they were told
patient is LTC at . Daughter would prefer patient go to rehab at [facility] and return home after rehab with outpatient dialysis. Phone call to Belia at to confirm patient LTC resident or STR. CM will continue to follow for all discharge planning
needs.
Plan; confirming patient LTC versus STR, family would like referral to [facility] for STR.
--- NOTE | 2024-01-01 11:33 | W.PN.NEPH.PH ---
Today's Communication / Plan
-
HD tomorrow
Assessment/Plan
-
Assessment
ESRD
Hypotension
Heart failure reduced ejection fraction
Diabetes mellitus type 2
Nephrolithiasis, staghorn calculus
Severe atherosclerotic vascular disease
Coronary artery disease
Nonhealing right foot wound
Metabolic acidosis
Anemia
Plan:
HD tomorrow
PHYLICIA on dialysis
Continue midodrine
right UE AVF ligated per US report
-
-
Date of Service: January 01, 2024
CC / HPI / ROS
-
Chief Complaint:
ESRD
History of Present Illness:
hb stable
BP stable
no fever
s/p eft fem art pseudoaneurysm thrombin injection
Review of Systems:
no cp or sob at rest =supine on bed
no n/v
LE pain fair control
Labs
-
Labs:
WBC 6.7 10^3/uL (4.8-10.8) 12/31/23 07:03
RBC 3.49 10^6/uL (4.20-5.40) L 12/31/23 07:03
Hgb 10.9 g/dL (12.0-16.0) L 12/31/23 07:03
Hct 35.3 % (37.0-47.0) L 12/31/23 07:03
Plt Count 160 10^3/uL (130-400) 12/31/23 07:03
Sodium 135 mmol/L (135-145) 12/31/23 07:03
Potassium 4.2 mmol/L (3.5-5.1) 12/31/23 07:03
Chloride 100 mmol/L (98-107) 12/31/23 07:03
Carbon Dioxide 22 mmol/L (22-30) 12/31/23 07:03
BUN 38 mg/dl (7-17) H 12/31/23 07:03
Creatinine 4.2 mg/dL (0.6-1.0) H* 12/31/23 07:03
eGFR 10.50 12/31/23 07:03
Glucose 98 mg/dl (70-99) 12/31/23 07:03
Calcium 8.8 mg/dl (8.4-10.2) 12/31/23 07:03
Albumin 3.5 g/dl (3.5-5.0) 12/28/23 05:37
Physical Exam
-
Vital Signs:
Vital Signs
Temp Pulse Resp BP Pulse Ox
98.6 F 107 18 110/67 96
12/31/23 22:15 12/31/23 22:15 12/31/23 22:15 12/31/23 22:15 12/31/23 22:15
Cardiovascular:: Regular rate and rhythm
Respiratory:: Bilateral: Coarse
Lung Excursion:: Normal
Abdomen:: Nontender and Soft
Bowel Sounds:: Normal
Extremity Edema:: None: Bilateral:
--- NOTE | 2024-01-01 12:33 | W.PN.HOSP.TC ---
Today's Communication/Plan
-
HD tomm
US groin in am (hopefully before HD)
Assessment / Plan
Assessment / Plan
Patient is a 73y F with PMH significant for ASCVD, ESRD on HD and DM-II who was sent to the ED from local [facility] for evaluation of R foot discoloration.
#Nonhealing right fifth toe gangrene secondary to arterial stenosis/PVD
#Right heel scab
-Outpatient arterial Doppler 12/27/2023 showing arterial stenosis per [facility] report scanned into computer
-Patient received 1 dose of cefadroxil 500 mg 12/26/2023 will hold further
-Consult wound care
-s/p RLE angiogram -Diagnostic arteriogram, drug coated balloon angioplasty, balloon angioplasty with intravascular lithotripsy of the right AT artery, javelin intravascular lithotripsy of the SFA and popliteal arteries, stent placement in right SFA
and popliteal artery
-no surgical treatment recommended by Podiatry
-heel protector boots while in bed. Cont with DAPT.
-Plan for OP LLE angiogram.
#Left femoral artery pseudoaneurysm
-s/p thrombin injection in OR on 01/01/24
-Trend cbc.
-US groin in am to reassess aneusrysm.
-await vascular recs-recs monitor overnight.
#Indeterminate 5 mm Pulmonary nodule right middle lobe incidental found on CT angiogram of chest and abdomen
-Follow-up outpatient with pulmonary for monitoring
#ESRD dialysis Friday
#Right upper chest wall dialysis catheter new 1 placed 3 days ago per patient on 12/25/2023
#Attempt to put AV fistula right forearm causing nerve damage to left hand with limited opening and grasp
-appreciate Nephrology
-HD tomm
#Anemia of chronic disease
trend hgb.
#CAD/NSTEMI per any chart
-Continue aspirin, statin 40 mg daily, Plavix, metoprolol succinate 25 mg daily
#DM2/diabetic retinopathy
Accu-Cheks with SSI,
# HTN
-Continue metoprolol and volume removal via HD should help. Bp controlled
#HLD
cont crestor 10mg as based on CrCl
#Chronic CHF unknown type
I/O, daily weights
-Continue Lasix 80 mg Friday
-Continue Entresto twice daily
#Carotid stenosis
-Continue aspirin, Plavix, statin
#Nonrheumatic aortic valve stenosis
#Hyperparathyroidism
#Chronic ambulatory dysfunction
PT/OT/disability case manager consult
#Insomnia
-Continue trazodone 25 mg at bedtime
Vertigo
hearing impaired left
DVT prophylaxis-hep sc
DNR per patient and [facility] chart
d/w with vascular
Dispo-tentative dc tomm pending vascular surgery recs and HD.
Anticipated Discharge: Within 24 hours
Subjective/Interval History
-
Date of Service: January 01, 2024
seen in bed
seen post OP
states of mild discomfort Left groin
Objective Data
-
Vital Signs:
Vital Signs
Temp Pulse Resp BP Pulse Ox
98.6 F 107 18 110/67 96
12/31/23 22:15 12/31/23 22:15 12/31/23 22:15 12/31/23 22:15 12/31/23 22:15
I&O
12/31/23 01/01/24 01/02/24
06:59 06:59 06:59
Intake Total 530 / 530
Output Total 0 / 0
Balance 530 / 530
[2024-01-01 12:35] LABS: Glucose - Point of Care 160 mg/dl (70-99)
[2024-01-01] MEDS: NOVOLOG FLEXPEN-LOW RESISTANCE 1 UNITS SC (13:14)
--- NOTE | 2024-01-01 15:37 | CM ---
Spoke with patients jt Ritter, updated that [facility] has no beds.
TC to [facility] patients outpatient dialysis site to see which facilities gtransport there for HD.
Referrals placed to [facility], [facility] and [facility]. CM attempted calling all and left VM.
Riya updated and aware no beds at [facility].
Explained to Riya patient is on HD and there are not many facilities that offer in house HD, If none of the facilities referrals sent to are able to accept, may need additional referrals or back to [facility]. Riya in agreement.
Pt to OR today.
Plan: skilled rehab once medically stable.
[2024-01-01 17:48] LABS: Glucose - Point of Care 121 mg/dl (70-99)
[2024-01-01 21:19] LABS: Glucose - Point of Care 191 mg/dl (70-99)
[2024-01-01] MEDS: DESYREL 25 MG PO (22:05)
[2024-01-02 02:58] VITALS: BP 113/71
[2024-01-02 05:55] VITALS: BMI 18.5
[2024-01-02 07:05] VITALS: BP 128/68
[2024-01-02] MEDS: COLACE 100 MG PO (07:41)
[2024-01-02] MEDS: LOW STRENGTH ASPIRIN 81 MG PO (07:41)
[2024-01-02] MEDS: CRESTOR 10 MG PO (07:41)
[2024-01-02] MEDS: FEOSOL 325 MG PO (07:41)
[2024-01-02] MEDS: VITAMIN D3 (cholecalciferol) 25 MCG PO (07:41)
[2024-01-02] MEDS: PLAVIX 75 MG PO (07:41)
[2024-01-02] MEDS: HEPARIN 5000 UNITS SC (07:43)
[2024-01-02] MEDS: ProAmatine 5 MG PO ×2 (07:48→16:04)
[2024-01-02 07:53] LABS: Glucose - Point of Care 248 mg/dl (70-99)
[2024-01-02 07:58] LABS: Hematocrit 33.9 % (37.0-47.0); Hemoglobin 10.6 g/dL (12.0-16.0); Mean Corp Hgb Conc. 31.3 g/dL (33.0-37.0); Mean Corpuscular Hgb 31.5 pg (27.0-31.0); Mean Corpuscular Volume 100.9 fL (81.0-99.0); Mean Platelet Volume 11.4 fL (7.4-10.4); Platelet Count 184 10^3/uL (130-400); Red Blood Cell Count 3.36 10^6/uL (4.20-5.40); Red Cell Dist. Width 15.1 % (11.5-14.5); White Blood Cell Count 7.3 10^3/uL (4.8-10.8)
[2024-01-02] MEDS: NOVOLOG FLEXPEN-LOW RESISTANCE SC ×2 (08:06→12:03)
[2024-01-02 08:43] LABS: Blood Urea Nitrogen 42 mg/dl (7-17); Carbon Dioxide 23 mmol/L (22-30); Chloride 97 mmol/L (98-107); Estimated Creatinine Clearance 8 ml/min; Glucose 126 mg/dl (70-99); Potassium 4.5 mmol/L (3.5-5.1); Sodium 136 mmol/L (135-145); eGFR 9.41
--- NOTE | 2024-01-02 10:20 | W.PN.NEPH.HD ---
Assessment
-
Patient seen on dialysis
Systolic blood pressure 124 at current UF
Discharge after dialysis
Progress Note - Hemodialysis
-
Date of Service: January 02, 2024
Duration: 30 minutes and 3 hours
Potassium Bath: 2
Calcium Bath: 2.5
Opti-Dialyzer: 160
Ultrafiltration: Other (2kg)
Blood Flow: 400
Dialysate Flow: 600
Heparin: none
EPO: 3000
--- NOTE | 2024-01-02 10:30 | W.PN.VS ---
Today's Communication / Plan
-
Seen and assessed Dr. Barone
Assessment/Plan
-
Assessment: 73-year-old female POD #2 Intravascular lithotripsy to right superficial femoral artery/popliteal artery using Shockwave Javelin catheter, drug-coated balloon angioplasty of right superficial femoral artery and popliteal artery (5 mm x
300 mm Lutonix), balloon angioplasty and stenting of right superficial femoral artery and popliteal artery using overlapping LifeStents: 6 mm x 60 mm distal; 6 mm x 80 mm; 6 mm x 150 mm; 6 mm x 40 mm proximal), intravascular lithotripsy to right
anterior tibial artery stenosis (3 mm x 80 mm E8 shockwave balloon), diagnostic aortobiiliac arteriogram, diagnostic BILATERAL lower extremity arteriogram, ultrasound-guided percutaneous access to the left common femoral artery
POD #1 Ultrasound-guided percutaneous thrombin injection to left femoral artery pseudoaneurysm
Plan:
Continue DAPT therapy of aspirin 81 mg p.o. daily and Plavix 75 mg p.o. daily
Continue local wound care
US this am to reassess PSA, likely can DC after scan
Subjective Data
-
Date of Service: January 02, 2024
Patient seen at bedside this a.m. with Dr. Barone. Patient offers no complaints at this time. Patient on HD at this time. Groin ultrasound ordered for this morning
Objective Data
-
Vital Signs
Temp Pulse Resp BP Pulse Ox
98.6 F 102 18 128/68 94
01/02/24 07:05 01/02/24 07:05 01/02/24 07:05 01/02/24 07:05 01/02/24 07:05
Intake and Output
01/01/24 01/02/24 01/03/24
06:59 06:59 06:59
Intake Total 900 / 900 200 / 200
Output Total 100 / 100
Balance 800 / 800 200 / 200
Intake:
Oral fluids 900 / 900 200 / 200
Output:
Urine, Voided 100 / 100
Other:
Number of approximated SMALL 1
amounts of urine
Lab Results
01/02/24 07:21
01/02/24 07:21
Calcium 9.0 mg/dl (8.4-10.2) 01/02/24 07:21
Total Bilirubin 0.2 mg/dl (0.2-1.3) 12/28/23 05:37
AST 19 U/L (14-36) 12/28/23 05:37
ALT 11 U/L (0-35) 12/28/23 05:37
Alkaline Phosphatase 63 U/L (38-126) 12/28/23 05:37
Total Protein 5.7 g/dl (6.3-8.2) L 12/28/23 05:37
Albumin 3.5 g/dl (3.5-5.0) 12/28/23 05:37
Physical Exam
-
No apparent distress, resting in bed comfortably
No tachycardia
No dyspnea on room air
ABD flat, nontender, nondistended
Left groin puncture site CDI, all surrounding compartments soft
Bilateral DP by Doppler, right PT by Doppler, bilateral feet warm
[2024-01-02] MEDS: HEPARIN 3600 UNITS INTRACATH (11:31)
[2024-01-02 11:38] VITALS: BP 126/67
[2024-01-02] MEDS: LASIX PO ×2 (12:02→15:43)
[2024-01-02] MEDS: ENTRESTO 24 MG/26 MG 1 TAB PO (12:03)
[2024-01-02] MEDS: TOPROL XL 25 MG PO (12:03)
[2024-01-02 12:04] LABS: Glucose - Point of Care 100 mg/dl (70-99)
--- NOTE | 2024-01-02 12:35 | W.PN.HOSP.TC ---
Addendum entered and electronically signed by Antione Winter MD 01/02/24 16:44:
Discussed with vascular surgery patient will need repeat outpatient ultrasound. Vascular surgery office will call and follow-up with patient. Per vascular patient can be discharged today.
More than 30 minutes spent in discharge including
Final examination of the patient
Summarizing hospital stay
Instructions for continuing care to all relevant caregivers
Preparation of discharge records, prescriptions, and referral forms
Total time spent (in minutes): 52
Original Note:
Today's Communication/Plan
-
-tentative dc later today pending US results after HD.
Assessment / Plan
Assessment / Plan
Patient is a 73y F with PMH significant for ASCVD, ESRD on HD and DM-II who was sent to the ED from local [place] for evaluation of R foot discoloration.
#Nonhealing right fifth toe gangrene secondary to arterial stenosis/PVD
#Right heel scab
-Outpatient arterial Doppler 12/27/2023 showing arterial stenosis per [place] report scanned into computer
-Patient received 1 dose of cefadroxil 500 mg 12/26/2023 will hold further
-Consult wound care
-s/p RLE angiogram -Diagnostic arteriogram, drug coated balloon angioplasty, balloon angioplasty with intravascular lithotripsy of the right AT artery, javelin intravascular lithotripsy of the SFA and popliteal arteries, stent placement in right SFA
and popliteal artery
-no surgical treatment recommended by Podiatry
-heel protector boots while in bed. Cont with DAPT.
-Plan for OP LLE angiogram. Scheduled already per vascular.
#Left femoral artery pseudoaneurysm
-s/p thrombin injection in OR on 01/01/24
-Trend cbc. Hgb stable
-US groin pending for today to reassess aneurysm.
#Indeterminate 5 mm Pulmonary nodule right middle lobe incidental found on CT angiogram of chest and abdomen
-Follow-up outpatient with pulmonary for monitoring
#ESRD dialysis Friday
#Right upper chest wall dialysis catheter new 1 placed 3 days ago per patient on 12/25/2023
#Attempt to put AV fistula right forearm causing nerve damage to left hand with limited opening and grasp
-d/w Nephrology
-undergoing HD
#Anemia of chronic disease
trend hgb.
#CAD/NSTEMI per any chart
-Continue aspirin, statin 40 mg daily, Plavix, metoprolol succinate 25 mg daily
#DM2/diabetic retinopathy
Accu-Cheks with SSI,
# HTN
-Continue metoprolol and volume removal via HD should help. Bp controlled
#HLD
cont crestor 10mg as based on CrCl
#Chronic CHF unknown type
I/O, daily weights
-Continue Lasix 80 mg Friday
-Continue Entresto twice daily
#Carotid stenosis
-Continue aspirin, Plavix, statin
#Nonrheumatic aortic valve stenosis
#Hyperparathyroidism
#Chronic ambulatory dysfunction
PT/OT/director of casework department consult
#Insomnia
-Continue trazodone 25 mg at bedtime
Vertigo
hearing impaired left
DVT prophylaxis-hep sc
DNR per patient and [facility] chart
Dispo-tentative dc later today pending US results after HD.
Anticipated Discharge: Today
Subjective/Interval History
-
Date of Service: January 02, 2024
seen on HD
denies groin pain or discomfort
Objective Data
-
Labs:
Laboratory Results
01/02/24
07:21
WBC 7.3
Hgb 10.6 L
Hct 33.9 L
Plt Count 184
Sodium 136
Potassium 4.5
Chloride 97 L
Carbon Dioxide 23
BUN 42 H
Creatinine 4.6 H*
Glucose 126 H
Calcium 9.0
Vital Signs:
Vital Signs
Temp Pulse Resp BP Pulse Ox
97.2 F 85 18 126/67 98
01/02/24 11:38 01/02/24 12:03 01/02/24 11:38 01/02/24 12:03 01/02/24 11:38
I&O
01/01/24 01/02/24 01/03/24
06:59 06:59 06:59
Intake Total 900 / 900 200 / 200
Output Total 100 / 100
Balance 800 / 800 200 / 200
Physical Exam
-
General: No Apparent Distress, Comfortable and Conversant
HEENT: Other (R chest wall HD catheter noted )
Respiratory: Clear to Auscultation; Negative Wheezes
Cardiac: Regular Rhythm and S1/S2
GI: Soft, Nontender, Nondistended and Normal Bowel Sounds
Musculoskeletal: No Edema and Other (right foot with necrotic appearing 5th digit with scab; bilateral heel wounds)
Skin: Warm and Dry; Negative Rash
Neuro: Awake and No Motor Deficits
Psych: Calm
--- NOTE | 2024-01-02 14:32 | CM ---
CM reviewed chart, call placed to patients Riya waters, updated [facility] can offer patient a bed, patient for discharge today. Riya would prefer patient return to [facility], update to Belia at [facility], can accept patient
for return. Patient scheduled for 6:00 p.m. ambulance transport. CM will continue to follow for all discharge planning needs.
Plan; return to [facility], 6:00 p.m. ambulance transport
[place]
Report [phone]
[2024-01-02 15:44] VITALS: BP 100/55
--- NOTE | 2024-01-02 16:16 | W.DCSUMMARY ---
Discharge Summary
Discharge Data
Date of Admission: 12/30/23
Date of Discharge: 01/02/24
-
Pending Results: No
Hospital Course
73 female past medical history of ESRD on hemodialysis, anemia of chronic disease, CAD, diabetes mellitus, peripheral arterial disease, chronic CHF, carotid stenosis, aortic valve stenosis, hyperparathyroidism secondary to ESRD, chronic ambulatory
dysfunction was presented from care home for evaluation of right foot discoloration. Patient was eval by podiatry and recommended no surgical intervention required. Patient was found to have a abnormal arterial Doppler as outpatient. Patient
was eval by vascular surgery and patient underwent s/p RLE angiogram -Diagnostic arteriogram, drug coated balloon angioplasty, balloon angioplasty with intravascular lithotripsy of the right AT artery, javelin intravascular lithotripsy of the SFA
and popliteal arteries, stent placement in right SFA and popliteal artery. Postprocedure patient was found to have a left femoral artery pseudoaneurysm status post thrombin injection in OR on 01/01/2024. Repeat ultrasound with stabilization of
aneurysm with mild pseudo still seen. However by vascular Dr. Barone no acute intervention required and patient can be discharged and the office will follow-up with patient for repeat ultrasound. Hemoglobin was trended and was stable. Patient also
received regularly scheduled hemodialysis. Patient also recommend to follow-up with pulmonary for indeterminate pulmonary nodule. Patient be discharged back to [facility].
Discharge Plan
-
Patient Disposition: [facility]/SNF
Discharge Diagnosis/Procedures: Nonhealing right toe gangrene secondary to severe right lower extremity peripheral arterial disease
Status post bilateral lower extremity angiogram
Left femoral artery pseudoaneurysm status post thrombin injection
ESRD status post hemodialysis
Condition: Fair
Diet: 2 Gram Sodium, Diabetic, Carb Controlled and Restrict fluids to 48 oz
Activity: With assistance and As tolerated
Driving Restrictions: Not until seen by your Dr
Activity Restrictions/Additional Instructions:
Wound Care Instructions
B/L arms: clean with soap and water, adaptic and silicone foam change q other day and prn soilage. Toes: [place] eschar on toes with Betadine, piece of alginate btw 4-5th toe web change daily and prn soilage.
Heels: skin prep and Foam adhesives change q 3 days and prn soilage.
Follow up at wound care center call for an appointment.
Stand Alone Forms: DC Instr - Vascular OR
Referrals:
Nati Don MD [Family Provider] - in less than 1 week
Magdi Barone III, MD [Active] - (Our office will call you with your follow up appt)
Adelita Carlson DO [Active] - in one month (Make appointment to follow-up for pulmonary nodules.)
Prescriptions:
Continued
glucagon
1 mg IM DIRECTED PRN (Reason: hypoglycemia)
Rx Instructions:
1 mg intramuscularly as needed
insulin aspart U-100
1 dose SC ACHS
Rx Instructions:
sliding scale as per order
furosemide 40 mg Tablet
80 mg PO BID
Rx Instructions:
, , Sat (non-dialysis days only)
acetaminophen 325 mg Tablet
650 mg PO Q6H PRN (Reason: mild pain)
trazodone 50 mg Tablet
25 mg PO HS
ondansetron HCl 4 mg Tablet
4 mg PO Q6H PRN (Reason: nausea)
midodrine 5 mg Tablet
5 mg PO BID
Rx Instructions:
Hold for SBP > 140
clopidogrel 75 mg Tablet
75 mg PO DAILY
guaifenesin 100 mg/5 mL Liquid
200 mg PO Q8H PRN (Reason: cough)
docusate sodium [Colace] 100 mg Capsule
100 mg PO DAILY
aspirin 81 mg Tablet,Chewable
81 mg PO DAILY
metoprolol succinate 25 mg Tablet Extended Release 24 Hr
25 mg PO DAILY
rosuvastatin 40 mg Tablet
40 mg PO DAILY
Aquaphor Original 41 % Ointment
1 applic TOPICAL DAILY PRN (Reason: itching)
cholecalciferol (vitamin D3) 25 mcg (1,000 unit) Tablet
25 mcg PO DAILY
ferrous gluconate 325 mg (36 mg iron) Tablet
325 mg PO DAILY
omega 3-saj-oqg-fish oil [Fish Oil] 1,000 (120-180) mg Capsule
1 cap PO DAILY
sacubitril-valsartan 24-26 mg Tablet
1 tab PO BID
Discontinued
cefadroxil 500 mg Capsule
500 mg PO MOWEFR
Discharge Orders:
Discharge Patient (As Directed); Ordered 01/02/24
Ordered By: Antione Winter
Discharge Date and Time
Discharge Date/Time: 01/02/24 18:20
Print Language: JORDANIAN
[2024-01-02 16:25] LABS: Glucose - Point of Care 254 mg/dl (70-99)
[2024-01-02] MEDS: NOVOLOG FLEXPEN-LOW RESISTANCE 3 UNITS SC (16:43)
--- NOTE | 2024-01-02 17:08 | PTCARENOTE ---
attempted to call [facility] multiple times and got busy signal.
== END 2024-01-02 18:20 | DRG 278 ==
LOC: 4 WEST ACU 07:41
PROVIDERS: Clinical Nurse Specialist Family Health; Internal Medicine; Nurse Practitioner; Nurse Practitioner Acute Care; Specialist; Surgery Vascular Surgery; ADMITTING PHYSICIAN Hospitalist; ATTENDING PHYSICIAN Hospitalist; CONSULT PHYSICIAN Podiatrist Foot Surgery; CONSULT PHYSICIAN Specialist; CONSULT PHYSICIAN Surgery Vascular Surgery; EMERGENCY PHYSICIAN Emergency Medicine; FAMILY PHYSICIAN Family Medicine
PROC: 5A1D70Z Performance of Urinary Filtration, Intermittent, Less than 6 Hours Per Day (ICD-10-PCS; 2023-12-29)
PROC: 047M3EZ Dilation of Right Popliteal Artery with Two Intraluminal Devices, Percutaneous Approach (ICD-10-PCS; 2023-12-30)
PROC: 04FM3ZZ Fragmentation of Right Popliteal Artery, Percutaneous Approach (ICD-10-PCS; 2023-12-30)
PROC: 047K3EZ Dilation of Right Femoral Artery with Two Intraluminal Devices, Percutaneous Approach (ICD-10-PCS; 2023-12-30)
PROC: 04FK3ZZ Fragmentation of Right Femoral Artery, Percutaneous Approach (ICD-10-PCS; 2023-12-30)
PROC: B41D1ZZ Fluoroscopy of Aorta and Bilateral Lower Extremity Arteries using Low Osmolar Contrast (ICD-10-PCS; 2023-12-30)
PROC: 04FP3ZZ Fragmentation of Right Anterior Tibial Artery, Percutaneous Approach (ICD-10-PCS; 2023-12-30)
PROC: 3E053GC Introduction of Other Therapeutic Substance into Peripheral Artery, Percutaneous Approach (ICD-10-PCS; 2024-01-01)
DX: I70.263 Atherosclerosis of native arteries of extremities with gangrene, bilateral legs (principal); N18.6 End stage renal disease; E87.20 Acidosis, unspecified; N25.81 Secondary hyperparathyroidism of renal origin; I13.0 Hypertensive heart and chronic kidney disease with heart failure and stage 1 through stage 4 chronic kidney disease, or unspecified chronic kidney disease; I50.22 Chronic systolic (congestive) heart failure; T81.718A Complication of other artery following a procedure, not elsewhere classified, initial encounter; I72.4 Aneurysm of artery of lower extremity; E11.319 Type 2 diabetes mellitus with unspecified diabetic retinopathy without macular edema; E11.52 Type 2 diabetes mellitus with diabetic peripheral angiopathy with gangrene; I70.261 Atherosclerosis of native arteries of extremities with gangrene, right leg; Y83.8 Other surgical procedures as the cause of abnormal reaction of the patient, or of later complication, without mention of misadventure at the time of the procedure
CPT/HCPCS: 75625; 75635; 75716; 80048; 80051; 80053; 80061; 82728; 82962; 83036; 83540; 83550; 83605; 85025; 85027; 85652; 86140; 86706; 87070; 87340; 93922; 93925; 93926; 93990; 96365; 96366; 97163; 97167; 99285; C1725; C1769; C1876; C1894; C2623; C9765; C9772; G0257; P9047; Q9967

== ENCOUNTER → 2024-02-05 10:22 | Outpatient (REF) | payer MEDICARE, OTHER, SELFPAY | LOC: RAD 10:22 | PROVIDERS: ATTENDING PHYSICIAN Registered Nurse; FAMILY PHYSICIAN Family Medicine | DX: R26.9 Unspecified abnormalities of gait and mobility (principal); I73.9 Peripheral vascular disease, unspecified; S91.309A Unspecified open wound, unspecified foot, initial encounter | CPT/HCPCS: 93922; 93925; 93926 ==

== ENCOUNTER 2024-03-05 12:12 | Inpatient (IN) | payer MEDICARE, OTHER, SELFPAY ==
[2024-03-05] VITALS (25 sets, daily range): BP systolic 85–129; BP diastolic 37–77; BMI 18.3
[2024-03-05 07:31] LABS: Hematocrit 34.7 % (37.0-47.0); Hemoglobin 11.7 g/dL (12.0-16.0); Mean Corp Hgb Conc. 33.7 g/dL (33.0-37.0); Mean Corpuscular Hgb 32.7 pg (27.0-31.0); Mean Corpuscular Volume 96.9 fL (81.0-99.0); Mean Platelet Volume 10.6 fL (7.4-10.4); Platelet Count 193 10^3/uL (130-400); Red Blood Cell Count 3.58 10^6/uL (4.20-5.40); Red Cell Dist. Width 16.6 % (11.5-14.5); White Blood Cell Count 7.8 10^3/uL (4.8-10.8)
[2024-03-05 07:57] LABS: INR 0.98; PT 13.3 Sec (11.4-14.6)
[2024-03-05 07:58] LABS: APTT 28.4 Sec (23.4-35.0)
[2024-03-05 08:26] LABS: Blood Urea Nitrogen 76 mg/dl (7-17); Calcium 8.9 mg/dl (8.4-10.2); Carbon Dioxide 21 mmol/L (22-30); Chloride 93 mmol/L (98-107); Estimated Creatinine Clearance 10 ml/min; Glucose 126 mg/dl (70-99); Potassium 3.4 mmol/L (3.5-5.1); Sodium 131 mmol/L (135-145); eGFR 13.53
[2024-03-05 11:26] LABS: ACT-LR - POC 215 Seconds (116-155)
[2024-03-05 12:36] LABS: Glucose - Point of Care 161 mg/dl (70-99)
--- NOTE | 2024-03-05 12:38 | W.IMMPOSTOP ---
Surgical Immed Post Op Note
-
Primary Surgeon: Lizabeth
Assisting Surgeon: Joaquina
Pre-op Diagnosis: chronic limb threatening ischemia
Post-op Diagnosis: chronic limb threatening ischemia
Procedure Performed: LLE angiogram, balloon angioplasty + stenting of L SFA, L AT with R fem and L DP access
Anesthesia Type: Sedation converted to general anesthesia
Specimen / Cultures: none
Estimated Blood Loss: 5 cc
Complications: none
Operative Findings: LLE angiogram, balloon angioplasty + stenting of L SFA, L AT with R fem and L DP access
[2024-03-05] MEDS: ZOFRAN 4 MG IV (13:11)
--- NOTE | 2024-03-05 14:53 | WOUNDNOTE ---
R 5TH TOE (LATERAL ASPECT)
--- NOTE | 2024-03-05 14:55 | WOUNDNOTE ---
R CHEST (ANTERIOR UPPER)
--- NOTE | 2024-03-05 14:57 | WOUNDNOTE ---
[facility] RN note: Patient admitted s/p LLE angioplasty, stenting L SFA by Dr. Barone. Patient lives in SNF setting as per patient.
See H&P for complete history.
PMH: PAD, DC, CAD, DM, ESRD on HD, Covid.
Wound Location and type/assessment: Patient admitted with: sacral/coccyx pressure injury (sacral stage 1 pressure injury, coccyx stage 2), L knee dry scabbed healing abrasion, L arm dermal abrasion, L heel dry black gangrene r/t PAD, R heel black
eschar r/t PAD and possible pressure, R knee bruise, L flank/hip bruise, bilateral great toe dry gangrenous ulcer, R 5th toe dry gangrenous ulcer. Pedal pulses heard via portable Doppler.
Appetite: on 1999 calorie diet.
Pressure redistribution devices in place: Centrella Pro bed.
Plan: Patient log rolled keeping legs straight for skin assessment and application of static air overlay with help from ROBERTO Rod. Sacral shaped silicone border foam maintained. Betadine applied to heel ulcers, toe dry gangrene. Silicone border foam
changed on L elbow. Heels off bed with air chair cushion.
Confirmed orders with Rosie Louis, Vascular BRICK KILN WORKER and discussed with ROBERTO Rod.
Care plan to be updated and will follow as needed.
Note to case management of equipment requested for discharge: Air mattress.
Patient to follow up with vascular. Patient to follow up with wound animal care assistant or wound care center.
--- NOTE | 2024-03-05 15:48 | W.CON.NEPH ---
Consultation
-
Date/Time Consultation Requested: 03/05/2024 10 AM
Date/Time Consultation Performed: 03/05/2024 2 PM
Requesting Provider: Dr. Barone
Performing Provider: Dr. Tucker
Reason for Consultation: ESRD
Medical History
-
Chief Complaint: Right foot wound
History of Present Illness:
This is a 73-year-old female who has ESRD on dialysis at [facility]. She had previously been dialyzing at [facility]. She is at [facility] for rehab. She has hypertension on a multidrug regimen. He also has
heart failure with reduced ejection fraction on Entresto and is compensated. She has hyperlipidemia controlled statin therapy. She has had poorly healing wounds in her lower legs particularly in the right fifth digit as well as the left heel.
Because of this she was brought in for angiogram. She underwent a gram of her left leg with multiple stents. We are asked to assist with management of her dialysis.
Past Medical History
ESRD, failed right upper extremity AV fistula, hypertension, bilateral renal artery stenosis, heart failure reduced ejection fraction, diabetes mellitus type II, coronary artery disease, Mohs surgery for the nose for basal cell carcinoma,
nephrolithiasis
Social History
Tobacco: Non-Smoker
Alcohol: None
Family History
CKD in a sister
Allergies / Home Medications
Allergy/AdvReac Type Severity Reaction Status Date / Time
No Known Allergies Allergy Verified 03/05/24 07:30
�Medication �Instructions �Recorded �Confirmed �Type
acetaminophen 325 mg tablet 650 mg PO Q6H PRN mild pain 12/27/23 03/05/24 History
aspirin 81 mg chewable tablet 81 mg PO DAILY Blood Clot 12/27/23 03/05/24 History
Prevention/Tx
cholecalciferol (vitamin D3) 25 25 mcg PO DAILY Supplement 12/27/23 03/05/24 History
mcg (1,000 unit) tablet
clopidogrel 75 mg tablet 75 mg PO DAILY Blood Clot 12/27/23 03/05/24 History
Prevention/Tx
docusate sodium 100 mg capsule 100 mg PO DAILY Constipation 12/27/23 03/05/24 History
(Colace)
ferrous gluconate 325 mg (36 mg 325 mg PO MOWEFR on HD days 12/27/23 03/05/24 History
iron) tablet
furosemide 40 mg tablet 80 mg PO TUTHSA Fluid 12/27/23 03/05/24 History
Retention/Swelling
midodrine 5 mg tablet 5 mg PO BID SBP > 140 12/27/23 03/05/24 History
omega 0-tjs-rle-fish oil 1,000 mg 1 cap PO DAILY Supplement 12/27/23 03/05/24 History
(120 mg-180 mg) capsule (Fish Oil)
ondansetron HCl 4 mg tablet 4 mg PO Q6H PRN nausea 12/27/23 03/05/24 History
rosuvastatin 40 mg tablet 40 mg PO DAILY High Cholesterol 12/27/23 03/05/24 History
sacubitril 24 mg-valsartan 26 mg 1 tab PO BID on HD day, MOWEFR 12/27/23 03/05/24 History
tablet
trazodone 50 mg tablet 25 mg PO HS Sleep 12/27/23 03/05/24 History
white petrolatum 41 % topical 1 applic topical HS facial itching 12/27/23 03/05/24 History
ointment (Aquaphor Original)
glucagon HCl 1 mg solution for 1 mg SC Q15M PRN hypoglycemia 03/02/24 03/05/24 History
injection (Glucagon (HCl)
Emergency Kit)
insulin aspart U-100 100 unit/mL 1 sliding scale dose SC DIRECTED 03/02/24 03/05/24 History
subcutaneous solution
metoprolol succinate 25 mg 25 mg PO MOWEFR hold if SBP <110, 03/02/24 03/05/24 History
tablet,extended release 24 hr HR <60
(Toprol XL)
sevelamer carbonate 800 mg tablet 800 mg PO TID 03/02/24 03/05/24 History
Review of Systems
-
Pain in the left foot
All other systems: Negative unless noted
Physical Exam
Vital Signs
Vital Signs
Temp Pulse Resp BP Pulse Ox
98.0 F 105 18 115/57 96
03/05/24 14:15 03/05/24 14:45 03/05/24 14:15 03/05/24 14:45 03/05/24 14:15
Lab Results
WBC 7.8 10^3/uL (4.8-10.8) 03/05/24 07:19
RBC 3.58 10^6/uL (4.20-5.40) L 03/05/24 07:19
Hgb 11.7 g/dL (12.0-16.0) L 03/05/24 07:19
Hct 34.7 % (37.0-47.0) L 03/05/24 07:19
Plt Count 193 10^3/uL (130-400) 03/05/24 07:19
Sodium 131 mmol/L (135-145) L 03/05/24 08:00
Potassium 3.4 mmol/L (3.5-5.1) L 03/05/24 08:00
Chloride 93 mmol/L (98-107) L 03/05/24 08:00
Carbon Dioxide 21 mmol/L (22-30) L 03/05/24 08:00
BUN 76 mg/dl (7-17) H 03/05/24 08:00
Creatinine 3.4 mg/dL (0.6-1.0) H 03/05/24 08:00
eGFR 13.53 03/05/24 08:00
Glucose 126 mg/dl (70-99) H 03/05/24 08:00
Calcium 8.9 mg/dl (8.4-10.2) 03/05/24 08:00
Physical Exam
Patient is awake alert oriented and in no distress. Mood and affect were pleasant, insight and judgment were good. Pupils are equal round and reactive to light, extraocular movements are intact, sclera were anicteric. Hearing was normal, ears and
nose are intact. Oropharynx was clear. Neck was supple with trachea midline and no thyromegaly. Heart was regular rate and rhythm without rubs. Lower extremities without edema. Lungs were clear to auscultation bilaterally and with normal
excursion. Abdomen was soft, nontender, with normal active bowel sounds, and no hepatosplenomegaly. Skin was without rash and with normal turgor. Noted gangrene areas in her left heel and her right fifth toe
Data Reviewed
-
Labs: Labs Reviewed by me
Old Records: Reviewed
Assessment/Plan
-
Assessment
ESRD
Heart failure reduced ejection fraction
Diabetes mellitus type 2
Nephrolithiasis, staghorn calculus
Severe atherosclerotic vascular disease
Coronary artery disease
Nonhealing bilateral foot wound
Metabolic acidosis
Anemia
Status post angioplasty stenting left leg
Ligated right upper extremity AV fistula due to steal
Plan:
HD tomorrow
PHYLICIA on dialysis
Continue outpatient medications
[2024-03-05] MEDS: NSS 500 IV (15:51)
[2024-03-05] MEDS: RENVELA 800 MG PO ×2 (15:57→22:20)
[2024-03-05] MEDS: TOPROL XL 25 MG PO (16:04)
[2024-03-05 16:28] LABS: Glucose - Point of Care 159 mg/dl (70-99)
[2024-03-05] MEDS: NOVOLOG FLEXPEN-MODERATE RESISTANCE 1 UNITS SC (17:53)
[2024-03-05 21:44] LABS: Glucose - Point of Care 310 mg/dl (70-99)
[2024-03-05] MEDS: ENTRESTO 24 MG/26 MG 1 TAB PO (22:20)
[2024-03-05] MEDS: HEPARIN 5000 UNITS SC (22:20)
[2024-03-05] MEDS: HYDROPHOR 1 APPLIC TOPICAL (22:22)
[2024-03-05] MEDS: ProAmatine 5 MG PO (22:22)
[2024-03-05] MEDS: TYLENOL 650 MG PO (22:42)
[2024-03-06 00:28] LABS: Glucose - Point of Care 282 mg/dl (70-99)
[2024-03-06 03:58] VITALS: BP 102/51
[2024-03-06 07:05] VITALS: BP 109/59
--- NOTE | 2024-03-06 07:06 | W.PN.VS ---
Today's Communication / Plan
-
Discussed with Dr. Zamora
Assessment/Plan
-
POD 1: LLE angiogram, balloon angioplasty + stenting of L SFA, L AT with R fem and L DP access
Plan:
-HD this morning
-Patient ready for discharge after HD complete. Will need transport arranged to her facility
Subjective Data
-
Date of Service: March 06, 2024
Patient seen at bedside this a.m. Patient offers no complaints at this time. No events overnight. Stable access sites.
Objective Data
-
Vital Signs
Temp Pulse Resp BP Pulse Ox
97.4 F 95 16 102/51 99
03/06/24 03:58 03/06/24 03:58 03/06/24 03:58 03/06/24 03:58 03/06/24 03:58
Intake and Output
03/05/24 03/06/24 03/07/24
06:59 06:59 06:59
Intake Total 1100 / 1100
Balance 1100 / 1100
Intake:
Oral fluids 720 / 720
IV fluids (Total) 380 / 380
NSS 300 / 300
Other:
Number of approximated SMALL 1
amounts of urine
Number of approximated MODERATE 1
amounts of urine
Calcium 8.9 mg/dl (8.4-10.2) 03/05/24 08:00
Physical Exam
-
AAOx3
No tachypnea on room air
No tachycardia
Abdomen soft, nontender
Right groin site with glue intact, soft, flat
Pedal site dressing clean dry and intact
Bilateral feet warm and pink
Palpable DP pulses bilaterally
[2024-03-06] MEDS: ProAmatine 5 MG PO ×2 (07:09→19:42)
--- NOTE | 2024-03-06 07:10 | W.DS.TRANS ---
DC Summary - [employer]
-
Discharge Instructions:
Discharge Diagnosis/Procedures LLE angiogram, balloon angioplasty + stenting of
L SFA, L AT
Diet As tolerated
Activity No strenuous activity
Driving Restrictions No driving for 24 hours
Bathing Restrictions OK to Shower
Others Tests Ultrasound appointment, office will call you
with this date and time
Instructions:
Stand-Alone Forms: DC Instr - Vascular OR
Changes to Home Medications: No
Discharge Medications:
DC Medications w/original date entered in [employer]
acetaminophen 325 mg tablet 650 mg PO Q6H PRN mild pain 12/27/23
aspirin 81 mg chewable tablet 81 mg PO DAILY Blood Clot Prevention/Tx 12/27/23
cholecalciferol (vitamin D3) 25 mcg (1,000 unit) tablet 25 mcg PO DAILY Supplement 12/27/23
clopidogrel 75 mg tablet 75 mg PO DAILY Blood Clot Prevention/Tx 12/27/23
docusate sodium 100 mg capsule (Colace) 100 mg PO DAILY Constipation 12/27/23
ferrous gluconate 325 mg (36 mg iron) tablet 325 mg PO MOWEFR on HD days 12/27/23
furosemide 40 mg tablet 80 mg PO TUTHSA Fluid Retention/Swelling 12/27/23
midodrine 5 mg tablet 5 mg PO BID SBP > 140 12/27/23
omega 0-bnr-xct-fish oil 1,000 mg (120 mg-180 mg) capsule (Fish Oil) 1 cap PO DAILY Supplement 12/27/23
ondansetron HCl 4 mg tablet 4 mg PO Q6H PRN nausea 12/27/23
rosuvastatin 40 mg tablet 40 mg PO DAILY High Cholesterol 12/27/23
sacubitril 24 mg-valsartan 26 mg tablet 1 tab PO BID on HD day, MOWEFR 12/27/23
trazodone 50 mg tablet 25 mg PO HS Sleep 12/27/23
white petrolatum 41 % topical ointment (Aquaphor Original) 1 applic topical HS facial itching 12/27/23
glucagon HCl 1 mg solution for injection (Glucagon (HCl) Emergency Kit) 1 mg SC Q15M PRN hypoglycemia 03/02/24
insulin aspart U-100 100 unit/mL subcutaneous solution 1 sliding scale dose SC DIRECTED 03/02/24
metoprolol succinate 25 mg tablet,extended release 24 hr (Toprol XL) 25 mg PO MOWEFR hold if SBP <110, HR <60 03/02/24
sevelamer carbonate 800 mg tablet 800 mg PO TID 03/02/24
Home Medication Changes
Pending Results: No
[2024-03-06 07:36] LABS: Glucose - Point of Care 168 mg/dl (70-99)
--- NOTE | 2024-03-06 07:41 | OR.RPT ---
Operative Report
Operative Report
Date of Operation: 03/05/2024
Pre Op Diagnosis:
1. Peripheral arterial occlusive disease with chronic limb threatening ischemia
2. Left heel gangrene
3. End-stage renal disease requiring hemodialysis
4. Diabetes with insulin dependence
Post Op Diagnosis:
1. Peripheral arterial occlusive disease with chronic limb threatening ischemia
2. Left heel gangrene
3. End-stage renal disease requiring hemodialysis
4. Diabetes with insulin dependence
Procedure:
1.) Intravascular lithotripsy to left superficial femoral artery and popliteal artery using shockwave javelin catheter
2.) Balloon angioplasty and drug-eluting stents to left popliteal artery and superficial femoral artery (Zilver PTX: 6 mm x 140 mm (x2), 6 mm x 100 mm)
3.) Balloon angioplasty of below-knee popliteal artery (4 mm angioplasty balloon)
4.) Balloon angioplasty and stenting of left anterior tibial artery (3 mm x 38 mm Contreras Esprit; postdilated with a 3 mm noncompliant balloon)
5.) Diagnostic aortobiiliac arteriogram
6.) Diagnostic left lower extremity arteriogram
7.) Ultrasound-guided retrograde pedal access to the distal left anterior tibial artery
8.) Ultrasound-guided percutaneous access to the right common femoral artery
9.) Pro-glide closure device right common femoral artery access
Surgeon: Magdi Barone III, MD
Managing Editor: Shay Kunz MD PGY1
Anesthesia: Sedation with local
Fluoroscopy:
79.9 min
182 mGy
26.24 Gy.cm2
Complications: None
Estimated Blood Loss: 20 cc
History and Indications for Procedure: 73-year-old female with multiple medical comorbidities and chronic limb threatening ischemia of the left lower extremity manifested by gangrenous left heel wound
Procedure in Detail: Chelo Lemos was correctly identified and placed supine on the operating table. After adequate induction of anesthesia the bilateral groins were prepped and draped in the usual sterile fashion. A timeout was performed with the
nursing and anesthesia staff confirming the patient's identity as well as the nature and laterality of the procedure.
The right common femoral artery was identified under ultrasound guidance. The artery was patent. The superior and inferior aspects of the femoral head were identified with radiographic guidance and marked at the skin level. The proposed puncture
site was infiltrated with local anesthesia. Under ultrasound guidance we accessed the right common femoral artery with a micropuncture needle and upsized to a 5 Fr sheath over a Findery wire. The wire and a ShepherRevenew hook flush catheter were
advanced into the distal abdominal aorta and a diagnostic aorto-biiliac arteriogram was performed:
AORTO-ILIAC ARTERIOGRAM:
Aorta: Patent. Mild to moderate distal aortic stenosis proximal to the bifurcation
Right common iliac artery: Patent with no significant stenosis identified
Right external iliac artery: Patent with no significant stenosis identified
Left common iliac artery: Focal mild to moderate stenosis. Patent.
Left external iliac artery: Patent with no significant stenosis identified
Under roadmap guidance using a Glidewire and the Shepherds hook catheter we selected the left common iliac artery and then the external iliac artery. A catheter was tracked up and over the aortic bifurcation and placed in the distal external iliac
artery. A diagnostic left lower extremity arteriogram was then performed which demonstrated the following:
LEFT LOWER EXTREMITY:
Common femoral artery: Patent with no significant stenosis identified
Profunda femoral artery: Patent. Focal high-grade stenosis identified in the main trunk.
Superficial femoral artery: Patent proximally. Focal high-grade stenosis just beyond the origin. Occluded mid and distal segments
Popliteal artery: Occluded above the knee. Reconstitutes behind the knee. Below the knee patent but small diameter.
Anterior tibial artery: Occluded proximally. Reconstitutes beyond the proximal occlusion and is the single tibial runoff distally.
Tibioperoneal trunk: Patent with high-grade stenosis
Peroneal artery: Occluded
Posterior tibial artery: Occluded with no meaningful distal reconstitution.
ENDOVASCULAR INTERVENTION: Systemic heparin was administered. Exchanged out for a 6 Fr 45 cm sheath over a Storq wire. Selected the superficial femoral artery under roadmap guidance with Quickcross catheter and glidewire. The SFA and popliteal
artery occlusion was crossed with a Quickcross and 0.014 Mongo wire. The wire was advanced into the popliteal artery and then the tibioperoneal trunk distally. Neither the crossing catheter nor a 5 mm x 150 mm angioplasty balloon would advance
across the chronically occluded segment. Therefore in an effort to facilitate further endovascular intervention I brought in position a shockwave javelin catheter. Under roadmap guidance the javelin catheter was brought into position in the distal
superficial femoral artery and above-knee popliteal artery. While slowly advancing the javelin catheter over the 0.014 wire I simultaneously delivered lithotripsy pulses across the occluded segment. This was done in an antegrade and retrograde
fashion while advancing and retracting the catheter. All 120 pulses were delivered across the occluded segment. Following delivery of the javelin catheter arteriogram demonstrated a luminal pathway in the superficial femoral artery. I was then
able to deliver the 5 mm x 150 mm angioplasty balloon successfully across the occluded segment. The 5 mm angioplasty balloon was used to treat the entire segment of occlusion from the popliteal artery back to the origin of the superficial femoral
artery. Subsequent arteriogram demonstrated a patent superficial femoral artery and popliteal artery but areas of dissection were identified. I then proceeded with stent placement across the entire SFA pop segment. Overlapping Zilver PTX stents
were placed individually in the desired location and deployed. A 6 mm x 140 mm Zilver PTX was placed and deployed distally. An additional 6 mm x 140 mm Zilver PTX was then positioned and deployed proximal to that. A 6 mm x 100 mm Zilver PTX was
positioned and deployed in the proximal superficial femoral artery. The stents were postdilated with a 5 mm angioplasty balloon. Subsequent arteriogram demonstrated an excellent technical result with widely patent superficial femoral artery and
popliteal artery stents and no significant residual stenosis identified. The below-knee popliteal artery was small in diameter as noted prior. Under roadmap guidance I then brought into position a 4 mm x 80 mm angioplasty balloon. This was
positioned in the desired location and inflated to nominal pressure. The balloon was then held in place for 2-minute inflation. Subsequent arteriogram demonstrated an excellent technical result with a widely patent below-knee popliteal artery.
I then focused my attention on treating the anterior tibial artery disease. There was a proximal stump of patent anterior tibial artery which was heavily diseased at followed by a segmental occlusion. Using a 0.035 quick cross catheter and a
coaxial 0.014 shapeable Spex catheter under roadmap guidance I was able to select the proximal anterior tibial artery with the Mongo wire. I could not advance the wire through the occlusion from this approach despite multiple attempts. I therefore
elected to cross this from retrograde pedal artery access.
The left foot was prepped and draped in the typical sterile fashion. Under ultrasound guidance identified the distal anterior tibial artery at the ankle sulcus which was patent. Under ultrasound guidance I successfully accessed the distal anterior
tibial artery at the ankle sulcus with a micropuncture needle. I then upsized to a 4 Tanzanian sheath over a Bentson wire. The typical radial artery cocktail was administered through the 4 Tanzanian sheath after obtaining retrograde pedal artery access.
Using the 0.014 Spex catheter along with a 0.014 Glidewire advantage I was able to successfully cross the proximal anterior tibial artery occlusion. Under roadmap guidance I then brought into position a 3 mm x 60 mm angioplasty balloon retrograde
from the 4 Tanzanian sheath. I positioned this in the desired location across the proximal anterior tibial artery and inflated the balloon to nominal pressure. This was held in place for 3-minute inflation. Subsequent arteriogram demonstrated an
improved result but there was evidence of a dissection flap across the treated segment. I then brought into position a 3 mm x 38 mm Contreras Esprit scaffold stent retrograde from the 4 Tanzanian sheath. This was positioned in the desired location under
roadmap and magnification view in the proximal anterior tibial artery. The stent was deployed in the desired location. A 3 mm noncompliant balloon was then used to post dilate the stent. Subsequent arteriogram demonstrated an excellent technical
result with a widely patent anterior tibial artery and no residual stenosis identified. Limited distal anterior tibial artery and dorsalis pedis artery flow was seen while the 4 Tanzanian sheath was in place, not surprisingly.
Satisfied with this result we concluded the procedure. The femoral access sheath tip was pulled back into the right external iliac artery. Protamine was administered. Over a Bentson wire a single Pro-glide closure device was utilized in the right
common femoral artery access. Hemostasis was achieved. Nitroglycerin was administered through the 4 Tanzanian sheath in the left foot. The access sheath was pulled and direct manual pressure was held over the puncture site for 10 minutes.
Hemostasis was achieved.
At the conclusion of the case the patient had a palpable dorsalis pedis pulse in the left foot and return of a posterior tibial artery Doppler signal posterior to the medial malleolus.
The patient tolerated the procedure well and was taken to the recovery area in stable condition.
Attestation: I was present and responsible for the entire procedure.
Signed:
Magdi Barone III, MD
[facility] V[facility] Surgery
[phone] (ypdp)
[2024-03-06] MEDS: NOVOLOG FLEXPEN-MODERATE RESISTANCE 1 UNITS SC (08:00)
[2024-03-06 08:42] LABS: Blood Urea Nitrogen 86 mg/dl (7-17); Calcium 8.7 mg/dl (8.4-10.2); Carbon Dioxide 17 mmol/L (22-30); Chloride 96 mmol/L (98-107); Estimated Creatinine Clearance 10 ml/min; Glucose 145 mg/dl (70-99); Potassium 4.5 mmol/L (3.5-5.1); Sodium 130 mmol/L (135-145); eGFR 13.07
[2024-03-06] MEDS: HEPARIN 500 UNITS IV ×2 (09:14)
[2024-03-06 10:38] LABS: Hemoglobin 9.5 g/dL (12.0-16.0); Mean Corp Hgb Conc. 33.9 g/dL (33.0-37.0); Mean Corpuscular Hgb 32.4 pg (27.0-31.0); Mean Corpuscular Volume 95.6 fL (81.0-99.0); Mean Platelet Volume 11.8 fL (7.4-10.4); Platelet Count 151 10^3/uL (130-400); Red Blood Cell Count 2.93 10^6/uL (4.20-5.40); Red Cell Dist. Width 16.5 % (11.5-14.5)
--- NOTE | 2024-03-06 10:45 | CM ---
Addendum entered by Chelo Holder RN 03/06/24 14:49:
Voice message regarding discharge for patient's [id number] Riya listed as person to contact.
Addendum entered by Chelo Holder RN 03/06/24 11:55:
Per Belia, [facility] will accept the patient back today.
[facility]
Report [phone]

Addendum entered by Chelo Holder RN 03/06/24 10:49:
Sister's home is a two story home with a flight of steps to enter.
Original Note:
Reviewed the chart notes and spoke with the patient at the bedside. Patient has been at [facility] for short term rehab. Patient reports being wheelchair bound. Patient prior to [facility] resided with her sister. Patient receives HD
M-W-. Patient receiving HD today. Messages left for [facility] liaison and [facility] auto damage trainee to inquire if patient able to return. CM continues to be available to patient/family and is monitoring medical plan for needs at discharge.
Plan: Discharge hopefully back to [facility] once they accept patient back. Referral sent via [facility].
[2024-03-06] MEDS: HEPARIN 2000 UNITS INTRACATH (11:16)
--- NOTE | 2024-03-06 11:16 | W.PN.NEPH.HD ---
Assessment
-
Seen on dialysis. Vital signs stable, access good, no complaints, for discharge
Progress Note - Hemodialysis
-
Date of Service: March 06, 2024
Duration: 30 minutes and 3 hours
Potassium Bath: 4
Calcium Bath: 2.5
Opti-Dialyzer: 160
Ultrafiltration: Other (2 kg)
Blood Flow: 400
Dialysate Flow: 600
Heparin: 500 x 2
EPO: No
[2024-03-06 11:49] LABS: Glucose - Point of Care 97 mg/dl (70-99)
[2024-03-06 11:53] VITALS: BP 141/43
[2024-03-06] MEDS: COLACE 100 MG PO (12:06)
[2024-03-06] MEDS: LOW STRENGTH ASPIRIN 81 MG PO (12:07)
[2024-03-06] MEDS: VITAMIN D3 (cholecalciferol) 25 MCG PO (12:07)
[2024-03-06] MEDS: PLAVIX 75 MG PO (12:07)
[2024-03-06] MEDS: HEPARIN 5000 UNITS SC ×2 (12:08→19:43)
[2024-03-06] MEDS: CRESTOR 40 MG PO (12:08)
[2024-03-06] MEDS: ENTRESTO 24 MG/26 MG 1 TAB PO ×2 (12:08→19:42)
[2024-03-06] MEDS: RENVELA 800 MG PO ×2 (12:09→15:34)
[2024-03-06] MEDS: NOVOLOG FLEXPEN-MODERATE RESISTANCE SC (12:16)
[2024-03-06 15:41] VITALS: BP 106/62
[2024-03-06 16:49] LABS: Glucose - Point of Care 263 mg/dl (70-99)
[2024-03-06] MEDS: NOVOLOG FLEXPEN-MODERATE RESISTANCE 5 UNITS SC (16:49)
--- NOTE | 2024-03-06 19:15 | PTCARENOTE ---
Transport was scheduled to arrive @18:00, at time of this note still awaiting their arrival, detailed report given to nightshift ROBERTO Catherine to give verbal report to Transport team upon arrival.
[2024-03-06 19:29] VITALS: BP 110/61
== END 2024-03-06 20:00 | DRG 278 ==
LOC: 2 SOUTH 12:12
PROVIDERS: Nurse Practitioner; ADMITTING PHYSICIAN Surgery Vascular Surgery; CONSULT PHYSICIAN Specialist; FAMILY PHYSICIAN Internal Medicine
PROC: 04FL3ZZ Fragmentation of Left Femoral Artery, Percutaneous Approach (ICD-10-PCS; 2024-03-06)
PROC: 047L34Z Dilation of Left Femoral Artery with Drug-eluting Intraluminal Device, Percutaneous Approach (ICD-10-PCS; 2024-03-06)
PROC: 047Q3DZ Dilation of Left Anterior Tibial Artery with Intraluminal Device, Percutaneous Approach (ICD-10-PCS; 2024-03-06)
PROC: 047N34Z Dilation of Left Popliteal Artery with Drug-eluting Intraluminal Device, Percutaneous Approach (ICD-10-PCS; 2024-03-06)
PROC: 5A1D70Z Performance of Urinary Filtration, Intermittent, Less than 6 Hours Per Day (ICD-10-PCS; 2024-03-06)
PROC: B41D1ZZ Fluoroscopy of Aorta and Bilateral Lower Extremity Arteries using Low Osmolar Contrast (ICD-10-PCS; 2024-03-06)
PROC: 04FN3ZZ Fragmentation of Left Popliteal Artery, Percutaneous Approach (ICD-10-PCS; 2024-03-06)
DX: E11.52 Type 2 diabetes mellitus with diabetic peripheral angiopathy with gangrene (principal); N18.6 End stage renal disease; I70.261 Atherosclerosis of native arteries of extremities with gangrene, right leg; I13.2 Hypertensive heart and chronic kidney disease with heart failure and with stage 5 chronic kidney disease, or end stage renal disease; I50.22 Chronic systolic (congestive) heart failure; E87.20 Acidosis, unspecified; E11.22 Type 2 diabetes mellitus with diabetic chronic kidney disease; N20.0 Calculus of kidney; I25.10 Atherosclerotic heart disease of native coronary artery without angina pectoris; D63.1 Anemia in chronic kidney disease; S91.301A Unspecified open wound, right foot, initial encounter; S91.302A Unspecified open wound, left foot, initial encounter; X58.XXXA Exposure to other specified factors, initial encounter; E78.00 Pure hypercholesterolemia, unspecified; I35.0 Nonrheumatic aortic (valve) stenosis; I70.1 Atherosclerosis of renal artery; Z79.4 Long term (current) use of insulin; Z99.2 Dependence on renal dialysis; Z79.82 Long term (current) use of aspirin; Z79.02 Long term (current) use of antithrombotics/antiplatelets; Z79.899 Other long term (current) drug therapy
CPT/HCPCS: 37230; 75625; 75716; 80048; 82962; 85027; 85610; 85730; 87070; C1725; C1760; C1769; C1874; C1894; C9765; G0257; P9047; Q9967

== ENCOUNTER → 2024-04-06 12:42 | Outpatient (REF) | payer MEDICARE, OTHER, SELFPAY | LOC: RAD 12:42 | PROVIDERS: ATTENDING PHYSICIAN Surgery Vascular Surgery; FAMILY PHYSICIAN Internal Medicine | DX: I73.9 Peripheral vascular disease, unspecified (principal) | CPT/HCPCS: 93922; 93925 ==

== ENCOUNTER 2024-04-12 13:57 | Inpatient (IN) | payer MEDICARE, OTHER, SELFPAY ==
[2024-04-12] VITALS (41 sets, daily range): BP systolic 48–169; BP diastolic 27–130; BMI 25.0; BMI 25.3
--- NOTE | 2024-04-12 08:58 | ED.GENMED ---
History of Present Illness
General
Chief Complaint: Weakness
Source: patient
Exam Limitations: none
Time Seen by Provider: 04/12/24 08:41
History of Present Illness
History of Present Illness:
73-year-old female from [facility] Friday dialysis with complaints of fatigue and not feeling well over the past 2 days. She notes headache and myalgias. She was too weak to get up and go to dialysis today. Facility noted low
blood pressure. She is prescribed midodrine of which they gave at 6 AM this morning. She notes minimal urine output recently. She also has been dealing with cellulitis to the left. She is currently on doxycycline. She notes increased pain to
the leg.
Past History
Past History
ED Past Medical History: CAD, CHF, HTN, Hypercholesterolemia, NIDDM, MD and Renal failure
ED Past Surgical History: Cholecystectomy and Gynecological
Social History
Tobacco: Former smoker
Alcohol: None
Drug: None
Personal: Single
Living: alone
Employment: Employed
Phy Exam
Physical Exam
Physical Exam:
General: Chronically ill-appearing female no acute respiratory distress
HEENT: Normocephalic atraumatic
Heart: Regular rate and rhythm
Lungs: Clear
Abdomen is soft nontender
Skin: Necrotic areas of skin to the left heel as well as distal first and second toes of the left foot. There is erythema noted to the distal left leg and the left distal leg is tender
Vascular: There is a palpable pulse of the dorsal aspect of the foot
Course
Orders/Labs/Results
Orders:
Orders
04/12/24 08:55
0.9% Sodium Chloride 1000 ml [Nss] 1,000 ml IV BOLUS
CR Foot - Left Min 3 Views Urgent
Comment:
Reason For Exam: pain/infection
Venous Doppler Lwr Ext Left [US Periph Venous LOWER Ext LT] Urgent
Comment:
Reason For Exam: swelling
04/12/24 08:56
CR Chest - 2 Views Urgent
Comment:
Reason For Exam: weakness
04/12/24 09:17
COVID-19 Antigen Urgent
Source: Nasal Swab
Comprehensive Metabolic Panel Urgent
Lactic Acid Q4H
Comment: CANCEL 2nd LACTIC ACID IF 1st LACTIC ACID IS LESS THAN 2
Blood Culture Q30M
THERESA Source: Blood/Venous
Specimen Description:
Blood Culture Q30M
THERESA Source: Blood/Venous
Specimen Description:
Influenza A+B Rapid Molecular Urgent
THERESA Source: Nasal Swab
Specimen Description:
04/12/24 10:07
Piperacillin/Tazo 3.375 Gram [Zosyn] 3.375 gram in 50 ml IV NOW
04/12/24 10:09
CT Abd/pelvis W Iv Cont Urgent
Comment:
Reason For Exam: elevated LFT, sepsis
04/12/24 10:10
Lactated Ringers [Lr] 1,000 ml IV BOLUS
04/12/24 10:19
Vancomycin [Vancocin] 1,500 mg 0.9% Sodium Chloride 500 ml [Nss] 500 ml IV NOW
04/12/24 11:18
NORepinephrine 4 MG/250 ML [Levophed] 4 mg in 250 ml IV NOW
Initial dose in mcg/min, then titrate:: 2
Titrate to keep:: MAP > 65 mmHg
Titrate by mcg/min:: 1-2 mcg/min
Frequency of titrations (minutes):: 5
Maximum dose in ICU in mcg/min:: 30
Maximum dose in IMU in mcg/min:: 8
Maximum dose in IVU in mcg/min:: 4
Begin to taper infusion when:: Remained at goal for 4hrs
Taper by mcg/min:: 1-2 mcg/min
Frequency of taper (minutes) if patient maintains goal:: 30
Taper to off?: Yes
If infusion off & no longer maintaining goal:: Contact Provider
04/12/24 11:46
Complete Blood Count/With Diff Routine
04/12/24 13:00
Lactic Acid Q4H
Comment: CANCEL 2nd LACTIC ACID IF 1st LACTIC ACID IS LESS THAN 2
Abnormal Lab Results
04/12/24 04/12/24
09:17 11:46
WBC 14.8 H 10^3/uL
(4.8-10.8)
RBC 3.59 L 10^6/uL
(4.20-5.40)
Hct 36.8 L %
(37.0-47.0)
MCV 102.5 H fL
(81.0-99.0)
MCH 33.4 H pg
(27.0-31.0)
MCHC 32.6 L g/dL
(33.0-37.0)
RDW 17.7 H %
(11.5-14.5)
MPV 10.9 H fL
(7.4-10.4)
Abs Immat Gran (auto) 0.1 H 10^3/uL
(0-0.05)
Absolute Neuts (auto) 13.5 H 10^3/uL
(1.4-6.5)
Absolute Lymphs (auto) 0.7 L 10^3/uL
(1.2-3.4)
Neutrophils % 91.4 H %
(42.2-75.2)
Lymphocytes % 4.4 L %
(20.5-51.1)
Sodium 125 L mmol/L
(135-145)
Potassium 5.6 H mmol/L
(3.5-5.1)
Chloride 97 L mmol/L
(98-107)
Carbon Dioxide 8 L* mmol/L
(22-30)
BUN 96 H mg/dl
(7-17)
Creatinine 4.5 H* mg/dL
(0.6-1.0)
Glucose 235 H mg/dl
(70-99)
Lactic Acid 3.0 H mmol/L
(0.7-2.0)
AST 632 H* U/L
(14-36)
ALT 350 H U/L
(0-35)
Alkaline Phosphatase 199 H U/L
(38-126)
Total Protein 5.6 L g/dl
(6.3-8.2)
Albumin 3.3 L g/dl
(3.5-5.0)
04/12/24 11:46
04/12/24 09:17
Vital Signs
Initial and Last Documented VS:
Initial Vital Signs
Temp Pulse Resp BP Pulse Ox
97.6 F 111 18 82/65 96
04/12/24 08:42 04/12/24 08:42 04/12/24 08:42 04/12/24 08:42 04/12/24 08:42
Last Documented Vital Signs
Temp Pulse Resp BP Pulse Ox
97.6 F 88 19 88/62 100
04/12/24 08:42 04/12/24 12:15 04/12/24 12:15 04/12/24 12:15 04/12/24 11:04
MDM/Problems Addressed
Differential Diagnosis Includes:
Patient with fatigue and myalgias. Noted to have blood pressure here 80s over 60s. She states her blood pressure is always low but this is slightly lower than normal. Midodrine was given at facility. Does not look terribly volume overloaded we
will try fluids to help her blood pressure. X-ray left foot ultrasound left leg and septic workup initiated.
*Critical Care Note
Total Time (30-74mins, 75-104mins- exclusive of procedures): Not Applicable
Update Note
Update Note:
Workup demonstrates leukocytosis with acidosis hyponatremia and elevated liver functions. She has been hypotensive here. She did receive lactated Ringer's and saline fluid bolus but will start Levophed. Vancomycin Zosyn ordered presumed sepsis is
likely related to infection of the left lower leg. CT of the abdomen was negative for acute finding. Workup and treatment with emergency room attending.
ED Attending Note
-
Portions of this chart may have been created with voice recognition software.� Occasional wrong word or��sound alike� substitutions may have occurred due to the inherent limitations of voice recognition software.
Discharge Plan
Departure
Patient Disposition: Admit
Date of Disposition: 04/12/24
Time of Disposition: 12:45
Presentation/result/management discussed w/ accepting MD/DO: Hospitalist
Discharge Problem:
Sepsis
Prescriptions:
No Action
furosemide 40 mg Tablet
80 mg PO TUTHSA@0800,1600
Rx Instructions:
, , Fri (non-dialysis days only)
acetaminophen 325 mg Tablet
650 mg PO Q6H PRN (Reason: mild pain)
trazodone 50 mg Tablet
25 mg PO HS
midodrine 5 mg Tablet
5 mg PO BID
Rx Instructions:
Hold for SBP > 140
clopidogrel 75 mg Tablet
75 mg PO DAILY
docusate sodium [Colace] 100 mg Capsule
100 mg PO DAILY
aspirin 81 mg Tablet,Chewable
81 mg PO DAILY
rosuvastatin 40 mg Tablet
40 mg PO QPM
Aquaphor Original 41 % Ointment
1 applic TOPICAL HS
cholecalciferol (vitamin D3) 25 mcg (1,000 unit) Tablet
25 mcg PO DAILY
ferrous gluconate 325 mg (36 mg iron) Tablet
325 mg PO DAILY
omega 2-bur-dsy-fish oil [Fish Oil] 1,000 (120-180) mg Capsule
1 cap PO DAILY
sacubitril-valsartan 24-26 mg Tablet
1 tab PO BID
insulin aspart U-100 100 unit/mL Solution
1 sliding scale dose SC DIRECTED
Patient Comments:
BG 150-200= 1 unit, 201-250=2 units, 251-300=3 units, 301-350=4 units, 351-400=5 units, >400 = 6 units
metoprolol succinate [Toprol XL] 25 mg Tablet Extended Release 24 Hr
25 mg PO DAILY
sevelamer carbonate 800 mg Tablet
800 mg PO MEALS
glucagon HCl [Glucagon (HCl) Emergency Kit] 1 mg Recon Soln
1 mg SC Q15M PRN (Reason: hypoglycemia)
doxycycline hyclate 100 mg capsule
100 mg PO BID
Rx Instructions:
04/12/24: start 04/07/24 x 10 days
Referrals:
José Antonio Gage I., DO [Family Provider] -
Interventions
Interventions:
*Risk Screen - Suicide Last Done: 04/12/24 08:42
*General Assessment Last Done: 04/12/24 08:42
*Neglect/Abuse Screening Last Done: 04/12/24 08:42
*ED COVID-19 Vaccine History Last Done: 04/12/24 08:42
ED- Cardiac Assessment Last Done: 04/12/24 08:42
ED- Neurological Assessment Last Done: 04/12/24 08:42
ED- Pulmonary Assessment Last Done: 04/12/24 08:42
Discharge Date and Time
Print Language: ITALIAN
[2024-04-12] MEDS: NSS 1000 IV (09:15)
[2024-04-12 09:42] LABS: COVID-19 Antigen Negative (Negative)
[2024-04-12 09:57] LABS: ALT (SGPT) 350 U/L (0-35); AST (SGOT) 632 U/L (14-36); Albumin 3.3 g/dl (3.5-5.0); Alkaline Phosphatase 199 U/L (38-126); Blood Urea Nitrogen 96 mg/dl (7-17); Carbon Dioxide 8 mmol/L (22-30); Chloride 97 mmol/L (98-107); Estimated Creatinine Clearance 8 ml/min; Glucose 235 mg/dl (70-99); Potassium 5.6 mmol/L (3.5-5.1); Sodium 125 mmol/L (135-145); Total Bilirubin 0.7 mg/dl (0.2-1.3); Total Protein 5.6 g/dl (6.3-8.2); eGFR 9.66
[2024-04-12] MEDS: ZOSYN 50 IV (11:05)
[2024-04-12] MEDS: VANCOCIN 530 MG IV (11:50)
[2024-04-12] MEDS: LR 1000 IV (11:50)
[2024-04-12] MEDS: LEVOPHED 250 IV ×3 (11:58→23:57)
[2024-04-12 12:00] LABS: % Basophils 0.1 % (0-2); % Immature Granulocytes 0.5 % (0-0.5); % Lymphocytes 4.4 % (20.5-51.1); % Monocytes 3.6 % (1.7-9.3); % Neutrophils 91.4 % (42.2-75.2); Absolute Immature Granulocytes 0.1 10^3/uL (0-0.05); Absolute Lymphocytes 0.7 10^3/uL (1.2-3.4); Absolute Monocytes 0.5 10^3/uL (0.1-0.6); Absolute Neutrophils 13.5 10^3/uL (1.4-6.5); Hematocrit 36.8 % (37.0-47.0); Mean Corp Hgb Conc. 32.6 g/dL (33.0-37.0); Mean Corpuscular Hgb 33.4 pg (27.0-31.0); Mean Corpuscular Volume 102.5 fL (81.0-99.0); Mean Platelet Volume 10.9 fL (7.4-10.4); Nucleated Red Blood Cells % 0.2 %; Platelet Count 214 10^3/uL (130-400); Red Blood Cell Count 3.59 10^6/uL (4.20-5.40); Red Cell Dist. Width 17.7 % (11.5-14.5); White Blood Cell Count 14.8 10^3/uL (4.8-10.8)
--- NOTE | 2024-04-12 12:51 | HPS.HSE ---
Family Physician
-
Family Physician: José Antonio Gage
Chief Complaint
-
Left lower extremity pain, gangrene to foot
History of Present Illness
73-year-old female from [facility] with left lower extremity pain and cellulitis to his legs that has been ongoing for the past several days. Patient has a gangrenous left heel with tips of toes purpleish in color especially great
first toe. Tenderness along medial aspect of left leg to upper thigh with slight erythema in the upper thigh next to knee area.
She is currently on doxycycline. History of dialysis Friday via right upper chest wall port. She reports they have tried to put AV fistulas in but have been on successful.
The patient had left heel gangrene with peripheral arterial occlusive disease, chronic limb threatening ischemia 03/05/2024 status post intravascular lithotripsy to left superficial femoral artery popliteal artery, balloon angioplasty/drug-eluting
stents left popliteal and superficial femoral artery, balloon angioplasty below-knee popliteal, stenting of left anterior tibial artery with diagnostic aorto bili attic arteriogram.
He has past medical history of ESRD dialysis Friday, CAD/PA/cardiac stents, former smoker orthostatic hypotension, essential HTN, severe PAD left leg with multiple stents, HLD, DM2, anemia of chronic disease, memory impairment,
chronic ambulatory dysfunction, carotid stenosis, CHF hyperparathyroidism. Hearing impaired left from childhood, Nonnrheumatic aortic valve stenosis, Vertigo, pleural effusion Per long term chart, ? Skin CA removal to nose, Insomnia
Medical History
Past Medical History
Past Medical History: Reports Other
Additional Past Medical History:
ESRD dialysis Friday
anemia of chronic disease
Memory impairment per patient reported
COVID-30 October 2023
Chronic ambulatory dysfunction
PVD
Carotid stenosis
CHF unknown type
HTN
HLD
DM2/diabetic retinopathy
Hyperparathyroidism
Hearing impaired left from childhood
Nnonrheumatic aortic valve stenosis
Vertigo
pleural effusion Per long term chart
? Skin CA removal to nose
Past Surgical History: Reports Other
Additional Past Surgical History:
Left ear surgery
03/05/2024 Hx left heel gangrene with PAD status post life threatening limb ischemia 03/05/2024 stent left superficial femoral artery, popliteal artery left anterior tibial artery and balloon angioplasty below-knee popliteal
Social History
Tobacco: Non-smoker
Alcohol: None
Drug: None
Personal: Single
Living: With Family (Lives upstairs above her sister Mona)
Employment: Retired
Family History
Family History: Unable to Obtain
Allergies / Home Medications
Allergies reflects when Allergies were last updated in [employer].
Home Medications with original date entered in [employer]
Allergy/Medication List:
Allergies
Allergy/AdvReac Type Severity Reaction Status Date / Time
No Known Allergies Allergy Unverified 10/24/23 14:48
Home Medications
acetaminophen 325 mg tablet 650 mg PO Q6H PRN mild pain 12/27/23
aspirin 81 mg chewable tablet 81 mg PO DAILY 12/27/23
cefadroxil 500 mg capsule 500 mg PO MOWEFR 12/27/23
cholecalciferol (vitamin D3) 25 mcg (1,000 unit) tablet 25 mcg PO DAILY 12/27/23
clopidogrel 75 mg tablet 75 mg PO DAILY 12/27/23
docusate sodium 100 mg capsule (Colace) 100 mg PO DAILY 12/27/23
ferrous gluconate 325 mg (36 mg iron) tablet 325 mg PO DAILY 12/27/23
furosemide 40 mg tablet 80 mg PO BID 12/27/23
guaifenesin 100 mg/5 mL oral liquid 200 mg PO Q8H PRN cough 12/27/23
metoprolol succinate 25 mg tablet,extended release 24 hr 25 mg PO DAILY 12/27/23
midodrine 5 mg tablet 5 mg PO BID 12/27/23
omega 7-adm-dbi-fish oil 1,000 mg (120 mg-180 mg) capsule (Fish Oil) 1 cap PO DAILY 12/27/23
ondansetron HCl 4 mg tablet 4 mg PO Q6H PRN nausea 12/27/23
rosuvastatin 40 mg tablet 40 mg PO DAILY 12/27/23
sacubitril 24 mg-valsartan 26 mg tablet 1 tab PO BID 12/27/23
trazodone 50 mg tablet 25 mg PO HS 12/27/23
white petrolatum 41 % topical ointment (Aquaphor Original) 1 applic topical DAILY PRN itching 12/27/23
Review of Systems
-
History Source: Patient
A 12 point ROS was completed and negative except as noted: Yes
Constitutional: Denies Fever or Chills
EENT: Denies Sore Throat or Runny Nose
Respiratory: Denies Cough or Trouble Breathing
Cardiac: Denies Chest Pain, Diaphoresis, Palpitations or Syncope
Abdomen/GI: Reports Abdominal Pain (Right upper quadrant, epigastric); Denies Nausea, Vomiting, Diarrhea, Constipated, Bloody Stools or Black Stools
: Denies Dysuria
Musculoskeletal: Reports Other (Pain to left lower extremity with slight erythema upper thigh, cold extremity from thigh to foot, purpleish distal aspects of toe with right great toe tip gangrene, gangrenous large area to left heel); Denies Joint
Pain
Skin: Reports Other (Dialysis cath right upper chest ); Denies Itching or Rash
Neurological: Denies Dizzy or Headache
Endocrine: Reports No Symptoms
Hematologic/Lymphatic: Reports No Symptoms
Psych: Reports Calm
Physical Exam
Vital Signs
Vital Signs
Temp Pulse Resp BP Pulse Ox
97.6 F 83 19 74/54 100
04/12/24 08:42 04/12/24 12:45 04/12/24 12:45 04/12/24 12:31 04/12/24 11:04
Physical Exam
General: Comfortable and Conversant; No Fever or Chills
HEENT: NormoCephalic, Anicteric, Moist mucous membranes, PERRLA, Marsing Conjunctivae and No Ptosis
Respiratory: Clear; No Wheezes, Rales or Rhonchi
Cardiac: S1/S2 and Regular Rhythm; No Murmur, Rub or Gallop
Breast: Deferred by me
GI: Soft, Non Distended, Normal Bowel Sounds and Tender (Right upper quadrant, epigastric)
Genito-urinary: Deferred by me
Musculoskeletal: No Clubbing and Edema, Left Lower Extremity (Pain to left lower extremity with slight erythema upper thigh, cold extremity from thigh to foot, purpleish distal aspects of toe with right great toe tip gangrene, gangrenous large area
to left heel); No Edema, Left Upper Extremity, Edema, Right Upper Extremity or Edema, Right Lower Extremity
Skin: Warm, Dry and IV/Catheter Site (Dialysis port right upper chest wall); No Rash, Jaundice or Ulcers
Neuro: AO x 3 (Is forgetful know his name, place, current place of living, some of history) and No Sensory Deficits; No Slurred Speech, Facial Droop, Tremors or Sedated
Psych: Calm
Laboratory Results
-
04/12/24 11:46
04/12/24 09:17
Laboratory Results
Lactic Acid 3.0 mmol/L (0.7-2.0) H 04/12/24 09:17
Total Bilirubin 0.7 mg/dl (0.2-1.3) 04/12/24 09:17
AST 632 U/L (14-36) H* 04/12/24 09:17
ALT 350 U/L (0-35) H 04/12/24 09:17
Alkaline Phosphatase 199 U/L (38-126) H 04/12/24 09:17
Data Reviewed
-
Lab Data: Labs Reviewed by me
Impression/Plan
-
Impression/plan:
Admit to ICU
#Septic shock secondary to LLE CRITICAL LIMB ISCHEMIA Necrotic HEEL/history severe PAD recent stenting due to limb ischemia 03/05/2024
03/05/2024 Hx left heel gangrene with PAD status post life threatening limb ischemia 03/05/2024 stent left superficial femoral artery, popliteal artery left anterior tibial artery and balloon angioplasty below-knee popliteal
COVID and flu negative
Impression for WBC 14.8 with left shift, HR 83, 97.6F
Lactic acid 3 will trend
-N.p.o. last meal was 8 AM 04/12/2024 'cream of wheat and water' for breakfast
1 L LR given
-IV Levophed
-Blood cultures x 2
-IV vancomycin IV Zosyn was given in ER
-Will give IV vancomycin, IV meropenem
-Continue sodium bicarb in sterile water 150 mill equivalent 80 cc an hour
-Consult night stocker
-Consult infectious disease
-Consult vascular surgery
-Hold Plavix 75 mg daily, aspirin 81 mg daily
Left foot x-ray:No recent cortical fracture or radiographic findings to suggest focal cortical bony destructive process.
Degenerative changes.
Left lower extremity ultrasound: Negative for DVT
CXR: Likely cardiomegaly mild, no acute pulmonary process
#Acute hypotension secondary to septic shock
Hx HTN�benign//history of orthostatic hypotension
Lactic acid 3 will trend
-1 L LR given in the ER
-
-IV Levophed
-Continue sodium bicarb in sterile water 150 mill equivalent 80 cc an hour
-Hold current midodrine 5 mg twice daily as needed
-Hold sacubitril�valsartan 1 tab twice daily, metoprolol 25 XL daily
#Acute transaminitis likely reactive due to septic shock
AST 632, ALT 350, alk phos 199
-Check hepatitis panel
-Check lipid profile
-Consult GI
CT abdomen pelvis with IV contrast:
1. No findings to suggest biliary tract dilation
2. Mild hepatomegaly. Mild immediate postcontrast hepatic heterogeneous opacification and periportal hypodensity seen on delayed postcontrast imaging
could represent acute hepatocellular process such as HEPATITIS periportal hypodensity may be reflective intravenous hydration
3. Small hypodense right lobe and left lobe hepatic lesions too small to characterize
4. Marked atrophic left kidney with staghorn calculus and dialysis patient
5 Patent proximal RIGHT RENAL ARTERY STENT, mid to distal right renal artery narrowing caliber.
Several areas of scattered immediate postcontrast hypodensity within the right kidney, especially posteriorly, cannot exclude some right renal infarcts. Some right renal atrophy noted.
6. Small volume abdominal and small to moderate volume pelvic ascites.
#Acute hyperkalemia
K5.6 patient given LR 1 L
Will follow BMP
#ESRD dialysis Friday
Right upper chest dialysis graft
-Consult Nephro
-- CONT SEVELMER Carbonate 800 mg with meals
#Acute hyponatremia
NA 125 Nephro aware states due to volume with dialysis
Will follow BMP
#DM2 with mild hyperglycemia/diabetic neuropathy Hx
BS 235, Accu-Cheks with SSI, check HgbA1c
#CHF unknown type
I/O, daily weights
Hold Lasix 80 mg Friday
#HLD
-Hold rosuvastatin 40 mg every afternoon
#Anemia of chronic disease
Hgb 12
# Chronic memory impairment per patient reported
#Chronic ambulatory dysfunction
PT/OT/case management eval
Carotid stenosis
-Hold statin due to transaminitis
Other PMH:
COVID-30 October 2023
Hyperparathyroidism
Hearing impaired left from childhood
Nnonrheumatic aortic valve stenosis
Vertigo
pleural effusion Per long term chart
? Skin CA removal to nose
#Insomnia
Trazodone 25 mg at bedtime hold for sedation
dVT
-Heparin SQ twice daily
DNR per patient and per chart from [facility]
--- NOTE | 2024-04-12 13:33 | W.PN.UPDATE ---
Addendum entered and electronically signed by Maxi Dong MD 04/12/24 13:56:
ADDENDUM: case dw Renal for Septi fluid
DC'd LR IV due to hi K
HCO3 gtt ( 150 mEq in sterile water ) rate 80/H
Original Note:
Update Note
Progress Note Update
This note serves as an addendum to the H&P by verifying machine operator LANDY
Keena MAGGIE
HPI
73F multiple medical conditions including ESRD , CHD MWF, hypertension, bilateral renal artery stenosis, chr HFrEF , DMT2, CAD, and peripheral arterial disease, b.l non heaking fot wound, pw fatigue and not feeling well over the past 2 days. Plus
headache and myalgias. She was too weak to get up and go to dialysis today. Facility noted low blood pressure. She is prescribed midodrine of which they gave at 6 AM this morning. She notes minimal urine output recently. She also has been
dealing with cellulitis to the left. She is currently on doxycycline.
HX increased pain to the LLEX pain
Recently on 03/06/24 s/p LLE angiogram, balloon angioplasty + stenting of L SFA, L AT
Multiple Ingrid stent
PHX
VSS
04/12/24
08:42
Temp 97.6 F
Pulse 111
Resp Rate 18
Blood pressure 82/65
SaO2 96
Oxygen Mode of Delivery Room air
PE
Foul smelling odour noted in the room
Gen: chronically ill-appearing
HEENT: anicteric , poor dental hygene
Neck: supple
Lungs: clear
Cor: RRR S1 S2
Abdomen: soft and benign
DATABASE ADMINISTRATION ASSOCIATE:alert , awake
Skin & MS:
Necrotic areas of skin to the left heel as well as distal first and second toes of the left foot.
There is erythema noted to the distal left leg and the left distal leg is tender
Vascular: There is a palpable pulse of the dorsal aspect of the foot
Psych:
12/28/23 03/06/24 04/12/24
05:37 06:44 09:17
WBC
Hgb 9.5 L
MCV
Plt Count
Sodium 125 L
Potassium 5.6 H
Chloride 97 L
Carbon Dioxide 8 L*
BUN 96 H
Creatinine 4.5 H*
ALT 11 350 H
AST 632 H*
Alkaline Phosphatase 199 H
Total Protein 5.6 L
Albumin 3.3 L
SARS-CoV-2 Antigen Negative
04/12/24
11:46
WBC 14.8 H
Hgb 12.0
MCV 102.5 H
Plt Count 214
Sodium
Potassium
Chloride
Carbon Dioxide
BUN
Creatinine
ALT
AST
Alkaline Phosphatase
Total Protein
Albumin
SARS-CoV-2 Antigen
BCx sent
04/12/24 US Lt Ingrid
- No evidence of deep venous thrombosis of the left lower extremity.
04/12/24 Lt foot XR
No recent cortical fracture or radiographic findings to suggest focal cortical bony destructive process.
Degenerative changes.
04/12/24 CXR
Likely mild cardiomegaly.
No acute pulmonary process.
04/12/24 CT Abd/pelvis W Iv Cont
Prior cholecystectomy. No findings to suggest biliary tract dilatation.
Mild hepatomegaly. Mild immediate postcontrast hepatic heterogeneous opacification and some periportal hypodensity seen on delayed postcontrast imaging. The combination of these findings could represent acute hepatocellular process such as
hepatitis. Periportal hypodensity may be reflective of intravenous hydration.
Small hypodense right lobe and left lobe hepatic lesions too small to characterize, as detailed above.
Markedly atrophic left kidney with staghorn calculus in this dialysis dependent patient.
Grossly patent proximal right renal artery stent, mid to distal right renal artery narrowing caliber. Several areas of scattered immediate postcontrast hypodensity within the right kidney, especially posteriorly, cannot exclude some right renal
infarcts. Some right renal atrophy noted.
Small volume abdominal and small to moderate volume pelvic ascites.
04/06/24 Periph Art LOWER Ext w NAMRATA
RIGHT LOWER EXTREMITY:
- NAMRATA within normal limits at 1.22.
- TBI within normal limits at 0.70. Both are stable from prior.
- Arterial duplex examination reveals multiphasic waveforms from the common femoral artery through the popliteal artery with no focal velocity elevations to suggest significant stenosis.
- SFA stents are patent.
LEFT LOWER EXTREMITY:
- NAMRATA likely falsely elevated at 1.55 (prior 0.35).
- TBI 0.94 (prior 0).
- Arterial duplex examination reveals multiphasic waveforms from the common femoral artery through the popliteal artery with no focal velocity elevations to suggest significant stenosis.
- SFA stents are patent.
12/30/23 CC
Last admission: to vascular service Date of Admission: 03/05/24 -Date of Discharge: 03/06/24
Discharge Diagnosis/Procedures: LLE angiogram, balloon angioplasty + stenting of L SFA, L AT
ASSESSMENT & PLAN
Septic shock s/p LR 1 000 cc given at ER: s/p first dose of IV Vanc and Zosyn
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
HX multiple Lt INGRID stent ( 03/05/24)
03/06/24 : LLE angiogram, balloon angioplasty + stenting of L SFA, L AT
HX Nonhealing bilateral foot wound
HX dry gangrenous heel ulcers-swab with Betadine daily.
Dry gangrenous ulcers bilateral great toe, R 5th toe
- f/u BCx
- Hold Frusemide
- Hold metoprolol XL
- Hold Entresto
- On pressor; NE gtt
- add IV Meropenem plus cont IV Vancomycin
- stop Zosyn
- Urgent Vascular consult by ER
- ID consult
- Area Forester consult
Shock liver / AILI
Significant ly elevated transaminitis. Nl TB
- Hold Statin
- Trend LFTs
- GI consult
Severe hyponatremia
Suspect contracted volume
- f/u Na s/p septic fluid bolus
- await Renal consult
ESRD
HD on MWF
Metabolic acidosis
Associated with ACdz
HX failed right upper extremity AV fistula
HX bilateral renal artery stenosis
HX nephrolithiasis, staghorn calculus
HX hypotension on Midodrine BID
- HD on MWF
- Renal consult
HX Chr HFrEF
- Hold Lasix
- hold Entresto
- mange Vol by HD
IrDMT2
- ISS low
HLD
- Hold statin
DVT Px: SQH
Full code
ICU
Total Critical Care Time__65___ minutes.
I was immediately available to the patient and staff. I personally examined, reviewed labs, diagnostic images/reports, interpretations, treatment plans, discussed patient care with other providers and family or caregivers (if patient is unable to
make decisions), entered orders as appropriate and documented the medical record.
--- NOTE | 2024-04-12 13:56 | W.CON.NEPH ---
Consultation
-
Date/Time Consultation Requested: 04/12/24 1pm
Date/Time Consultation Performed: 04/12/24 2pm
Requesting Provider: Dr Dong
Performing Provider: Dr Tucker
Reason for Consultation: ESRD
Medical History
-
Chief Complaint: Sepsis
History of Present Illness:
This is a 73-year-old female who has ESRD on dialysis at [facility] Fr[facility]. She had previously been dialyzing at [facility]. She is at [facility] for rehab. She has hypertension on a multidrug regimen. He also has
heart failure with reduced ejection fraction on Entresto and is compensated. She has hyperlipidemia controlled statin therapy. She has had poorly healing wounds in her lower legs particularly in the right fifth digit as well as the left heel. She
was in the hospital 04/06/24 and underwent angiogram and stenting in the left leg. She returns for abdominal pain and Nausea/vomiting. She was noted to be hypotense and was placed on levophed. She is critically ill and going to ICU. she did not
receive HD today.
Past Medical History
ESRD, failed right upper extremity AV fistula, hypertension, bilateral renal artery stenosis, heart failure reduced ejection fraction, diabetes mellitus type II, coronary artery disease, Mohs surgery for the nose for basal cell carcinoma,
nephrolithiasis, LLE stenting
Social History
Tobacco: Non-Smoker
Alcohol: None
Family History
CKD in a sister
Allergies / Home Medications
Allergy/AdvReac Type Severity Reaction Status Date / Time
No Known Allergies Allergy Verified 03/05/24 07:30
�Medication �Instructions �Recorded �Confirmed �Type
acetaminophen 325 mg tablet 650 mg PO Q6H PRN mild pain 12/27/23 04/12/24 History
aspirin 81 mg chewable tablet 81 mg PO DAILY Blood Clot 12/27/23 04/12/24 History
Prevention/Tx
cholecalciferol (vitamin D3) 25 25 mcg PO DAILY Supplement 12/27/23 04/12/24 History
mcg (1,000 unit) tablet
clopidogrel 75 mg tablet 75 mg PO DAILY Blood Clot 12/27/23 04/12/24 History
Prevention/Tx
docusate sodium 100 mg capsule 100 mg PO DAILY Constipation 12/27/23 04/12/24 History
(Colace)
ferrous gluconate 325 mg (36 mg 325 mg PO DAILY 12/27/23 04/12/24 History
iron) tablet
furosemide 40 mg tablet 80 mg PO TUTHSA@0800,1600 Fluid 12/27/23 04/12/24 History
Retention/Swelling
midodrine 5 mg tablet 5 mg PO BID SBP > 140 12/27/23 04/12/24 History
omega 3-fwu-xdj-fish oil 1,000 mg 1 cap PO DAILY Supplement 12/27/23 04/12/24 History
(120 mg-180 mg) capsule (Fish Oil)
rosuvastatin 40 mg tablet 40 mg PO QPM High Cholesterol 12/27/23 04/12/24 History
sacubitril 24 mg-valsartan 26 mg 1 tab PO BID Heart Failure 12/27/23 04/12/24 History
tablet
trazodone 50 mg tablet 25 mg PO HS Sleep 12/27/23 04/12/24 History
white petrolatum 41 % topical 1 applic topical HS facial itching 12/27/23 04/12/24 History
ointment (Aquaphor Original)
glucagon HCl 1 mg solution for 1 mg SC Q15M PRN hypoglycemia 03/02/24 04/12/24 History
injection (Glucagon (HCl)
Emergency Kit)
insulin aspart U-100 100 unit/mL 1 sliding scale dose SC DIRECTED 03/02/24 04/12/24 History
subcutaneous solution
metoprolol succinate 25 mg 25 mg PO DAILY hold if SBP <110, 03/02/24 04/12/24 History
tablet,extended release 24 hr HR <60
(Toprol XL)
sevelamer carbonate 800 mg tablet 800 mg PO MEALS RENAL 03/02/24 04/12/24 History
doxycycline hyclate 100 mg capsule 100 mg PO BID Infection 04/12/24 04/12/24 History
ondansetron HCl 4 mg tablet 4 mg PO Q6HPRN PRN nausea/vomiting 04/12/24 04/12/24 History
Review of Systems
-
nausea
All other systems: Negative unless noted
Physical Exam
Vital Signs
Vital Signs
Temp Pulse Resp BP Pulse Ox
97.6 F 81 19 102/84 100
04/12/24 08:42 04/12/24 13:15 04/12/24 13:15 04/12/24 13:15 04/12/24 11:04
Lab Results
WBC 14.8 10^3/uL (4.8-10.8) H 04/12/24 11:46
RBC 3.59 10^6/uL (4.20-5.40) L 04/12/24 11:46
Hgb 12.0 g/dL (12.0-16.0) 04/12/24 11:46
Hct 36.8 % (37.0-47.0) L 04/12/24 11:46
Plt Count 214 10^3/uL (130-400) 04/12/24 11:46
Sodium 125 mmol/L (135-145) L 04/12/24 09:17
Potassium 5.6 mmol/L (3.5-5.1) H 04/12/24 09:17
Chloride 97 mmol/L (98-107) L 04/12/24 09:17
Carbon Dioxide 8 mmol/L (22-30) L* 04/12/24 09:17
BUN 96 mg/dl (7-17) H 04/12/24 09:17
Creatinine 4.5 mg/dL (0.6-1.0) H* 04/12/24 09:17
eGFR 9.66 04/12/24 09:17
Glucose 235 mg/dl (70-99) H 04/12/24 09:17
Calcium 9.0 mg/dl (8.4-10.2) 04/12/24 09:17
Albumin 3.3 g/dl (3.5-5.0) L 04/12/24 09:17
Laboratory Tests
03/06/24 04/12/24 04/12/24
06:44 09:17 13:06
Hgb 9.5 L
Lactic Acid 10.0 H*
AST 632 H*
ALT [address] AP 04/12/24
IMPRESSION:
Prior cholecystectomy. No findings to suggest biliary tract dilatation.
Mild hepatomegaly. Mild immediate postcontrast hepatic heterogeneous opacification and some periportal hypodensity seen on delayed postcontrast imaging. The combination of these findings could represent acute hepatocellular process such as
hepatitis. Periportal hypodensity may be reflective of intravenous hydration.
Small hypodense right lobe and left lobe hepatic lesions too small to characterize, as detailed above.
Markedly atrophic left kidney with staghorn calculus in this dialysis dependent patient.
Grossly patent proximal right renal artery stent, mid to distal right renal artery narrowing caliber. Several areas of scattered immediate postcontrast hypodensity within the right kidney, especially posteriorly, cannot exclude some right renal
infarcts. Some right renal atrophy noted.
Small volume abdominal and small to moderate volume pelvic ascites.
Physical Exam
Patient is awake alert oriented and in no distress. Mood and affect were pleasant, insight and judgment were good. Pupils are equal round and reactive to light, extraocular movements are intact, sclera were anicteric. Hearing was normal, ears and
nose are intact. Oropharynx was clear. Neck was supple with trachea midline and no thyromegaly. Heart was regular rate and rhythm without rubs. Lower extremities with 2+left leg edema. Lungs were clear to auscultation bilaterally and with normal
excursion. Abdomen was soft, nontender, with normal active bowel sounds, and no hepatosplenomegaly. Skin was without rash and with normal turgor.
Data Reviewed
-
Radiology: Image Personally Visualized and interpreted (CXR 04/12/24 by my reading no acute disease)
CT Scan: Report Reviewed by me
Labs: Labs Reviewed by me
Old Records: Reviewed
Assessment/Plan
-
Assessment
ESRD
Heart failure reduced ejection fraction
Diabetes mellitus type 2
Nephrolithiasis, staghorn calculus
Severe atherosclerotic vascular disease
Coronary artery disease
Nonhealing bilateral foot wound
Metabolic acidosis
lactic acidosis
Anemia
Status post angioplasty stenting left leg 04/06/24
Ligated right upper extremity AV fistula due to steal
sepsis
shock liver
Plan:
ICU
keep MAP > 65 with pressors
May need CRRT given increasing pressor requirements
follow BMP
follow lactate
await cx
empiric broad spectrum abx
critical care time 45 minutes
--- NOTE | 2024-04-12 13:58 | CON.VAS ---
Addendum entered and electronically signed by JAMES Gonzalez 04/12/24 16:21:
Reviewed HPI, physical exam, lab values, and review of systems with attending Dr. Magdi Barone, he agrees with continued primary team's septic workup. Unclear if source would be either bilateral foot wounds as they are chronic and appear unchanged
from pictures obtained in the outpatient setting on 04/06/2024. They continue to be dry gangrene with no malodor or drainage. Surgical plan per attending. I performed this shared service with the attending. I evaluated the patient [id number] and
have entered clinical documentation as shown in the encounter note. I performed the following component(s):�history and physical exam. Note that medical decision making is not final until attested by vascular attending.
Original Note:
Consultation
Consultation Request
Date/Time Consultation Performed: 04/12/24 1400
Requesting Provider: Hospitalist
Performing Provider: Rosie Louis, TOWER SWITCH OPERATOR-C for Magdi Barone III, MD
Reason for Consultation: Sepsis in the setting of chronic left lower extremity heel wound
Medical History
-
Chief Complaint: Lethargy, left lower extremity pain
History of Present Illness:
This is a 73-year-old female with past medical history of CHF, hypertension, diabetes, ESRD (MWF HD), aortic valve stenosis, anemia, carotid stenosis, peripheral arterial disease, hyperlipidemia, and hearing impairment who presented to outside
hospital from [facility] facility with reports of increased lethargy, headache, decreased urine output, and increasing pain to left lower extremity. Patient has a history of chronic bilateral foot wounds with peripheral arterial disease. Patient
is known to our vascular surgical group for various interventions for her peripheral arterial disease, please see surgical history below. She is a poor historian with reports of memory impairment via chart review. She does endorse that recently
she has been experiencing increased fatigue/malaise to the point where she did not have the energy to attend her HD session, she also notes increasing pain to the left foot over the past several days. Review of ED documentation notes that she was
started on midodrine and p.o. doxycycline in the outpatient setting for suspected left lower extremity cellulitis. She denies nausea, vomiting, fever, and chills. Does endorse increased pain to left foot particularly with palpation/touch. Patient
recently underwent endovascular intervention at left lower extremity with Dr. Magdi Barone on 03/05/2024, she followed up as scheduled in the office on 04/08/24 and reported unchanged dry gangrene to left heel and well-managed pain. She also had
postoperative arterial ultrasound with NAMRATA/TBI obtained on 04/06/2024 per protocol which noted multiphasic waveforms from common femoral artery through the popliteal artery with no focal elevations and patent SFA stents; additionally TBI increased
from 0 (prior to intervention) to 0.94. Her pulse exam on the left foot is unchanged from postoperative with palpable left DP pulse.
Vascular surgical history:
03/05/2024- Intravascular lithotripsy to left superficial femoral artery and popliteal artery using shockwave javelin catheter, balloon angioplasty and drug-eluting stents to left popliteal artery and superficial femoral artery (Zilver PTX: 6 mm x
140 mm (x2), 6 mm x 100 mm), balloon angioplasty of below-knee popliteal artery (4 mm angioplasty balloon), balloon angioplasty and stenting of left anterior tibial artery (3 mm x 38 mm Contreras Esprit; postdilated with a 3 mm noncompliant balloon),
diagnostic left lower extremity arteriogram Dr. Magdi Barone III
01/01/2024- Ultrasound-guided percutaneous thrombin injection to left femoral artery pseudoaneurysm Dr. Magdi Barone III
12/30/2023- Intravascular lithotripsy to right superficial femoral artery/popliteal artery using Shockwave Javelin catheter, drug-coated balloon angioplasty of right superficial femoral artery and popliteal artery (5 mm x 300 mm Lutonix), balloon
angioplasty and stenting of right superficial femoral artery and popliteal artery using overlapping LifeStents: 6 mm x 60 mm distal; 6 mm x 80 mm; 6 mm x 150 mm; 6 mm x 40 mm proximal), intravascular lithotripsy to right anterior tibial artery
stenosis (3 mm x 80 mm E8 shockwave balloon), diagnostic BILATERAL lower extremity arteriogram Dr. Magdi Barone III
Right foot hallux and fifth digit dry gangrene
Left heel dry gangrene
Past Medical History
Past Medical History: CHF, HTN, IDDM, Renal Failure (ESRD (MWF)), Valvular Disease (Nnonrheumatic aortic valve stenosis) and Other (anemia, memory impairment, peripheral arterial disease, carotid stenosis, hyperlipidemia, hearing impairment, vertigo)
Social History
Tobacco: Non-Smoker
Alcohol: None
Drug: None
Personal: Single
Living: [facility]
Allergies / Home Medications
Allergy/AdvReac Type Severity Reaction Status Date / Time
No Known Allergies Allergy Verified 03/05/24 07:30
�Medication �Instructions �Recorded �Confirmed �Type
acetaminophen 325 mg tablet 650 mg PO Q6H PRN mild pain 12/27/23 04/12/24 History
aspirin 81 mg chewable tablet 81 mg PO DAILY Blood Clot 12/27/23 04/12/24 History
Prevention/Tx
cholecalciferol (vitamin D3) 25 25 mcg PO DAILY Supplement 12/27/23 04/12/24 History
mcg (1,000 unit) tablet
clopidogrel 75 mg tablet 75 mg PO DAILY Blood Clot 12/27/23 04/12/24 History
Prevention/Tx
docusate sodium 100 mg capsule 100 mg PO DAILY Constipation 12/27/23 04/12/24 History
(Colace)
ferrous gluconate 325 mg (36 mg 325 mg PO DAILY 12/27/23 04/12/24 History
iron) tablet
furosemide 40 mg tablet 80 mg PO TUTHSA@0800,1600 Fluid 12/27/23 04/12/24 History
Retention/Swelling
midodrine 5 mg tablet 5 mg PO BID SBP > 140 12/27/23 04/12/24 History
omega 4-pfa-gpl-fish oil 1,000 mg 1 cap PO DAILY Supplement 12/27/23 04/12/24 History
(120 mg-180 mg) capsule (Fish Oil)
rosuvastatin 40 mg tablet 40 mg PO QPM High Cholesterol 12/27/23 04/12/24 History
sacubitril 24 mg-valsartan 26 mg 1 tab PO BID Heart Failure 12/27/23 04/12/24 History
tablet
trazodone 50 mg tablet 25 mg PO HS Sleep 12/27/23 04/12/24 History
white petrolatum 41 % topical 1 applic topical HS facial itching 12/27/23 04/12/24 History
ointment (Aquaphor Original)
glucagon HCl 1 mg solution for 1 mg SC Q15M PRN hypoglycemia 03/02/24 04/12/24 History
injection (Glucagon (HCl)
Emergency Kit)
insulin aspart U-100 100 unit/mL 1 sliding scale dose SC DIRECTED 03/02/24 04/12/24 History
subcutaneous solution
metoprolol succinate 25 mg 25 mg PO DAILY hold if SBP <110, 03/02/24 04/12/24 History
tablet,extended release 24 hr HR <60
(Toprol XL)
sevelamer carbonate 800 mg tablet 800 mg PO MEALS RENAL 03/02/24 04/12/24 History
doxycycline hyclate 100 mg capsule 100 mg PO BID Infection 04/12/24 04/12/24 History
ondansetron HCl 4 mg tablet 4 mg PO Q6HPRN PRN nausea/vomiting 04/12/24 04/12/24 History
Review of Systems
-
History Source: Patient
Constitutional: Reports Fatigue
EENT: Reports No Symptoms
Respiratory: Reports No Symptoms
Cardiac: Reports No Symptoms
Vascular: Reports Other (Left foot ongoing pain)
Abdomen/GI: Reports No Symptoms
: Reports No Symptoms
Musculoskeletal: Denies Edema
Skin: Reports Other (Chronic left heel wound and right hallux and fifth digit wound)
Neurological: Reports No Symptoms
Endocrine: Reports No Symptoms
Physical Exam
Vital Signs
Temp Pulse Resp BP Pulse Ox
97.6 F 81 19 102/84 100
04/12/24 08:42 04/12/24 13:15 04/12/24 13:15 04/12/24 13:15 04/12/24 11:04
Lab Results
04/12/24 11:46
04/12/24 09:17
Physical Exam
General: No Apparent Distress
HEENT: Normocephalic, Anicteric and Atraumatic
Respiratory: Non Labored Respirations
Cardiac: Negative JVD
GI: Soft, Non Tender and Non Distended
Musculoskeletal: No Edema
Skin: Other
Neuro: AO x 3
Pulses: Bilateral Femoral: +2, Left Dorsalis Pedis: +1 and Right Dorsalis Pedis: Doppler
Assessment / Plan
-
Assessment: 73-year-old female presents with sepsis and chronic left heel wound and right foot hallux and fifth digit wound
Plan:
Admitted to hospitalist team for sepsis workup
Final vascular surgical plan per attending, unsure if additional left lower extremity angiogram will benefit patient given recent noninvasive arterial ultrasound demonstrating improved arterial flow following most recent angiogram done on 03/06/24
Will review with vascular surgeon on-call Dr. Magdi Barone III
[2024-04-12] MEDS: MERREM 1000 MG IV (14:22)
--- NOTE | 2024-04-12 14:22 | CON.ID ---
Consultation
-
Date/Time Consultation Requested: April 12, 2024 1341
Date/Time Consultation Performed: April 12, 2024 1420
Requesting Provider: JAMES Carmichael
Performing Provider: Dr. Rosie Tai
Reason for Consultation: RUQ/epigastric pain, LLE critical limb ischemia
Chief Complaint / Past History
Chief Complaint
Weakness
History of Present Illness
Patient is somewhat of a poor historian. She is a 73-year-old female with history of diabetes mellitus, end-stage renal disease on hemodialysis, PAD status post lithotripsy, balloon angioplasty/stent to left superficial femoral artery and
popliteal artery March 05, 2024 who presented to the ER today from group home due to worsening left leg pain for several days. In ED white count 14.8, lactic acid 3.0 increased to 10, blood pressure in the 60s systolic, AST and ALT elevated 632
and 350, the left first toe now noted to be dusky, has erythema on foot. Patient also noted to have epigastric and right side abdominal pain. CAT scan without biliary tract dilatation, mild hepatomegaly. Patient reports she has been too weak to
go to dialysis. The abdominal pain started today. Positive nausea. No diarrhea. Appetite poor. She has decreased urine output. No fevers or chills. She denies worsening left leg pain to me. By report she is currently on doxycycline for the
foot cellulitis. [facility] She has not ventured outside.
Past History
Additional Past Medical History:
DM2
End-stage renal disease on dialysis Friday via dialysis Catheter
Peripheral artery disease status post left lower extremity intravascular intervention most recent March 05, 2024
Carotid stenosis
HLD
Aortic stenosis
CHF
Orthostatic hypotension
Hyperparathyroidism
Hearing impaired
Memory impairment
Vertigo
Ambulatory dysfunction
Chronic left heel gangrene, necrotic right hallux and fifth toe wounds
Allergy History:
No Known Allergies Allergy (Verified 03/05/24 07:30)
Medications Reviewed: Yes
Current Antibiotics:
Vancomycin
Meropenem
Social History
Tobacco: Former Smoker
Alcohol: None
Drug: None
Living: [facility] ([facility])
Family History
Family History: Not Pertinent
Review of Systems
Review of Systems
General: Change in Appetite; Negative Fever or Chills
HEENT: Headache; Negative Stiff Neck, Sinus Problems or Pharyngitis
Cardiovascular: Negative Chest Pain
Respiratory: Negative Dyspnea or Cough
Gasteroenterology: Nausea; Negative Vomiting or Diarrhea
Genital / Urological: Negative Flank Pain
Endocrine: Weakness and Fatigue
Neurological: Negative Dizziness
All systems: All other systems were reviewed and were negative
Vital Signs
Temp Pulse Resp BP Pulse Ox
97.6 F 85 10 60/33 100
04/12/24 08:42 04/12/24 14:00 04/12/24 14:00 04/12/24 14:00 04/12/24 11:04
Physical Exam
Physical Exam
Constitutional: Acutely Ill
Head: Other (No frontal or max or sinus tenderness)
Eyes: No Conjunctival Hemorrhage and Sclera Anicteric
Cardiovascular: Regular Rate and S1/S2
Pulmonary: Clear and Non Labored
Gastrointestinal: Soft, Tender (Epigastric, right upper quadrant, right abdomen), Non Distended and Normal Bowel Sounds
Genito-Urinary: Negative CVA Tenderness
Extremities: Edema (LLE 1+ )
Wound: Other (left heel dry gangrene, left hallux dusky appearing, mild erythema left foot; Right hallux and 5th toe dry necrotic wounds. )
Neurological: Awake and Alert; Negative Meningeal Signs
Lines: HD Cath (RCW dressing dry)
Lab / Diagnostic Study Results
04/12/24 11:46
04/12/24 09:17
Abs Immat Gran (auto) 0.1 10^3/uL (0-0.05) H 04/12/24 11:46
Absolute Neuts (auto) 13.5 10^3/uL (1.4-6.5) H 04/12/24 11:46
Absolute Lymphs (auto) 0.7 10^3/uL (1.2-3.4) L 04/12/24 11:46
Absolute Monos (auto) 0.5 10^3/uL (0.1-0.6) 04/12/24 11:46
Absolute Basos (auto) 0.0 10^3/uL (0-0.2) 04/12/24 11:46
Immature Gran % 0.5 % (0-0.5) 04/12/24 11:46
Neutrophils % 91.4 % (42.2-75.2) H 04/12/24 11:46
Lymphocytes % 4.4 % (20.5-51.1) L 04/12/24 11:46
Monocytes % 3.6 % (1.7-9.3) 04/12/24 11:46
Eosinophils % 0.0 % (0-6) 04/12/24 11:46
Basophils % 0.1 % (0-2) 04/12/24 11:46
Lactic Acid 10.0 mmol/L (0.7-2.0) H* 04/12/24 13:06
Microbiology Results
Micro:
04/12/24 09:17 Blood Culture - Pending
Blood/Venous
04/12/24 09:17 Blood Culture - Pending
Blood/Venous
04/12/24 09:17 Influenza Types A & B (ARNOLDO) - Final
Nasal Swab Negative for Influenza A & B, NAAT
Negative results must be combined with clinical observations
and patient history.
Nucleic Acid Amplification test (NAAT)performed on the
Affymax platform.
04/12/24 CXR: Likely mild cardiomegaly. No acute pulmonary process.
3/3/25 CT a/p: Prior cholecystectomy. No findings to suggest biliary tract dilatation. Mild hepatomegaly. Mild immediate postcontrast hepatic heterogeneous opacification and some periportal hypodensity seen on delayed postcontrast imaging. The
combination of these findings could represent acute hepatocellular process such as hepatitis. Periportal hypodensity may be reflective of intravenous hydration. Small hypodense right lobe and left lobe hepatic lesions too small to characterize, as
detailed above. Markedly atrophic left kidney with staghorn calculus in this dialysis dependent patient. Grossly patent proximal right renal artery stent, mid to distal right renal artery narrowing caliber. Several areas of scattered immediate
postcontrast hypodensity within the right kidney, especially posteriorly, cannot exclude some right renal infarcts. Some right renal atrophy noted.
04/12/24 Left foot XRAY: No recent cortical fracture or radiographic findings to suggest focal cortical bony destructive process.
Assessment / Plan
# Septic shock on 1 pressor
# Leukocytosis, hypothermic
# Elevated AST, ALT, Alk phos, normal bilirubin
+ Epigastric and RUQ abd pain
Check lipase
Ischemic hepatitis from hypotension suspected, but usually abd is nontender
?MRCP, although bilirubin normal suggesting not biliary issue
GI consulted
Follow blood cultures
Continue empiric Vancomycin and meropenem for now pending cultures and workup.
Trend temps/wbc/BP
# Possible left foot cellulitis
PAD s/p LLE endovascular intervention 02/2024
Chronic left heel gangrene appears dry, not wet
Chronic right hallux, right 5th toe wounds are dry
Left hallux dusky/ischemic looking
Vascular following
On Vanco/meropenem
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
DM2
End-stage renal disease on dialysis Friday via dialysis Catheter
Peripheral artery disease status post left lower extremity intravascular intervention most recent March 05, 2024
Carotid stenosis
HLD
Aortic stenosis
CHF
Orthostatic hypotension
Hyperparathyroidism
Hearing impaired
Memory impairment
Vertigo
Ambulatory dysfunction
Chronic left heel gangrene, necrotic right hallux and fifth toe wounds
[2024-04-12] MEDS: STERILE WATER FOR INJECTION 20 ML IV (14:23)
--- NOTE | 2024-04-12 15:47 | CON.GI ---
Addendum entered and electronically signed by JAMES Walsh 04/13/24 13:16:
Patient with ESRD not ES liver disease
Addendum entered and electronically signed by Good Araya MD 04/12/24 18:45:
I saw and examined the patient.
The [employer] ROLLER OPERATOR's note was reviewed and I agree with the note.
--Elevated liver test -likely secondary to shock liver with septic shock . CT abdomen-prior cholecystectomy. No biliary dilatation
-- Patient was complaining of upper abdominal pain which can be part of ischemic process with lactic acidosis. CT abdomen/pelvis with IV contrast-no acute pathology
-- End-stage renal disease
plan
Continue trend LFT
Hemodynamic stability
Management of sepsis as per medical team/ID
Follow-up blood culture
Hepatitis panel pending
Original Note:
Consultation
-
Date/Time Consultation Requested: 04/12/24 1340
Date/Time Consultation Performed: 04/12/24 1545
Requesting Provider: JAMES Carmichael
Performing Provider: Dr. Araya/JAMES Arias
Reason for Consultation: elevated LFTs
Medical History
Chief Complaint / HPI
History of Present Illness:
73-year-old female with past medical history of end-stage renal disease on hemodialysis Friday, aortic valve stenosis, peripheral artery disease, hypertension, hyperlipidemia, CHF with reduced ejection fraction, chronic bilateral
foot wounds with dry gangrene on Entresto and is compensated, cellulitis left lower extremity currently on doxycycline as an outpatient he was brought to the emergency room from [place] after complaints of fatigue, headaches, aches. Asked to
evaluate for elevated liver function tests as well as some abdominal discomfort on palpation. Patient tells me that she has not been eating or drinking well for the past 2 days. She also states that she has been 'spitting up'. She denies a true
cough but has been spitting up some mucus. This is not vomiting. She had some abdominal discomfort in the mid abdomen and states that she has not had a bowel movement in 3 days. The patient denies any prior GI history. She denies ever having an
endoscopy or colonoscopy. Denies any family history of gastrointestinal malignancy or IBD. She states that she lives with her Sister Mona. She denies any fevers, vomiting, melena, hematochezia, dysphagia or odynophagia. She is negative for flu.
She is negative for COVID. Hepatitis panel pending. Patient came in with a temperature of 97.6 and is currently 96.5, BP min 60/33, currently 105/74, heart rate 82. Lactic acid 10.0 up from 3.0. WBC 14.8, hemoglobin 12.0, hematocrit 36.8,
platelets 214, sodium 125, potassium 5.6, chloride 97, CO2 8, BUN 96, creatinine 4.5, glucose 235, total bilirubin 0.7, AST 632, ALT 350, alk phos 199, albumin 3.3, lipase pending.
Past Medical History
Past Medical History: Other (Hypertension, CAD, hyperlipidemia, diabetes, end-stage renal disease on HD, right toe gangrene, anemia of chronic disease, peripheral artery disease, chronic CHF, carotic stenosis, aortic valve stenosis,
hyperparathyroidism, chronic ambulatory dysfunction)
Past Surgical History: Other (Left lower extremity angiogram, balloon angioplasty with stenting of the left SFA, Mohs surgery for basal cell carcinoma, left lower extremity stenting, failed right upper extremity AV fistula)
Social History
Tobacco: Non-Smoker
Alcohol: None
Drug: None
Personal: Single
Living: Skilled Nursing
Family History
Family History: Other (No family history of gastrointestinal malignancy or IBD)
Allergies / Home Medications
Allergy/AdvReac Type Severity Reaction Status Date / Time
No Known Allergies Allergy Verified 03/05/24 07:30
�Medication �Instructions �Recorded
acetaminophen 325 mg tablet 650 mg PO Q6H PRN mild pain 12/27/23
aspirin 81 mg chewable tablet 81 mg PO DAILY Blood Clot 12/27/23
Prevention/Tx
cholecalciferol (vitamin D3) 25 25 mcg PO DAILY Supplement 12/27/23
mcg (1,000 unit) tablet
clopidogrel 75 mg tablet 75 mg PO DAILY Blood Clot 12/27/23
Prevention/Tx
docusate sodium 100 mg capsule 100 mg PO DAILY Constipation 12/27/23
(Colace)
ferrous gluconate 325 mg (36 mg 325 mg PO DAILY 12/27/23
iron) tablet
furosemide 40 mg tablet 80 mg PO TUTHSA@0800,1600 Fluid 12/27/23
Retention/Swelling
midodrine 5 mg tablet 5 mg PO BID SBP > 140 12/27/23
omega 3-xzv-psj-fish oil 1,000 mg 1 cap PO DAILY Supplement 12/27/23
(120 mg-180 mg) capsule (Fish Oil)
rosuvastatin 40 mg tablet 40 mg PO QPM High Cholesterol 12/27/23
sacubitril 24 mg-valsartan 26 mg 1 tab PO BID Heart Failure 12/27/23
tablet
trazodone 50 mg tablet 25 mg PO HS Sleep 12/27/23
white petrolatum 41 % topical 1 applic topical HS facial itching 12/27/23
ointment (Aquaphor Original)
glucagon HCl 1 mg solution for 1 mg SC Q15M PRN hypoglycemia 03/02/24
injection (Glucagon (HCl)
Emergency Kit)
insulin aspart U-100 100 unit/mL 1 sliding scale dose SC DIRECTED 03/02/24
subcutaneous solution
metoprolol succinate 25 mg 25 mg PO DAILY hold if SBP <110, 03/02/24
tablet,extended release 24 hr HR <60
(Toprol XL)
sevelamer carbonate 800 mg tablet 800 mg PO MEALS RENAL 03/02/24
doxycycline hyclate 100 mg capsule 100 mg PO BID Infection 04/12/24
ondansetron HCl 4 mg tablet 4 mg PO Q6HPRN PRN nausea/vomiting 04/12/24
Review of Systems
-
All other systems: A 12 pt ROS was Negative except as stated above in HPI
Vital Signs
Temp Pulse Resp BP Pulse Ox
96.5 F L 82 15 105/74 100
04/12/24 15:36 04/12/24 15:36 04/12/24 15:36 04/12/24 15:36 04/12/24 15:36
Physical Exam
Exam
General: No Apparent Distress
HEENT: Anicteric
Respiratory: Clear (anterior)
Cardiac: Regular Rhythm
GI: Soft, Non Distended, Normal Bowel Sounds and Tender (periumbilical )
Neuro: AO x 3
Psych: Calm
Results
WBC 14.8 10^3/uL (4.8-10.8) H 04/12/24 11:46
Hgb 12.0 g/dL (12.0-16.0) 04/12/24 11:46
Hct 36.8 % (37.0-47.0) L 04/12/24 11:46
MCV 102.5 fL (81.0-99.0) H 04/12/24 11:46
Plt Count 214 10^3/uL (130-400) 04/12/24 11:46
Absolute Neuts (auto) 13.5 10^3/uL (1.4-6.5) H 04/12/24 11:46
Sodium 125 mmol/L (135-145) L 04/12/24 09:17
Potassium 5.6 mmol/L (3.5-5.1) H 04/12/24 09:17
Chloride 97 mmol/L (98-107) L 04/12/24 09:17
Carbon Dioxide 8 mmol/L (22-30) L* 04/12/24 09:17
BUN 96 mg/dl (7-17) H 04/12/24 09:17
Creatinine 4.5 mg/dL (0.6-1.0) H* 04/12/24 09:17
Calcium 9.0 mg/dl (8.4-10.2) 04/12/24 09:17
Total Bilirubin 0.7 mg/dl (0.2-1.3) 04/12/24 09:17
AST 632 U/L (14-36) H* 04/12/24 09:17
ALT 350 U/L (0-35) H 04/12/24 09:17
Alkaline Phosphatase 199 U/L (38-126) H 04/12/24 09:17
Diagnostic Image Results:
CT Abd/Pelvis with IV contrast:
IMPRESSION:
Prior cholecystectomy. No findings to suggest biliary tract dilatation.
Mild hepatomegaly. Mild immediate postcontrast hepatic heterogeneous opacification and some periportal hypodensity seen on delayed postcontrast imaging. The combination of these findings could represent acute hepatocellular process such as
hepatitis. Periportal hypodensity may be reflective of intravenous hydration.
Small hypodense right lobe and left lobe hepatic lesions too small to characterize, as detailed above.
Markedly atrophic left kidney with staghorn calculus in this dialysis dependent patient.
Grossly patent proximal right renal artery stent, mid to distal right renal artery narrowing caliber. Several areas of scattered immediate postcontrast hypodensity within the right kidney, especially posteriorly, cannot exclude some right renal
infarcts. Some right renal atrophy noted.
Small volume abdominal and small to moderate volume pelvic ascites.
Prior GI Procedures:
EGD: Denies
Colonoscopy: Denies
Assessment / Plan
-
73-year-old female with past medical history of end-stage renal disease on hemodialysis Friday, aortic valve stenosis, peripheral artery disease, hypertension, hyperlipidemia, CHF with reduced ejection fraction, chronic bilateral
foot wounds with dry gangrene on Entresto and is compensated, cellulitis left lower extremity currently on doxycycline as an outpatient he was brought to the emergency room from [place] after complaints of fatigue, headaches, aches. Asked to
evaluate for elevated liver function tests as well as some abdominal discomfort on palpation. She denies any fevers, vomiting, melena, hematochezia, dysphagia or odynophagia. She is negative for flu. She is negative for COVID. Hepatitis panel
pending. Patient came in with a temperature of 97.6 and is currently 96.5, BP min 60/33, currently 105/74, heart rate 82. Lactic acid 10.0 up from 3.0. WBC 14.8, hemoglobin 12.0, hematocrit 36.8, platelets 214, sodium 125, potassium 5.6, chloride
97, CO2 8, BUN 96, creatinine 4.5, glucose 235, total bilirubin 0.7, AST 632, ALT 350, alk phos 199, albumin 3.3, lipase pending.
Impression:
Elevated transaminases
--> Associated with hypotension, lactic acidosis, recent lower extremity foot wound on doxycycline, end-stage liver disease
--> CXR with no acute pulm process (doubt cardiac process or legionella)
Plan:
-Await hepatitis panel
-Trend LFTs
-Await blood cultures
-
-
Thank you for consultation and allowing me to participate in the patient's care. Please call the recreation counselor GI physician during the after hours with any questions or concerns.
[2024-04-12 15:51] LABS: O2 Saturation % 99.4 % (94-98); PCO2 21 mmHg (32-35); PO2 131 mmHg (83-108)
[2024-04-12 15:53] LABS: HCO3 8.2 mmol/L (21-28)
[2024-04-12 16:06] LABS: Lipase 211 U/L (23-300)
--- NOTE | 2024-04-12 16:07 | CON.INTV ---
Addendum entered and electronically signed by Sandro Espinoza MD 04/12/24 19:19:
ECHOCARDIOGRAM to review cardiac function.
Original Note:
Consultation
Consultation Request
Date/Time Consultation Requested: 04/12/24 13:37
Date/Time Consultation Performed: 04/12/24 14:45
Requesting Provider: Keena Mead
Performing Provider: Sandro Espinoza MD; Ludin Reyes DO (Resident)
Reason for Consultation: Septic Shock Requiring Vasopressor Support
Medical History
-
Chief Complaint: Weakness
History of Present Illness:
73 year old female with a past medical history of coronary artery disease, heart failure with reduced ejection fraction, hypertension, hyperlipidemia, xub-[id number]-bqkovqork diabetes mellitus, myocardial infarction, end-stage renal disease requiring
dialysis 3 days/week, peripheral arterial disease status post lithotripsy, balloon angioplasty, stenting to the left superficial femoral artery and popliteal artery on 03/05/2024, chronic left heel gangrene with a chief complaint of fatigue and
weakness. Patient also has a recent history of left foot cellulitis for which she is currently taking doxycycline. Patient is overall a poor historian.
Patient states that over the past 2 days, she has been having vague symptoms of fatigue and weakness associated with 'brain fog' and mild headaches. She also endorses worsening left leg pain for several days. Patient lives at [facility], where
she was found to have a low blood pressure and noted to have recent minimal urine output and was sent to the emergency department this morning. Additionally, patient was supposed to receive dialysis today but was too weak to go. More acutely,
diffuse abdominal pain started today associated with nausea, poor appetite, and questionable vomiting. Patient denies diarrhea/constipation.
Past Medical History
Past Medical History: CAD, CHF, HTN, Hypercholesterolemia, NIDDM, DC, Renal Failure and Other (peripheral arterial disease, cellulitis, aortic valve stenosis, anemia, carotid stenosis, hearing impairment, chronic left heel gangrene)
Past Surgical History: Cholecystectomy, Gynecological and Other (Vascular surgery)
Social History
Tobacco: Non-smoker
Alcohol: Occasional
Drug: None
Personal: Single
Living: Skilled Nursing
Family History
Family History: Reviewed & Not Pertinent
Allergies / Home Medications
Allergies
Allergy/AdvReac Type Severity Reaction Status Date / Time
No Known Allergies Allergy Verified 03/05/24 07:30
Home Medications
�Medication �Instructions �Recorded �Confirmed �Last Taken �Type
acetaminophen 325 mg tablet 650 mg PO Q6H PRN mild pain 12/27/23 04/12/24 Unknown History
aspirin 81 mg chewable tablet 81 mg PO DAILY Blood Clot 12/27/23 04/12/24 Unknown History
Prevention/Tx
cholecalciferol (vitamin D3) 25 25 mcg PO DAILY Supplement 12/27/23 04/12/24 Unknown History
mcg (1,000 unit) tablet
clopidogrel 75 mg tablet 75 mg PO DAILY Blood Clot 12/27/23 04/12/24 Unknown History
Prevention/Tx
docusate sodium 100 mg capsule 100 mg PO DAILY Constipation 12/27/23 04/12/24 Unknown History
(Colace)
ferrous gluconate 325 mg (36 mg 325 mg PO DAILY 12/27/23 04/12/24 Unknown History
iron) tablet
furosemide 40 mg tablet 80 mg PO TUTHSA@0800,1600 Fluid 12/27/23 04/12/24 Unknown History
Retention/Swelling
midodrine 5 mg tablet 5 mg PO BID SBP > 140 12/27/23 04/12/24 Unknown History
omega 3-hyp-oqx-fish oil 1,000 mg 1 cap PO DAILY Supplement 12/27/23 04/12/24 Unknown History
(120 mg-180 mg) capsule (Fish Oil)
rosuvastatin 40 mg tablet 40 mg PO QPM High Cholesterol 12/27/23 04/12/24 Unknown History
sacubitril 24 mg-valsartan 26 mg 1 tab PO BID Heart Failure 12/27/23 04/12/24 Unknown History
tablet
trazodone 50 mg tablet 25 mg PO HS Sleep 12/27/23 04/12/24 Unknown History
white petrolatum 41 % topical 1 applic topical HS facial itching 12/27/23 04/12/24 Unknown History
ointment (Aquaphor Original)
glucagon HCl 1 mg solution for 1 mg SC Q15M PRN hypoglycemia 03/02/24 04/12/24 Unknown History
injection (Glucagon (HCl)
Emergency Kit)
insulin aspart U-100 100 unit/mL 1 sliding scale dose SC DIRECTED 03/02/24 04/12/24 Unknown History
subcutaneous solution
metoprolol succinate 25 mg 25 mg PO DAILY hold if SBP <110, 03/02/24 04/12/24 Unknown History
tablet,extended release 24 hr HR <60
(Toprol XL)
sevelamer carbonate 800 mg tablet 800 mg PO MEALS RENAL 03/02/24 04/12/24 Unknown History
doxycycline hyclate 100 mg capsule 100 mg PO BID Infection 04/12/24 04/12/24 Unknown History
ondansetron HCl 4 mg tablet 4 mg PO Q6HPRN PRN nausea/vomiting 04/12/24 04/12/24 Unknown History
Review of Systems
-
History Source: Patient
Constitutional: Fever (n) and Fatigue
Respiratory: No Symptoms
Cardiac: No Symptoms
Abdomen/GI: Abdominal Pain, Nausea, Vomiting, Diarrhea (n) and Constipated (n)
: No Symptoms
Musculoskeletal: Other (L foot pain)
Neuro: Other ('brain fog', mild headaches)
Vitals / Labs / Diagnostic Testing
Vital Signs
Temp Pulse Resp BP Pulse Ox
96.5 F L 82 15 105/74 100
04/12/24 15:36 04/12/24 15:36 04/12/24 15:36 04/12/24 15:36 04/12/24 15:36
Lab Data
04/12/24 11:46
04/12/24 09:17
Laboratory Results
04/12/24
15:35
pH 7.20 L
pCO2 21 L
pO2 131 H
HCO3 8.2 L*
O2 Delivery Level
Microbiology
04/12/24 09:17 Nasal Swab Influenza Types A & B (ARNOLDO) - Final
Negative for Influenza A & B, NAAT
Negative results must be combined with clinical observations
and patient history.
Nucleic Acid Amplification test (NAAT)performed on the
[employer] platform.
Diagnostic Testing:
XR left foot:
No recent cortical fracture or radiographic findings to suggest focal cortical bony destructive process. Degenerative changes.
Peripheral vascular ultrasound left lower extremity:
No evidence of deep venous thrombosis of the left lower extremity.
Chest x-ray:
Likely mild cardiomegaly. No acute pulmonary process.
CT abdomen and pelvis with IV contrast:
Prior cholecystectomy. No findings to suggest biliary tract dilatation.
Mild hepatomegaly. Mild immediate postcontrast hepatic heterogeneous opacification and some periportal hypodensity seen on delayed postcontrast imaging. The combination of these findings could represent acute hepatocellular process such as
hepatitis. Periportal hypodensity may be reflective of intravenous hydration.
Small hypodense right lobe and left lobe hepatic lesions too small to characterize, as detailed above.
Markedly atrophic left kidney with staghorn calculus in this dialysis dependent patient.
Grossly patent proximal right renal artery stent, mid to distal right renal artery narrowing caliber. Several areas of scattered immediate postcontrast hypodensity within the right kidney, especially posteriorly, cannot exclude some right renal
infarcts. Some right renal atrophy noted.
Small volume abdominal and small to moderate volume pelvic ascites.
Physical Exam
-
HEENT: Normocephalic and Anicteric
Cardiovascular: S1/S2, Regular Rhythm, Murmur (n) and Peripheral Edema (n)
Respiratory: Clear (anteriorly), Wheeze (n), Rales (n), Rhonchi (n) and Non-Labored Respirations
GI: Soft, Non Distended, Tender and Normal Bowel Sounds
Neurology: Awake, Alert and No Motor Deficits
Skin: Warm and Other (left heel chronic dry gangrene, left and right hallux with chronic ischemic changes)
Assessment
-
This is a 73 year old female with a past medical history of CAD, HFrEF (on Entresto and is compensated), HTN, HLD, NIDDM, DC, ESRD requiring dialysis 3 days/week, PAD s/p lithotripsy, balloon angioplasty, stenting to the left superficial femoral
artery and popliteal artery on 03/05/2024, and chronic left heel gangrene with LLE cellulitis (currently on doxycycline) who presented with nonspecific headache, fatigue, myalgias and found to be in septic shock, admitted to the intensive care unit
on 04/12/24 for intensive hemodynamic monitoring and pressor support along with antibiotic treatment and continued hemodialysis.
Assessment
Septic Shock 2/2 cellulitis vs. CLABSI
- BPs 80s/60s on arrival, WBC 14.8, tachycardia, hypothermic
- Lactate 3.0 on arrival, repeat after 4h, 10.0
- AGAP = 20 on arrival, repeat = 25 with CO2 of 6.
- ABG: pH 7.2, pCO2 21, pO2 131, HCO3 8.2, Base excess -18, Abg O2 Sat 99
- Possible LLE cellulitis, though left heel gangrene appears dry, not wet
- Patient has history of Cath for 1.5 years through which she received HD
- On consultation, patient on 10mcg/min Levophed with systolic BPs in the 120s
- Patient being followed by ID and Vascular
Elevated Liver Enzymes
- Abdominal pain and tenderness (RUQ/epigastrium), nausea, without vomiting, diarrhea, or constipation
- Likely ischemic hepatitis or shock liver from hypotension
- AST 632, ALT 350 Alk Phos 199, TBili 0.7, Lipase 211 on arrival
- Marginal improvement on repeat draw
- Patient being followed by GI
- CT Abd/Pelv see above
Possible Left Foot Cellulitis
- PAD s/p LLE angiogram, lithotripsy and stent on 03/05/24
- Chronic dry gangrene of the left heel noted
- Chronic wounds of the right 1st and 5th toes are dry; left hallux looks dusky
- Peripheral vascular US: No evidence of deep venous thrombosis of the left lower extremity.
- Being followed by ID and Vascular
ESRD with multiple metabolic derangements
- Patient normally receives HD on [facility]; did not receive HD today
- Na 125, K 5.6, Cl 97, CO2 8, BUN 96, Cr 4.5 with GAP of 20 on arrival
Chronic Conditions Present ORDER TAKER
ESRD
Heart failure reduced ejection fraction
Diabetes mellitus type 2
Nephrolithiasis, staghorn calculus
Severe atherosclerotic vascular disease
Coronary artery disease
Nonhealing bilateral foot wound
Anemia
Status post angioplasty stenting left leg 04/06/24
Ligated right upper extremity AV fistula due to steal
Plan:
Neurological:
RASS Goal 0 to 1
Currently no pain or sedation requirements
Reach out to family for collateral information on baseline
Cardiovascular
Stable BP on consultation while on 10mcg/min; wean as able for MAP goal > 65
Continue home med midodrine 5 mg PO BID once pressors weaned
Received 1 L NS and 1 L LR in ED; with stable BPs, discontinue in the setting of ESRD
Continue sodium bicarb infusion
Respiratory
Stable, encourage incentive spirometry
GI
Can start clear liquid diet
Follow up with GI recommendations
Trend liver enzymes
Follow up Hepatitis A, B, C panel
Zofran for nausea
Bowel Regimen
Renal/
May need CRRT given missed HD and increased pressor requirements
Follow BMPs
Follow Lactates
ID
Follow Lactates q6h until lactate < 2
Await cultures and sensitivities
Empiric broad spectrum antibiotics with Meropenem 500 mg IV q24h
Temperature Curve, trend WBC, BP
Heme/Onc
Heparin SQ for DVT PPx
Endocrine
ISS - low resistance
Data Reviewed
-
EKG: Tracing personally visualized and interpreted and Report reviewed by me
Radiology: Image personally visualized and interpreted and Report reviewed by me
CT Scan: Report reviewed by me
Ultrasound: Report reviewed by me
Labs: Labs reviewed by me and Discussed with Patient
Critical Care Time (in minutes): 45
Total Time Spent with Patient (in minutes): 20
[2024-04-12] MEDS: SODIUM BICARBONATE 50 MEQ IV ×3 (17:29→18:15)
[2024-04-12 17:33] LABS: Glucose - Point of Care 185 mg/dl (70-99)
[2024-04-12 17:54] LABS: ALT (SGPT) 335 U/L (0-35); AST (SGOT) 493 U/L (14-36); Albumin 3.9 g/dl (3.5-5.0); Alkaline Phosphatase 216 U/L (38-126); Blood Urea Nitrogen 92 mg/dl (7-17); Calcium 8.8 mg/dl (8.4-10.2); Carbon Dioxide 6 mmol/L (22-30); Chloride 95 mmol/L (98-107); Creatine Phosphokinase 528 U/L (30-135); Direct Bilirubin 0.8 mg/dl (0.0-0.4); Estimated Creatinine Clearance 8 ml/min; Glucose 198 mg/dl (70-99); Potassium 5.6 mmol/L (3.5-5.1); Sodium 126 mmol/L (135-145); Total Bilirubin 1.1 mg/dl (0.2-1.3); Total Protein 6.1 g/dl (6.3-8.2); eGFR 9.66
[2024-04-12] MEDS: SODIUM BICARBONATE 1150 MEQ IV (18:00)
[2024-04-12] MEDS: NOVOLOG FLEXPEN-LOW RESISTANCE 1 UNITS SC ×2 (18:16→23:57)
[2024-04-12 18:29] LABS: Hepatitis B Surface Antigen Negative (Negative)
[2024-04-12 18:30] LABS: Lactic Acid 5.2 mmol/L (0.7-2.0)
[2024-04-12 18:47] LABS: Hepatitis B Surface Antibody Negative; Hepatitis C Antibody Negative (Negative)
[2024-04-12 18:49] LABS: Hepatitis A Antibody, Total Negative (Negative)
--- NOTE | 2024-04-12 18:49 | PHA.VAN.IN ---
Assessment
- Assessment
Renal Function: Patient has ESRD, on chronic Hemodialysis
Hemodialysis Schedule: MWF (missed HD today, plan for HD tomorrow 04/13/24)
Concomitant Antimicrobials: meropenem
Plan
- Plan
Initial / Loading Dose: vanc 1500mg administered @ 1150
Maintenance Regimen: dosing by level / with HD
Monitoring: random level 04/13/24 0600
Pharmacokinetics Vancomycin I
- -
Patient Age: 73
Patient Sex: Female
Vancomycin Day #: 1
Indication: Gi / Intra-Abdominal
Requesting Provider: Dr. Tai
Pertinent Antimicrobial Allergies:
no pertinent antimicrobial allergies
Height / Weight:
Height 5 ft 1 in
Actual Weight 60.6 kg
- Vital Signs / Lab Results
Temp Pulse Resp BP Pulse Ox
96.5 F L 90 14 91/49 100
04/12/24 15:36 04/12/24 16:30 04/12/24 16:30 04/12/24 16:16 04/12/24 16:30
Lab Results - Hematology
04/12/24 04/12/24
09:17 11:46
WBC Cancelled 14.8 H
Lab Results - Chemistry
04/12/24 04/12/24
09:17 17:21
BUN 96 H 92 H
Creatinine 4.5 H* 4.5 H*
Estimated Creat Clear 8 8
Albumin 3.3 L 3.9
04/12/24 04/12/24 04/12/24
09:17 13:06 18:09
Lactic Acid 3.0 H 10.0 H* 5.2 H*
Microbiology Results
04/12/24 09:17 Influenza Types A & B (ARNOLDO) - Final
Nasal Swab Negative for Influenza A & B, NAAT
Negative results must be combined with clinical observations
and patient history.
Nucleic Acid Amplification test (NAAT)performed on the
[employer] platform.
--- NOTE | 2024-04-12 19:40 | PTCARENOTE ---
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 B/L LE DPs +doppler. RA Sat 100%. RSC HD cath WNL. BP cuff on RUE reading SBP 40-50s- adjusted/attempted different size cuff-reading remains low-
BDoughertyNP aware- at bedside to assess for fiona placement. 200o cuff reading obtained on R thigh- reading consistently more accurate. fiona in progress. care ongoing.
--- NOTE | 2024-04-12 19:50 | PTCARENOTE ---
Received pt from ED around 1700 on 12 mcg/min of levo. Pt was alert and cooperative, but poor historian and forgetful. Labs were attempted multiple times by staff nurse and then vat team had to stick pt mult times prior to obtaining labs that were
ordered. Multiple amps bicarb given as ordered and ivf hung as ordered. HD catheter redressed as dressing was loose upon admission. Site mildly red, but no drainage noted. Biopatch applied. CHG bath completed. Multiple wounds to b/l lower ext
with dry gangrene, open to air and elevated on pillow. Otherwise please see work list
[2024-04-12] MEDS: HEPARIN 5000 UNITS SC (20:38)
[2024-04-12] MEDS: ProAmatine 5 MG PO (20:38)
--- NOTE | 2024-04-12 21:16 | W.PN.UPDATE ---
Update Note
Progress Note Update
Procedure Note: Arterial Line�
� Right Wrist Arrow 20 (04/13)�
Diagnosis:��Septic Shock
IV Line Comments: Uneventful Procedure�
Kumar's test completed pre-procedure: Yes�
A-Line Comments: Sterile technique as per standard protocol, Ultrasound guided insertion�
Functioning A-line in situ: Yes�
A-line Insertion Start Time:�2100�
A-line in at:��2105
[2024-04-12 21:31] LABS: INR 1.74; PT 20.5 Sec (11.4-14.6)
[2024-04-12 21:32] LABS: APTT 31.2 Sec (23.4-35.0)
[2024-04-12 21:34] LABS: Lactic Acid 5.1 mmol/L (0.7-2.0)
[2024-04-12 21:45] LABS: Blood Urea Nitrogen 94 mg/dl (7-17); Calcium 8.5 mg/dl (8.4-10.2); Carbon Dioxide 10 mmol/L (22-30); Chloride 92 mmol/L (98-107); Estimated Creatinine Clearance 8 ml/min; Glucose 196 mg/dl (70-99); Potassium 4.9 mmol/L (3.5-5.1); Sodium 127 mmol/L (135-145); eGFR 9.93
--- NOTE | 2024-04-12 21:55 | PTCARENOTE ---
BMP results sent to Dr Tucker, no CRRT needed at this time per MD.
[2024-04-12] MEDS: DESYREL 25 MG PO (22:44)
[2024-04-12] MEDS: TYLENOL 650 MG PO (22:45)
[2024-04-13 00:06] LABS: Glucose - Point of Care 189 mg/dl (70-99)
--- NOTE | 2024-04-13 03:00 | PTCARENOTE ---
no changes in pt assessment. art SBP in 80s at times, BDoughertyNP aware- ok as long as MAPS >65. will monitor.
[2024-04-13] MEDS: TYLENOL 650 MG PO ×3 (03:01→12:14)
[2024-04-13 03:02] VITALS: BMI 25.4
[2024-04-13 03:43] LABS: % Basophils 0.1 % (0-2); % Immature Granulocytes 0.7 % (0-0.5); % Lymphocytes 4.2 % (20.5-51.1); % Monocytes 5.4 % (1.7-9.3); % Neutrophils 89.6 % (42.2-75.2); Absolute Immature Granulocytes 0.1 10^3/uL (0-0.05); Absolute Lymphocytes 0.7 10^3/uL (1.2-3.4); Absolute Monocytes 0.9 10^3/uL (0.1-0.6); Absolute Neutrophils 15.6 10^3/uL (1.4-6.5); Hematocrit 30.5 % (37.0-47.0); Hemoglobin 10.9 g/dL (12.0-16.0); Mean Corp Hgb Conc. 35.7 g/dL (33.0-37.0); Mean Corpuscular Hgb 34.1 pg (27.0-31.0); Mean Corpuscular Volume 95.3 fL (81.0-99.0); Mean Platelet Volume 11.4 fL (7.4-10.4); Nucleated Red Blood Cells % 0.7 %; Platelet Count 196 10^3/uL (130-400); Red Cell Dist. Width 16.8 % (11.5-14.5); White Blood Cell Count 17.4 10^3/uL (4.8-10.8)
[2024-04-13 03:46] LABS: APTT 32.8 Sec (23.4-35.0)
[2024-04-13 04:14] LABS: ALT (SGPT) 515 U/L (0-35); AST (SGOT) 787 U/L (14-36); Albumin 3.2 g/dl (3.5-5.0); Alkaline Phosphatase 213 U/L (38-126); Blood Urea Nitrogen 95 mg/dl (7-17); Calcium 8.3 mg/dl (8.4-10.2); Carbon Dioxide 13 mmol/L (22-30); Chloride 92 mmol/L (98-107); Estimated Creatinine Clearance 8 ml/min; Glucose 172 mg/dl (70-99); HDL Cholesterol 41 mg/dl; LDL Cholesterol, Calculated 55 mg/dl; Potassium 4.9 mmol/L (3.5-5.1); Sodium 127 mmol/L (135-145); Total Cholesterol 125 mg/dl (50-199); Total Protein 5.3 g/dl (6.3-8.2); Triglyceride 147 mg/dl (10-149); Very Low Density Lipoprotein 29 mg/dl (0-30); eGFR 9.66
[2024-04-13 04:26] LABS: Lactic Acid 3.6 mmol/L (0.7-2.0)
[2024-04-13 04:32] LABS: Vancomycin Random 18.8 ug/ml
[2024-04-13] MEDS: LEVOPHED 250 IV ×3 (05:33→15:05)
[2024-04-13] MEDS: NOVOLOG FLEXPEN-LOW RESISTANCE SC ×2 (05:35→12:14)
[2024-04-13 05:45] LABS: Glucose - Point of Care 148 mg/dl (70-99)
--- NOTE | 2024-04-13 06:42 | W.PN.HOSP.TC ---
Addendum entered and electronically signed by Leeanna Acosta MD 04/14/24 11:49:
NSTEMI is valid diagnosis
Original Note:
Today's Communication/Plan
-
.
Assessment / Plan
Assessment / Plan
Physical Exam
General: ill looking, Conversant
HEENT: Normocephalic, Anicteric,
Respiratory: limited, no wheezes.
Cardiac: S1/S2
GI: Soft, Non Distended, Normal Bowel Sounds
Musculoskeletal: Left heel: open wound/ gangrene-dry. No odor. No drainage. Right 5th toe black spot/ dry. No odor. No drainage.
Skin: Warm, Dry
Neuro: AO to self and surroundings, No Slurred Speech, Facial Droop, Tremors or Sedated
Psych: Calm
# Septic shock
Met criteria of sepsis POA
Source, possible left foot cellulitis but will need to rule out line sepsis, other sources. She denies abdominal pain this morning.
c/w empiric ABx
F/w blood cultures
Holding BP meds
c/w Levophed as tolerated.
No significant respiratory symptoms.
#Possible left foot cellulitis
Known severe PAD s/p LLE endovascular intervention 02/2024
Chronic left heel gangrene appears dry, no drainage
Chronic right big toe, 5th toe wounds are dry
Left hallux dusky/ischemic looking
Appreciate vascular input
#Acute transaminitis likely reactive due to septic shock
No abd pain
Lipase is normal
Negative hepatitis panel
CT abdomen pelvis with IV contrast: No findings to suggest biliary tract dilation, mild hepatomegaly. Mild immediate postcontrast hepatic heterogeneous opacification
Continue to treat sepsis and hypotension
#Acute hyperkalemia
resolved
#ESRD dialysis Friday
Metabolic acidosis
Right upper chest dialysis graft
# hyponatremia
#DM2 with mild hyperglycemia/diabetic neuropathy Hx
#No hx of heart failure
#HLD
-Hold rosuvastatin 40 mg every afternoon
#Anemia of chronic disease
# Chronic memory impairment per patient reported
#Chronic ambulatory dysfunction
PT/OT/case management eval
Carotid stenosis
-Hold statin due to transaminitis
#Insomnia
Trazodone 25 mg at bedtime hold for sedation
dVT
-Heparin SQ twice daily
Total time spent to see the patient, examine the patient, review data and lab results, discuss treatment plan with patient and nursing staff around 55 minutes
Anticipated Discharge: > 48 hours
Subjective/Interval History
-
Date of Service: April 13, 2024
No chest pain
No sob
No fevers
Objective Data
-
Labs:
Laboratory Results
04/12/24 04/13/24
21:06 03:07
WBC 17.4 H
Hgb 10.9 L
Hct 30.5 L
Plt Count 196
PT 20.5 H
INR 1.74
APTT 31.2 32.8
Sodium 127 L 127 L
Potassium 4.9 4.9
Chloride 92 L 92 L
Carbon Dioxide 10 L* 13 L*
BUN 94 H 95 H
Creatinine 4.4 H* 4.5 H*
Glucose 196 H 172 H
Calcium 8.5 8.3 L
Total Bilirubin 1.0
AST 787 H*
ALT 515 H*
Alkaline Phosphatase 213 H
Vital Signs:
Vital Signs
Temp Pulse Resp BP Pulse Ox
97.6 F 90 15 122/44 98
04/13/24 03:47 04/13/24 05:00 04/13/24 05:00 04/12/24 21:00 04/13/24 05:00
I&O
04/11/24 04/12/24 04/13/24
06:59 06:59 06:59
Intake Total 1330.0 / 1330.0
Balance 1330.0 / 1330.0
[2024-04-13] MEDS: COLACE 100 MG PO (07:28)
[2024-04-13] MEDS: SODIUM BICARBONATE 1150 MEQ IV (07:28)
[2024-04-13] MEDS: HEPARIN 5000 UNITS SC (07:28)
[2024-04-13] MEDS: ProAmatine 5 MG PO ×2 (07:28→15:51)
[2024-04-13 08:00] LABS: B.E. -5.7 mmol/L; HCO3 17.3 mmol/L (21-28); O2 Saturation % 99.6 % (94-98); PCO2 26 mmHg (32-35); PO2 187 mmHg (83-108); Potassium 4.9 mMOL/L (3.5-5.1); Sodium 123 mMOL/L (136-145); pH 7.43 (7.35-7.45)
--- NOTE | 2024-04-13 08:02 | W.PN.UPDATE ---
Update Note
Progress Note Update
Pt known to me
Admitted with general symptoms of fatigue and lethargy
Has chronic dry gangrene of right 5th toe and left heel
Previous endovascular interventions
Currently she is awake and alert
On pressors for hypotension
[place] left wrist
Left heel is dry. No odor. No drainage. Some edema left calf/ankle
Right 5th toe dry. No odor. No drainage.
Toe tips with scattered purple discoloration bilat
Non palp pedal pulses bilat
My impression is that her stable dry gangrene is not driving an acute systemic illness at the moment. Awaiting results of blood cultures as this could be line sepsis.
Will follow along with you
Possible arteriogram later this week if she demonstrates clinical improvement.
Given the extent of tissue loss and dry gangrene on the left heel her risk of limb loss is very high and I explained this to her.
Limb preservation of the right leg may still be a possibility
Magdi Barone III, MD
[facility] Vascular Surgery
[phone] (pmif)
[2024-04-13] MEDS: FLEXBUMIN 25% FOR HEMODIALYSIS 12.5 GRAMS IV ×2 (08:10→09:50)
[2024-04-13 08:12] LABS: Lactic Acid 3.2 mmol/L (0.7-2.0)
[2024-04-13] MEDS: MANNITOL 25% 12.5 GRAMS IV ×2 (08:16→09:55)
--- NOTE | 2024-04-13 08:16 | PTCARENOTE ---
Updated pt's niece Riya to events of night. She plans on visiting this afternoon with pt's sister and would like to have a goals of care discussion with doctors. Will discuss with docs/case management to try and arrange.
--- NOTE | 2024-04-13 08:48 | W.PN.GI.CBS2 ---
Today's Communication / Plan
-
LFTs up today, suspect due to hypotension overnight. A line placed overnight
Await BCX
Monitor LFTs and continue support BP
Low degree of suspicion for biliary cause currently. Could consider MRCP if increased concern
Will follow
Assessment / Plan
-
73-year-old female with past medical history of end-stage renal disease on hemodialysis Friday, aortic valve stenosis, peripheral artery disease, hypertension, hyperlipidemia, CHF with reduced ejection fraction, chronic bilateral
foot wounds with dry gangrene on Entresto and is compensated, cellulitis left lower extremity currently on doxycycline as an outpatient he was brought to the emergency room from [place] after complaints of fatigue, headaches, aches. Asked to
evaluate for elevated liver function tests as well as some abdominal discomfort on palpation. She denies any fevers, vomiting, melena, hematochezia, dysphagia or odynophagia. She is negative for flu. She is negative for COVID. Hepatitis panel
pending. Patient came in with a temperature of 97.6 and is currently 96.5, BP min 60/33, currently 105/74, heart rate 82. Lactic acid 10.0 up from 3.0. WBC 14.8, hemoglobin 12.0, hematocrit 36.8, platelets 214, sodium 125, potassium 5.6, chloride
97, CO2 8, BUN 96, creatinine 4.5, glucose 235, total bilirubin 0.7, AST 632, ALT 350, alk phos 199, albumin 3.3, lipase pending.
Impression:
Shock liver
Hypotension
Limb ischemia
Subjective
Subjective
Date of Service: April 13, 2024
Pt awake on HD. Denies abd pain
Objective
Data Reviewed
Laboratory Data:
Laboratory Results
04/13/24 03:07
04/13/24 03:07
Laboratory Results
PT 20.5 Sec (11.4-14.6) H 04/12/24 21:06
INR 1.74 04/12/24 21:06
APTT 32.8 Sec (23.4-35.0) 04/13/24 03:07
Total Bilirubin 1.0 mg/dl (0.2-1.3) 04/13/24 03:07
AST 787 U/L (14-36) H* 04/13/24 03:07
ALT 515 U/L (0-35) H* 04/13/24 03:07
Alkaline Phosphatase 213 U/L (38-126) H 04/13/24 03:07
Lipase 211 U/L (23-300) 04/12/24 09:17
Vital Signs and I&O:
Vital Signs
Temp Pulse Resp BP Pulse Ox
97.9 F 95 11 82/57 99
04/13/24 08:00 04/13/24 08:30 04/13/24 08:30 04/13/24 07:28 04/13/24 08:30
I&O
04/12/24 04/13/24 04/14/24
06:59 06:59 06:59
Intake Total 1455.0 / 1455.0
Balance 1455.0 / 1455.0
Physical Exam
Physical Exam
GI: Soft and Tender (minimal tender RUQ)
[2024-04-13 09:17] LABS: Glycohemoglobin (HgbA1c) 6.6 % (4.0-5.6)
--- NOTE | 2024-04-13 09:26 | PHA.VAN.FU ---
Vancomycin Assessment / Plan
- Assessment
Hemodialysis Schedule: MWF
Last Hemodialysis performed: today 04/13 (missed HD yesterday)
- Assessment - Therapeutic Drug Monitoring
Random Level: pre-HD = 18.8
- Dosing Plan
Dosing by Level: Re-dose today (Vanc 500mg)
- Monitoring Plan
Random Level: 04/14 0600
Monitoring Comments: follow HD plans
- Follow Up
Pharmacy will continue to follow.
Vancomycin Follow UP
- -
Patient Age: 73
Patient Sex: Female
Vancomycin Day #: 2
Indication: Gi / Intra-Abdominal
Requesting Provider: Dr. Tai
Pertinent Antimicrobial Allergies:
NKDA
Height / Weight:
Height 5 ft 1 in
Actual Weight 61 kg
Pertinent Past Medical History: DM 2, ESRD on HD MWF, PAD
- Vital Signs / Lab Results
Temp Pulse Resp BP Pulse Ox
97.9 F 95 11 82/57 99
04/13/24 08:00 04/13/24 08:30 04/13/24 08:30 04/13/24 07:28 04/13/24 08:30
Lab Results - Hematology
04/12/24 04/12/24 04/13/24
09:17 11:46 03:07
WBC Cancelled 14.8 H 17.4 H
Lab Results - Chemistry
04/12/24 04/12/24 04/12/24
09:17 17:21 21:06
BUN 96 H 92 H 94 H
Creatinine 4.5 H* 4.5 H* 4.4 H*
Estimated Creat Clear 8 8 8
Albumin 3.3 L 3.9
04/13/24
03:07
BUN 95 H
Creatinine 4.5 H*
Estimated Creat Clear 8
Albumin 3.2 L
04/12/24 04/12/2404/12/25
09:17 13:06 18:09
Lactic Acid 3.0 H 10.0 H* 5.2 H*
04/12/24 04/13/24 04/13/24
21:06 03:07 07:47
Lactic Acid 5.1 H* 3.6 H 3.2 H
Microbiology Results
04/12/24 09:17 Blood Culture - Preliminary
Blood/Venous No Growth in 24 hours- Final report to follow
04/12/24 09:17 Blood Culture - Preliminary
Blood/Venous No Growth in 24 hours- Final report to follow
04/12/24 09:17 Influenza Types A & B (ARNOLDO) - Final
Nasal Swab Negative for Influenza A & B, NAAT
Negative results must be combined with clinical observations
and patient history.
Nucleic Acid Amplification test (NAAT)performed on the
[employer] platform.
Therapeutic Drug Monitoring
Random Vancomycin 18.8 ug/ml 04/13/24 03:07
--- NOTE | 2024-04-13 09:47 | PTCARENOTE ---
iv capped per Dr Engel
--- NOTE | 2024-04-13 10:13 | W.PN.ID1 ---
Date of Service
Date of Service: April 13, 2024
Today's Communication
Continue Vanco/meropenem for now.
Assessment / Plan
# Septic shock on 1 pressor
# Leukocytosis, trended up
# Elevated AST, ALT, Alk phos, normal bilirubin
Epigastric and RUQ tenderness resolved
CT no mary dil. Lipase normal
Gi suspect due to hypotension
# Chronic dry gangrene of left heel
PAD s/p LLE endovascular intervention 02/2024
Several left toes dusky/ischemic looking - could be due to hypotension
Vascular following
# ESRD on HD via tunnelled catheter
Plan:
-Source of septic shock unclear
- Blood cx's neg to date
-COVID/FlU neg
- CXR neg. CT a/p unremarkable.
- Continue empiric Vancomycin, meropenem d2 for now.
- Trend vitals/wbc/temp.
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
DM2
End-stage renal disease on dialysis Friday via dialysis Catheter
Peripheral artery disease status post left lower extremity intravascular intervention most recent March 05, 2024
Carotid stenosis
HLD
Aortic stenosis
CHF
Orthostatic hypotension
Hyperparathyroidism
Hearing impaired
Memory impairment
Vertigo
Ambulatory dysfunction
Chronic left heel gangrene, necrotic right hallux and fifth toe wounds
Chief Complaint
-: Clinical Sepsis
Subjective / Review of Systems
No abdominal pain today.
left foot pain on and off, stable.
Vital Signs / Physical Exam
Vital Signs
Vital Signs
Temp Pulse Resp BP Pulse Ox
97.9 F 95 11 82/57 99
04/13/24 08:00 04/13/24 08:30 04/13/24 08:30 04/13/24 07:28 04/13/24 08:30
Physical Exam
Constitutional: No Acute Distress and Comfortable
Eyes: No Conjunctival Hemorrhage and Sclera Anicteric
Cardiovascular: Regular Rate and S1/S2
Pulmonary: Clear
Gastrointestinal: Soft, Non Tender, Non Distended and Normal Bowel Sounds
Extremities: Edema (LLE>RLE chronic) and Cyanosis (left 1st, 4th, 5th toes dusky)
Wound: Other (left heel dry gangrene)
Neurological: Awake and Alert
Lines: HD Cath (no erythema)
Objective Data
Lab Data
Lab Results
04/13/24 03:07
04/13/24 03:07
PT 20.5 Sec (11.4-14.6) H 04/12/24 21:06
INR 1.74 04/12/24 21:06
APTT 32.8 Sec (23.4-35.0) 04/13/24 03:07
Estimated Creat Clear 8 ml/min 04/13/24 03:07
Lactic Acid 3.2 mmol/L (0.7-2.0) H 04/13/24 07:47
Total Bilirubin 1.0 mg/dl (0.2-1.3) 04/13/24 03:07
AST 787 U/L (14-36) H* 04/13/24 03:07
ALT 515 U/L (0-35) H* 04/13/24 03:07
Alkaline Phosphatase 213 U/L (38-126) H 04/13/24 03:07
Most recent labs reviewed.
Micro Results:
04/12/24 09:17 Blood Culture - Preliminary
Blood/Venous No Growth in 24 hours- Final report to follow
04/12/24 09:17 Blood Culture - Preliminary
Blood/Venous No Growth in 24 hours- Final report to follow
04/12/24 21:06 MRSA Screen - Pending
Nose
04/12/24 09:17 Influenza Types A & B (ARNOLDO) - Final
Nasal Swab Negative for Influenza A & B, NAAT
Negative results must be combined with clinical observations
and patient history.
Nucleic Acid Amplification test (NAAT)performed on the
[employer] platform.
04/12/24 CXR: Likely mild cardiomegaly. No acute pulmonary process.
04/12/24 CT a/p: Prior cholecystectomy. No findings to suggest biliary tract dilatation. Mild hepatomegaly. Mild immediate postcontrast hepatic heterogeneous opacification and some periportal hypodensity seen on delayed postcontrast imaging. The
combination of these findings could represent acute hepatocellular process such as hepatitis. Periportal hypodensity may be reflective of intravenous hydration. Small hypodense right lobe and left lobe hepatic lesions too small to characterize, as
detailed above. Markedly atrophic left kidney with staghorn calculus in this dialysis dependent patient. Grossly patent proximal right renal artery stent, mid to distal right renal artery narrowing caliber. Several areas of scattered immediate
postcontrast hypodensity within the right kidney, especially posteriorly, cannot exclude some right renal infarcts. Some right renal atrophy noted.
04/12/24 Left foot XRAY: No recent cortical fracture or radiographic findings to suggest focal cortical bony destructive process.
Care Review
Plan reviewed with: Physician (Dr. Villalobos)
--- NOTE | 2024-04-13 10:16 | W.PN.NEPH.PH ---
Today's Communication / Plan
-
HD today
d/c bicarb gtt
Assessment/Plan
-
Assessment
ESRD
Heart failure reduced ejection fraction
Diabetes mellitus type 2
Nephrolithiasis, staghorn calculus
Severe atherosclerotic vascular disease
Coronary artery disease
Nonhealing bilateral foot wound
Metabolic acidosis
lactic acidosis
Anemia
Status post angioplasty stenting left leg 04/06/24
Ligated right upper extremity AV fistula due to steal
sepsis
shock liver
Plan:
HD today with limited UF
keep MAP > 65 with pressors, cont midodrine support
met acidosis improving with bicarb gtt
L acid improving
await cx
empiric broad spectrum abx per ID
monitor LFTs-increasing trend
critical care time 31 minutes
d/w nursing
-
-
Date of Service: April 13, 2024
CC / HPI / ROS
-
Chief Complaint:
ESRD
History of Present Illness:
met acidosi sis better bicarb 13
LFTs are increasing, hb decreasing at 10.9
L acid at 5.1-improving
wt is up
WBC is up
Review of Systems:
offers no cp or sob
no other complaints
Labs
-
Labs:
WBC 17.4 10^3/uL (4.8-10.8) H 04/13/24 03:07
RBC 3.20 10^6/uL (4.20-5.40) L 04/13/24 03:07
Hgb 10.9 g/dL (12.0-16.0) L 04/13/24 03:07
Hct 30.5 % (37.0-47.0) L 04/13/24 03:07
Plt Count 196 10^3/uL (130-400) 04/13/24 03:07
Sodium 127 mmol/L (135-145) L 04/13/24 03:07
Potassium 4.9 mmol/L (3.5-5.1) 04/13/24 03:07
Chloride 92 mmol/L (98-107) L 04/13/24 03:07
Carbon Dioxide 13 mmol/L (22-30) L* 04/13/24 03:07
BUN 95 mg/dl (7-17) H 04/13/24 03:07
Creatinine 4.5 mg/dL (0.6-1.0) H* 04/13/24 03:07
eGFR 9.66 04/13/24 03:07
Glucose 172 mg/dl (70-99) H 04/13/24 03:07
Calcium 8.3 mg/dl (8.4-10.2) L 04/13/24 03:07
Albumin 3.2 g/dl (3.5-5.0) L 04/13/24 03:07
Physical Exam
-
Vital Signs:
Vital Signs
Temp Pulse Resp BP Pulse Ox
97.9 F 95 11 82/57 99
04/13/24 08:00 04/13/24 08:30 04/13/24 08:30 04/13/24 07:28 04/13/24 08:30
Cardiovascular:: Regular rate and rhythm
Respiratory:: Bilateral: Coarse
Lung Excursion:: Normal
Abdomen:: Nontender and Soft
Bowel Sounds:: Normal
Extremity Edema:: +1: Bilateral:
Barone Catheter: No
Other Findings::
dry gangrene of both feet
--- NOTE | 2024-04-13 10:49 | W.PN.NEPH.HD ---
Assessment
-
pt seen during HD
vitals stable-a line
pressors continues
UF limited by low Bps
abx renal dosed
ok to stop IV bicarb gtt now that pt is on HD
CVC functions fine
Progress Note - Hemodialysis
-
Date of Service: April 13, 2024
Duration: 30 minutes and 3 hours
Potassium Bath: 2
Calcium Bath: 2.5
Opti-Dialyzer: 160
Ultrafiltration: Other (1-2kg)
Blood Flow: 400
Dialysate Flow: 600
Heparin: no
EPO: no
[2024-04-13] MEDS: HEPARIN 3600 UNITS INTRACATH (11:27)
[2024-04-13 12:15] LABS: Glucose - Point of Care 126 mg/dl (70-99)
[2024-04-13] MEDS: VANCOCIN HCL 500 MG 100 IV (12:34)
[2024-04-13] MEDS: PITRESSIN 100 IV (12:42)
--- NOTE | 2024-04-13 12:56 | PTCARENOTE ---
Pt had HD today, only able to have 500ml UF given increased heart rates/ectopy/hypotension. Once HD completed, pt persistently hypotensive despite increasing levophed. Dr Lynn aware and vasopressin ordered and initiated. Plan to place central
line shortly. Labs drawn and sent as ordered. Echo also called and made aware that pt currently available for echo.
[2024-04-13 12:57] LABS: Lactic Acid 3.9 mmol/L (0.7-2.0)
--- NOTE | 2024-04-13 13:42 | WOUNDNOTE ---
R 5TH TOE
--- NOTE | 2024-04-13 13:42 | WOUNDNOTE ---
R GREAT TOE TIP
--- NOTE | 2024-04-13 13:45 | WOUNDNOTE ---
L GREAT TOE TIP
--- NOTE | 2024-04-13 13:46 | WOUNDNOTE ---
LOWELL RN note: Patient admitted with sepsis.
See H&P for complete history.
PMH: PAD, [place], CAD, DM, ESRD on HD, Covid, dry gangrene on heels and few toes.
Wound Location and type/assessment: Patient last seen 03/05/24 by wound care. Admitted with same arterial wounds on R heel lateral, L heel, b/l great toe tips and R 5th toe, all intact dry gangrene. Reviewed vascular note from Dr. Barone. Possible
arteriogram at end of week if stable. Sacrum blanchable pink, gluteal cleft with same stage 1 pressure injury. Patient turns self in bed with minimal assist.
Appetite: NPO
Pressure redistribution devices in place: Air mattress, air cushions under heels.
Plan: Betadine applied to all PAD ulcers. Heels off bed with air chair cushion.
Will follow along peripherally and assist as needed. Care plan to be updated and updated nurse Janell.
Note to case management of equipment requested for discharge: Air mattress.
Patient to follow up with vascular.
[2024-04-13 13:54] LABS: Cortisol, Random 64.9 ug/dl
--- NOTE | 2024-04-13 14:34 | CM ---
CM following re: discharge planning.
Reviewed pt's chart, met with pt. CM met with pt's niece and pt's sister who is next of kin.
Pt is a 73 year old female, admitted with primary dx of Septic shock
Per pt's sister and niece, pt is a LTC resident at [facility], requires total care, on HD treatment MWF. .
CM spoke to [facility] liaison and server systems administrator and they confirmed that pt is a LTC resident, on 15 day Medicaid bed hold, on HD treatment MWF and pt will be accepted back when medically stable.
Pt's clinical faxed to [facility] for a review.
D/C plan: return back to [facility] when medically stable.
CM will follow with discharge plan updates as hospitalization progreseses
--- NOTE | 2024-04-13 14:46 | W.PN.INTV ---
Today's Communication / Plan
Recommendations
Central Line Placement
Continue Pressor Support
Cardiology Consult
Restart ASA, Plavix, Rosuvastatin, Repeat EKG, Start Heparin gtt
Continue Meropenem
HD today
Assessment
-
This is a 73 year old female with a past medical history of CAD, HFrEF (on Entresto and is compensated), HTN, HLD, NIDDM, GA, ESRD requiring dialysis 3 days/week, PAD s/p lithotripsy, balloon angioplasty, stenting to the left superficial femoral
artery and popliteal artery on 03/05/2024, and chronic left heel gangrene with LLE cellulitis (currently on doxycycline) who presented with nonspecific headache, fatigue, myalgias and found to be in septic shock, admitted to the intensive care unit
on 04/12/24 for intensive hemodynamic monitoring and pressor support along with antibiotic treatment and continued hemodialysis.
Assessment
Septic Shock 2/2 cellulitis vs. CLABSI
- BPs 80s/60s on arrival, WBC 14.8, tachycardia, hypothermic
- Lactate 3.0 on arrival, repeat after 4h, 10.0
- Lactate 3.2 this AM and downtrending; repeat in PM 3.9
- AGAP = 20 on arrival, repeat = 25 with CO2 of 6.
- GAP 22 this AM
- ABG (04/12): pH 7.2, pCO2 21, pO2 131, HCO3 8.2, Base excess -18, Abg O2 Sat 99
- Repeat ABG: pH 7.43, pCO@ 26, pO@ 187, HCO3 17.3
- Possible LLE cellulitis, though left heel gangrene appears dry, not wet
- Patient has history of Cath for 1.5 years through which she received HD
- On consultation, patient on 10mcg/min Levophed with systolic BPs in the 120s
- Patient still requires pressor support this AM, up from yesterday
- Patient also on home dose midodrine
- Patient being followed by ID and Vascular
- BCx pending
Elevated Liver Enzymes
- Abdominal pain and tenderness (RUQ/epigastrium), nausea, without vomiting, diarrhea, or constipation
- Likely ischemic hepatitis or shock liver from hypotension
- AST 632, ALT 350 Alk Phos 199, TBili 0.7, Lipase 211 on arrival
- Marginal improvement on repeat draw
- Patient being followed by GI
- CT Abd/Pelv see above
Possible Left Foot Cellulitis
- PAD s/p LLE angiogram, lithotripsy and stent on 03/05/24
- Chronic dry gangrene of the left heel noted
- Chronic wounds of the right 1st and 5th toes are dry; left hallux looks dusky
- Peripheral vascular US: No evidence of deep venous thrombosis of the left lower extremity.
- Being followed by ID and Vascular
ESRD with multiple metabolic derangements
- Patient normally receives HD on ; did not receive HD today
- Na 125, K 5.6, Cl 97, CO2 8, BUN 96, Cr 4.5 with GAP of 20 on arrival
- Patient followed up Nephrology, HD today
Hx of CAD s/p GA and Cath (Oct 2023)
- Elevated Troponin 76
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
ESRD
Heart failure reduced ejection fraction
Diabetes mellitus type 2
Nephrolithiasis, staghorn calculus
Severe atherosclerotic vascular disease
Coronary artery disease
Nonhealing bilateral foot wound
Anemia
Status post angioplasty stenting left leg 04/06/24
Ligated right upper extremity AV fistula due to steal
Plan:
Neurological:
RASS Goal 0 to 1
Currently no pain or sedation requirements
Cardiovascular
Continue pressor support with Levophed + add vasopressin today, starting at 0.03 u/min; wean as able for MAP goal > 65
Central line for continued pressor requirements
Troponin ordered this AM in the setting of increased pressor requirements and decreased suspicion of infection
Cardiology consulted, repeat EKG, resume ASA, rosuvastatin, Plavix, start Heparin gtt
Increase Midodrine to 5 mg TID
Received 1 L NS and 1 L LR in ED; with stable BPs, discontinue in the setting of ESRD
Respiratory
Stable, encourage incentive spirometry
GI
Renal diet (2g K); no current restriction on sodium given hyponatremia, but consider 2g sodium once normalized
Follow up with GI recommendations
Trend liver enzymes
Follow up Hepatitis A, B, C panel
Zofran for nausea
Bowel Regimen
Renal/
Followed by Nephrology; HD today
Follow BMPs
Follow Lactates
ID
Follow Lactates q6h until lactate < 2
Await cultures and sensitivities
Empiric broad spectrum antibiotics with Meropenem 500 mg IV q24h
Temperature Curve, trend WBC, BP
Heme/Onc
Heparin for DVT PPx
Endocrine
ISS - low resistance
Subjective Dataa
Subjective Data
Date of Service:
Date of Service: April 13, 2024
Subjective:
Patient seen and examined while resting in bed. Patient subjectively feeling okay, no chest pain, no abdominal pain, no shortness of breath, no fevers. Patient still requiring pressor support; requirements up to 14 mcg/min from 10 mcg/min. Patient
offers no other complaints.
Review of Systems
General: Fever (n) and Pain (continued pain of the left foot intermittently)
Cardiopulmonary: Dyspnea (n) and Chest Pain (n)
GI: Abdominal Pain (n) and Other (patient continues to spit up intermittently)
Objective Data
Data Reviewed
Vital Signs / I&O / Oxygen:
Vital Signs
Temp Pulse Resp BP Pulse Ox
97.9 F 114 10 82/57 99
04/13/24 12:00 04/13/24 10:15 04/13/24 10:15 04/13/24 07:28 04/13/24 10:15
Intake and Output
04/12/24 04/13/24 04/14/24
06:59 06:59 06:59
Intake Total 1455.0 / 1580.0 670.0 / 670.0
Output Total 0 / 0
Balance 1455.0 / 1580.0 670.0 / 670.0
SaO2 99
Physical Exam
General: Respiratory Distress (n), Comfortable, Fever (n) and T Max (98.4)
HEENT: Normocephalic and Anicteric
Cardiovascular: S1-S2, Regular Rhythm, Murmur (n) and Peripheral Edema (n)
Respiratory: Clear (anteriorly), Wheeze (n), Crackles (n), Rhonchi (n), Non-Labored Respirations, Accessory Resp Muscle Use (n) and Stridor (n)
GI: Soft and Non Distended
Neurology: Awake and Alert
Skin: Warm, Dry and Other (left heel chronic dry gangrene, left and right hallux with chronic ischemic changes)
Labs/Micro/Reports
Lab Data
04/13/24 03:07
04/13/24 03:07
Laboratory Results
04/12/24 04/12/24 04/13/24
15:35 21:06 03:07
PT 20.5 H
INR 1.74
APTT 31.2 32.8
pH 7.20 L
pCO2 21 L
pO2 131 H
HCO3 8.2 L*
O2 Delivery Level
04/13/24
07:47
PT
INR
APTT
pH 7.43
pCO2 26 L
pO2 187 H
HCO3 17.3 L
O2 Delivery Level
Microbiology
04/12/24 09:17 Blood/Venous Blood Culture - Preliminary
No Growth in 24 hours- Final report to follow
04/12/24 09:17 Blood/Venous Blood Culture - Preliminary
No Growth in 24 hours- Final report to follow
04/12/24 09:17 Nasal Swab Influenza Types A & B (ARNOLDO) - Final
Negative for Influenza A & B, NAAT
Negative results must be combined with clinical observations
and patient history.
Nucleic Acid Amplification test (NAAT)performed on the
[employer] platform.
--- NOTE | 2024-04-13 14:52 | W.IMMPOSTOP ---
Surgical Immed Post Op Note
-
Primary Surgeon: Sandro Espinoza
Pre-op Diagnosis: Shock
Post-op Diagnosis: Shock need access for pressor support
Procedure Performed: Right central line
Anesthesia Type: Local
Specimen / Cultures: None
Estimated Blood Loss: Minimal
Complications: None
Operative Findings: All 3 lm were flushing and withdrawing without any resistance.
Triple-lumen 8 Pashto right femoral central line placement:
Consent was obtained from the patient and the area was cleaned with chlorhexidine. Full body drape was placed and 3 mL of 1% local anesthesia with lidocaine was injected. Under real-time ultrasound guidance with the probe cover in place femoral
vein was punctured and guidewire introduced. Guidewire in the vein was again confirmed with ultrasound. Small timi was placed and a dilator was introduced. Subsequently triple-lumen catheter was introduced and guidewire was withdrawn. All 3
ports were checked and they were flushing and withdrawing without any resistance. 3 lm were capped and 2 retention sutures were placed. Subsequently a central line dressing was placed.
(Patient has a right IJ permacath in place. Initially left IJ vein was attempted but guidewire Meeting resistance after about 10 cm which I suspect was due to the permacath already in place. Procedure was then aborted and switched to right femoral
line)
--- NOTE | 2024-04-13 15:20 | PTCARENOTE ---
pt having bedside echo. Dr Barone currently at bedside and update pt and family. Nelsy Love at bedside and previously discussed limited options given pt previously refused sx with multivessel dz. Pt has now been maxed on 2 pressors. Still
remains alert and communicative R femoral tlc has been placed and pressors now infusing.
--- NOTE | 2024-04-13 15:20 | CON.CAR ---
Addendum entered and electronically signed by Yoandy Santos DO 04/14/24 07:18:
I saw and examined the patient 04/13/2024 at 4:30 PM.
The Pr Internship's note was reviewed and I agree with the note.
Comment:
Plan:
Critically ill on 2 pressors and discussed starting IV Abimael as pt appears to be in cardiogenic shock
Urgent bedside echo with worsening EF 10-15% and possible apical thrombus.
Receiving broad spectrum antibiotics for potential sepsis
Will attempt to give IV amiodarone for NSVT as tolerated.
Trend troponins to peak, currently 76.
Cont DAPT and IV Heparin
She does not appear to be a candidate for any surgical intervention and has previously declined surgical consideration.
As per her outside emergency vehicle dispatcher recommendations, she is appears appropriate for palliative care and does not have any revascularizable options.
Discussed with family that she is decompensated in cardiogenic and possible septic shock and that her condition appears to be worsening. Family understood and agreed and called for additional family members to come visit the patient as her clinical
state has worsened. The patient is DNR.
Records reviewed including prior office note and cath report.
Discussed with nursing, echo, vice president fixed income and multiple family members including her niece and sister at bedside.
HPI: Patient is a 73 yo F with PMH of complex vascular disease including bilateral renal artery stenting, right superficial femoral artery interventions and known critical left lower extremity PAD, CAD with prior RCA stent, insulin-dependent
diabetes, ESRD on HD MWF, history of noncompliance who in August [address] elevation [place] after ischemia from creation of AV fistula resulting in steal syndrome. She required dobutamine and levophed. She underwent echo which showed newly reduced
LV dysfunction with EF of 25 to 30%. She underwent cardiac catheterization which showed multivessel CAD including distal left main/LAD disease. She was not felt to have any PCI options and she did not want surgery, so was treated medically. Primary
emergency vehicle dispatcher explained to patient and niece that if patient were to have true new STEMI/ACS that comfort care would be most appropriate. She presented to with symptoms of fatigue and lethargy. She has known chronic dry gangrene of her right
fifth toe as well as left heel. There is concern for septic shock with elevated lactic acid and was given 2 L of fluid in the ER. Vascular has been consulted and may require amputation. She is currently requiring multiple pressors. Troponin was
checked which resulted at 76 resulting in cardiology consult. Denies CP, SOB. On asa, plavix as OP.
Original Note:
Consultation
Consultation Request
Date/Time Consultation Performed: 04/13/24
Requesting Provider: Dr. Reyes, resident
Performing Provider: Nelsy Love PA-C for Dr. Santos
Reason for Consultation: elevated troponin, septic shock
Medical History
-
Chief Complaint: foot pain
History of Present Illness:
Patient is a 73 yo F with PMH of complex vascular disease including bilateral renal artery stenting, right superficial femoral artery interventions and known critical left lower extremity PAD, CAD with prior RCA stent, insulin-dependent diabetes,
ESRD on HD MWF, history of noncompliance who in August [address] elevation AK after ischemia from creation of AV fistula resulting in steal syndrome. She required dobutamine and levophed. She underwent echo which showed newly reduced LV
dysfunction with EF of 25 to 30%. She underwent cardiac catheterization which showed multivessel CAD including distal left main/LAD disease. She was not felt to have any PCI options and she did not want surgery, so was treated medically. Primary
emergency vehicle dispatcher explained to patient and niece that if patient were to have true new STEMI/ACS that comfort care would be most appropriate. She presented to with symptoms of fatigue and lethargy. She has known chronic dry gangrene of her right
fifth toe as well as left heel. There is concern for septic shock with elevated lactic acid and was given 2 L of fluid in the ER. Vascular has been consulted and may require amputation. She is currently requiring multiple pressors. Troponin was
checked which resulted at 76 resulting in cardiology consult. Denies CP, SOB. On asa, plavix as OP.
PMH:
CAD
s/p RCA PCI 2006
NSTEMI in setting of steal syndrome from AV fistula creation 08/2023 with cath showing MV CAD including distal L main/ostial LAD disease, medically managed
ICM, EF 25-30% by echo 08/2023 at [facility]
ESRD on HD, started 08/2023
HTN
HLD
Mild
Mod B/L carotid artery disease
PAD
Severe below the knee disease bilaterally
Right superficial femoral artery interventions
Known critical left leg PAD
Suspected left subclavian occlusion
Type 2 diabetes, insulin dependent
Diabetic foot wounds with chronic dry gangrene, followed by vascular
Anemia of chronic disease
Chronic memory impairment
History of hysterectomy
History of noncompliance
Past Medical History
Past Medical History: Other (in HPI)
Social History
Tobacco: Non-Smoker
Personal: Single
Living: [facility]
Family History
Family History: Reviewed & Not Pertinent
Allergies / Home Medications
Allergy/AdvReac Type Severity Reaction Status Date / Time
No Known Allergies Allergy Verified 03/05/24 07:30
�Medication �Instructions �Recorded �Confirmed �Type
acetaminophen 325 mg tablet 650 mg PO Q6H PRN mild pain 12/27/23 04/12/24 History
aspirin 81 mg chewable tablet 81 mg PO DAILY Blood Clot 12/27/23 04/12/24 History
Prevention/Tx
cholecalciferol (vitamin D3) 25 25 mcg PO DAILY Supplement 12/27/23 04/12/24 History
mcg (1,000 unit) tablet
clopidogrel 75 mg tablet 75 mg PO DAILY Blood Clot 12/27/23 04/12/24 History
Prevention/Tx
docusate sodium 100 mg capsule 100 mg PO DAILY Constipation 12/27/23 04/12/24 History
(Colace)
ferrous gluconate 325 mg (36 mg 325 mg PO DAILY 12/27/23 04/12/24 History
iron) tablet
furosemide 40 mg tablet 80 mg PO TUTHSA@0800,1600 Fluid 12/27/23 04/12/24 History
Retention/Swelling
midodrine 5 mg tablet 5 mg PO BID SBP > 140 12/27/23 04/12/24 History
omega 4-lqw-bti-fish oil 1,000 mg 1 cap PO DAILY Supplement 12/27/23 04/12/24 History
(120 mg-180 mg) capsule (Fish Oil)
rosuvastatin 40 mg tablet 40 mg PO QPM High Cholesterol 12/27/23 04/12/24 History
sacubitril 24 mg-valsartan 26 mg 1 tab PO BID Heart Failure 12/27/23 04/12/24 History
tablet
trazodone 50 mg tablet 25 mg PO HS Sleep 12/27/23 04/12/24 History
white petrolatum 41 % topical 1 applic topical HS facial itching 12/27/23 04/12/24 History
ointment (Aquaphor Original)
glucagon HCl 1 mg solution for 1 mg SC Q15M PRN hypoglycemia 03/02/24 04/12/24 History
injection (Glucagon (HCl)
Emergency Kit)
insulin aspart U-100 100 unit/mL 1 sliding scale dose SC DIRECTED 03/02/24 04/12/24 History
subcutaneous solution
metoprolol succinate 25 mg 25 mg PO DAILY hold if SBP <110, 03/02/24 04/12/24 History
tablet,extended release 24 hr HR <60
(Toprol XL)
sevelamer carbonate 800 mg tablet 800 mg PO MEALS RENAL 03/02/24 04/12/24 History
doxycycline hyclate 100 mg capsule 100 mg PO BID Infection 04/12/24 04/12/24 History
ondansetron HCl 4 mg tablet 4 mg PO Q6HPRN PRN nausea/vomiting 04/12/24 04/12/24 History
Review of Systems
-
History Source: Patient and Family
All other systems: Negative unless noted
Physical Exam
Vital Signs
Temp Pulse Resp BP Pulse Ox
97.9 F 114 10 82/57 99
04/13/24 12:00 04/13/24 10:15 04/13/24 10:15 04/13/24 07:28 04/13/24 10:15
Lab Results
04/13/24 03:07
Troponin I 76.400 ng/ml H* 04/13/24 12:29
Physical Exam
General: No Apparent Distress, Comfortable and Other (on supp O2)
HEENT: Normocephalic, Anicteric and Moist Mucous Membranes
Respiratory: Crackles and Non Labored Respirations
Cardiac: S1/S2, Regular Rhythm and Other (tachy)
GI: Soft, Non Tender, Non Distended and Normal Bowel Sounds
Musculoskeletal: No Clubbing, No Cyanosis and Edema (1+ of B/L LE )
Skin: Warm, Dry and Other (L heel gangrene)
Neuro: Awake, Alert and Oriented (to self, place. confused at times)
Impression / Plan
-
Primary emergency vehicle dispatcher: Dr. Pitt of [facility]
Assessment:
Presentation with foot pain, fatigue
Concern for shock, septic versus cardiogenic
Elevated troponin
Elevated lactic acid
Hypotension requiring pressors
Transaminitis
CAD
s/p RCA PCI 2005
NSTEMI in setting of steal syndrome from AV fistula creation 08/2023 with cath showing MV CAD including distal L main/ostial LAD disease, medically managed
ICM, EF 25-30% by echo 08/2023 at [facility]
History of heart failure with reduced EF
ESRD on HD, started 08/2023
HTN
HLD
Mild
Mod B/L carotid artery disease
PAD
Severe below the knee disease bilaterally
Right superficial femoral artery interventions
Known critical left leg PAD
Suspected left subclavian occlusion
Type 2 diabetes, insulin dependent
Diabetic foot wounds with chronic dry gangrene, followed by vascular
Anemia of chronic disease
Chronic memory impairment
History of hysterectomy
History of noncompliance
Echo [facility] 09/06/2023: EF 25 to 30%, multiple segmental abnormalities exist, severe concentric LVH, mild , mild AR, moderate MR
Plan:
-Patient presented with foot pain and feeling poorly for the last several days
-obtained and reviewed records from primary emergency vehicle dispatcher including last office note 10/02/23, EKG 10/02/23, cath report 09/08/23, echo 09/06/23
-She is currently critically ill in the ICU with hypotension requiring multiple pressors
-Initial concern for septic shock. Workup for infection ongoing, on broad spectrum abx. May be cardiogenic shock rather than sepsis with known MV CAD, ICM, and trop of 76.
-trend trops to peak
-no CP
-She has significant vascular/cardiac history as above. she is not a candidate for surgery or PCI intervention based on reviewed records from primary emergency vehicle dispatcher
-d/w vice president fixed income. start IV heparin. continue asa, plavix
-check echo
-vascular following and amputation was being discussed for B/L foot wounds, felt to be chronic. she would be very high risk candidate for any procedures at this time.
-in ST but having some brief NSVT. will start IV amio, no bolus. follow QTc
-she is DNR. discussed patient's critical condition with patient's niece and sister at bedside. they expressed understanding of her significant medical issues. we discussed hospice care appears appropriate. they are going to have more family come in
and will likely transition to comfort care in next 24 hours if condition does not improve.
-d/w vascular, nursing in addition
-notified primary emergency vehicle dispatcher of patient's presence and plan as outlined above
Data Reviewed
-
EKG: Tracing Personally Visualized and interpreted
Medical Tests (Nuc Med, Echo etc): Report Reviewed by me
Labs: Labs Reviewed by me
Old Records: Requested and Reviewed
Critical Care Time (in minutes): 42
[2024-04-13] MEDS: STERILE WATER FOR INJECTION 10 ML IV (15:52)
[2024-04-13] MEDS: MERREM 500 MG IV (15:53)
[2024-04-13] MEDS: LOW STRENGTH ASPIRIN 81 MG PO (15:54)
[2024-04-13] MEDS: HEPARIN 25000 UNITS/250 ML IV (16:01)
--- NOTE | 2024-04-13 16:04 | W.PN.UPDATE ---
Update Note
Progress Note Update
Met with patient and family at bedside
Discussed case with cardiology
Discussed current clinical status with patient and family
Options from a vascular perspective would include right lower extremity arteriogram with 5th toe amputation and heel debridement. Left lower extremity amputation below the knee. In her condition these would be high risk procedures.
Her goals of care are to maximize quality of life and avoid surgical procedures. Most appropriate direction at this point is likely to be palliative care/hospice.
Family will discuss and I'll port heiden back tomorrow to continue discussion
Call with questions/concerns
[id number]
--- NOTE | 2024-04-13 16:24 | CHAP ---
Emotional and spiritual support provided for Anne-Marie and family at bedside. Overnight on-call reset merchandiser alerted to possible need as family gathers.
[2024-04-13] MEDS: NEO-SYNEPHRINE 250 IV (16:27)
[2024-04-13] MEDS: ROXICODONE 5 MG PO (16:36)
[2024-04-13] MEDS: PLAVIX 75 MG PO (16:36)
--- NOTE | 2024-04-13 17:34 | W.PN.DEATH ---
Pronouncement of
-
Called to see patient to pronounce.
No spontaneous heart tones or respirations noted.
Patient not responsive to verbal stimuli.
Patient is pronounced .
Time of : 16:55
Date of : 04/13/24
Cause of : Cardiogenic shock
Family Notified: Yes
--- NOTE | 2024-04-13 17:35 | PTCARENOTE ---
Pt had run of svt during echo, broke spontaneously but pt very briefly unresponsive and with progressive hypotension. Dr Santos in to speak with family and again stated to family that pt was most likely having a cardiac event and recommended that
family come in to see pt. Phenylephrine was added with plans to initiate amiodarone. Pt became restless, uncomfortable and c/o headache that was resistent to tylenol given previously. Professor Of French was notified and orders obtained for oxycodone.
Pt given oxycodone, while repositioning for comfort, pt again had arrhythmias and become unresponsive with family outside room. Family came in to room and spent last moments with patient. Physicians aware of pt passing. Dr Eid in to pronounce
pt.
--- NOTE | 2024-04-14 06:47 | W.DCSUMMARY ---
Discharge Summary
Discharge Data
Date of Admission: 04/12/24
Date of Discharge: 04/13/24
-
Pending Results: No
Hospital Course
73 years old female came into the hospital with weakness, body aches. She was found to have leukocytosis , elevated liver enzymes with lactic acidosis. Patient missed her dialysis treatment because of weakness. She had electrolyte imbalance
including hyperkalemia. She tested negative for COVID, influenza and viral hepatitis screen. Patient was dealing with lower extremity cellulitis at the facility and reportedly was on doxycycline. Patient was noted to have dry gangrene of the left
heel with right fifth toe dry gangrene and toe tips with scattered purple discoloration. Initial diagnosis was possible sepsis and septic shock with lactic acidosis. Patient was admitted to the intensive care unit and followed by ICU doctor.
She received broad-spectrum antibiotics and was seen by vascular surgeon and infectious diseases clinical consultant. Possibility of vascular intervention was initially considered if patient was going to be stable. Patient continued to have hypotension
requiring multiple medications to support her blood pressure. She had significant history of coronary artery disease and severe peripheral arterial disease. Chest radiography did not show infiltrate. Scan of the abdomen and pelvis did not show
acute abdominal etiology for the sepsis. She was noted to have elevated troponin. Echocardiogram showed left ventricular ejection fraction of 10 to 15% with wall motion abnormality. Patient was started on intravenous heparin for non-ST elevation
myocardial infarction. She underwent limited ultrafiltration with limited amount of intravenous bicarbonate drip for metabolic acidosis. She was followed by divorce lawyer. Patient was not a candidate for any surgical intervention and had
previously declined surgical options in the past. As per her primary sieve maker recommendation, she was appropriate for palliative care and did not have any revascularization options. Patient also was diagnosed with cardiogenic shock. She did
not have positive blood cultures. Goal of care discussed with patient and family. Family understood that the patient was not improving and appeared to be worsening. Patient continued to receive supportive care including vasopressors without
improvement. Patient was DO NOT RESUSCITATE/DO NOT INTUBATE per her wishes. Patient on 04/13/24.
Discharge Plan
-
Patient Disposition:
Date/Time
Date/Time: 04/13/24 16:55
Discharge Date and Time
Discharge Date/Time: 04/13/24 16:55
Print Language: HUNGARIAN
--- NOTE | 2024-04-14 11:33 | PN.CDI ---
CDI
- -
CDI:
Physician Documentation Request
Admit Date: 04/12/24 13:57
Dear Doctor Karla,
The diagnosis of NSTEMI was included in the signed concrete mason progress note on 04/13.
04/13 trop was resulted at [phone]
Please indicate in your progress notes if you are in agreement that the above diagnosis is valid for this patient:
____ - NSTEMI is a valid diagnosis (Please include it in your progress notes)
____ - NSTEMI is not a valid diagnosis for this patient
____ - Other
Use of terms such as suspected, likely, concern for, or probable are acceptable for a diagnosis that is being evaluated, monitored or treated as if it exists and can be coded in the inpatient setting, when documented at the time of discharge.
Thank you,
Annette Loyd RN BSN
CDI Specialist
tiger text
Please use your independent medical judgment in providing your response.
== END 2024-04-13 16:55 | disposition expired | DRG 871 ==
LOC: ICU 13:57
PROVIDERS: Clinical Nurse Specialist Family Health; Internal Medicine; Nurse Practitioner Primary Care; Physician Assistant; ADMITTING PHYSICIAN Internal Medicine; ATTENDING PHYSICIAN Internal Medicine; CONSULT PHYSICIAN Internal Medicine; CONSULT PHYSICIAN Internal Medicine Gastroenterology; CONSULT PHYSICIAN Internal Medicine Infectious Disease; CONSULT PHYSICIAN Nuclear Medicine Nuclear Cardiology; CONSULT PHYSICIAN Specialist; EMERGENCY PHYSICIAN Student in an Organized Health Care Education/Training Program; FAMILY PHYSICIAN Internal Medicine; OTHER PHYSICIAN Surgery Vascular Surgery
PROC: 02HV33Z Insertion of Infusion Device into Superior Vena Cava, Percutaneous Approach (ICD-10-PCS; 2024-04-13)
PROC: 5A1D70Z Performance of Urinary Filtration, Intermittent, Less than 6 Hours Per Day (ICD-10-PCS; 2024-04-13)
DX: A41.9 Sepsis, unspecified organism (principal); I21.4 Non-ST elevation (NSTEMI) myocardial infarction; R65.21 Severe sepsis with septic shock; N18.6 End stage renal disease; K72.00 Acute and subacute hepatic failure without coma; T80.211A Bloodstream infection due to central venous catheter, initial encounter; E11.52 Type 2 diabetes mellitus with diabetic peripheral angiopathy with gangrene; I47.20 Ventricular tachycardia, unspecified; I13.2 Hypertensive heart and chronic kidney disease with heart failure and with stage 5 chronic kidney disease, or end stage renal disease; I50.22 Chronic systolic (congestive) heart failure; L03.116 Cellulitis of left lower limb; E87.1 Hypo-osmolality and hyponatremia; E87.20 Acidosis, unspecified; I70.262 Atherosclerosis of native arteries of extremities with gangrene, left leg; E87.5 Hyperkalemia; Z87.891 Personal history of nicotine dependence; Z11.52 Encounter for screening for COVID-19; Y82.8 Other medical devices associated with adverse incidents; E11.22 Type 2 diabetes mellitus with diabetic chronic kidney disease; R57.0 Cardiogenic shock; Z51.5 Encounter for palliative care; I51.3 Intracardiac thrombosis, not elsewhere classified; Z66 Do not resuscitate; E11.319 Type 2 diabetes mellitus with unspecified diabetic retinopathy without macular edema; Z99.2 Dependence on renal dialysis; G47.00 Insomnia, unspecified; E78.00 Pure hypercholesterolemia, unspecified; Z79.4 Long term (current) use of insulin
CPT/HCPCS: 71046; 73630; 74177; 80048; 80053; 80061; 80076; 80202; 82533; 82550; 82805; 82962; 83036; 83605; 83690; 83735; 84132; 84302; 84484; 85025; 85610; 85730; 86706; 86708; 86803; 87040; 87070; 87340; 87502; 87811; 93005; 93306; 93971; 96361; 96365; 96366; 96367; 96375; 99285; G0257; J2185; P9047; Q9950; Q9967